=== PATIENT | male | born 1940 | race Caucasian/White ===

== ENCOUNTER → 2023-08-08 | Outpatient (CLI) | payer MEDICAID | END | disposition home or self-care (01) | LOC: XYW 14:40 | PROVIDERS: ATTEND Student in an Organized Health Care Education/Training Program | DX: I10 Essential (primary) hypertension (principal); R60.0 Localized edema | CPT/HCPCS: 93306 ==

== ENCOUNTER 2023-09-20 10:27 | Emergency (ER) | payer MEDICAID ==
[~2023-09-20] VITALS: Ht 406.4 cm; Wt 106.5 kg
[2023-09-20 11:28] LABS: Chloride 108 mmol/L (98-107); Potassium 3.8 mmol/L (3.5-5.1); Sodium 138 mmol/L (136-145)
[2023-09-20 11:29] LABS: Anion Gap 6 (5-15); Carbon Dioxide 24 mmol/L (20-30)
[2023-09-20 11:35] LABS: BUN/Creatinine Ratio 13.3 (10.0-20.0); Blood Urea Nitrogen 12 mg/dL (9-23); Glucose 110 mg/dL (74-106)
[2023-09-20] MEDS: CLINDAMYCIN 600MG IV 50 ML IV ONE (11:35)
[2023-09-20] MEDS: cloNIDine HCL 0.1 MG TAB PO ONE (11:44)
[2023-09-20 12:12] LABS: Erythrocyte Sedimentation Rate 22 mm/hr (0-20)
[2023-09-20 12:17] LABS: Basophils # (auto) 0 10 ^3/uL (0-0.2); Basophils % (auto) 0.3 % (0.0-2.0); Eosinophils # (auto) 0.1 10 ^3/uL (0-0.8); Eosinophils % (auto) 1.5 % (0.0-7.0); Hematocrit 44.3 % (41.0-53.0); Hemoglobin 15.6 g/dL (13.5-17.5); Lymphocytes # (auto) 1.1 10 ^3/uL (0.4-5.4); Lymphocytes % (auto) 20.6 % (10.0-50.0); Mean Corpuscular Hemoglobin 31.8 pg (28.0-32.0); Mean Corpuscular Hgb Conc. 35.1 g/dL (32.0-36.0); Mean Corpuscular Volume 90.5 fL (80.0-100.0); Monocytes # (auto) 0.4 10 ^3/uL (0-1.3); Monocytes % (auto) 7.7 % (0.0-12.0); Neutrophils # (auto) 3.7 10 ^3/uL (1.6-8.6); Neutrophils % (auto) 69.9 % (37.0-80.0); Nucleated Red Blood Cells % 0.1 %; Red Cell Distribution Width 13.4 % (11.8-14.3); White Blood Cell 5.3 10^3/uL (4.4-10.8)
[2023-09-20] MEDS ORDERED: CLIN150C PO (12:29)
[2023-09-20 14:22] VITALS: BP 129/55; PULSE 75; RESP 16; TEMP 97.9; O2SAT 96
== END 2023-09-20 14:23 | disposition home or self-care (01) ==
LOC: ER 10:29
DX: L03.115 Cellulitis of right lower limb (principal); E78.5 Hyperlipidemia, unspecified; I10 Essential (primary) hypertension
CPT/HCPCS: 36415; 73630; 80048; 85025; 85652; 96365; 99285; J3490

== ENCOUNTER → 2023-11-04 | Outpatient (CLI) | payer MEDICAID ==
[~2023-11-04] VITALS: Ht 175.3 cm; Wt 99.8 kg
[~2023-11-04] MED LIST: CLIN150C PO; REGADENOSON 0.4 MG/5 ML SYRG IV ONE
[2023-11-04] MEDS: REGADENOSON 0.4 MG/5 ML SYRG IV ONE (13:07)
== END | disposition home or self-care (01) ==
LOC: XYW 09:38
PROVIDERS: ATTEND Student in an Organized Health Care Education/Training Program
DX: R07.9 Chest pain, unspecified (principal)
CPT/HCPCS: 93017; J2785

== ENCOUNTER 2024-01-18 06:27 | Inpatient (IN) | payer OTHER, MEDICAID ==
[2024-01-16 10:57] LABS: Urine Bacteria None Seen /hpf (None Seen)
[2024-01-16 11:21] LABS: Urine Blood Negative /uL (Negative); Urine Clarity Clear (Clear); Urine Color Yellow (Yellow); Urine Mucus FEW (None Seen); Urine Protein, UAD TRACE (Negative); Urine Specific Gravity 1.024 (1.001-1.035); Urine Urobilinogen Normal (Negative); Urine WBC 1 /hpf (0 - 3)
[2024-01-16 11:23] LABS: Basophils # (auto) 0 10 ^3/uL (0-0.2); Basophils % (auto) 0.6 % (0.0-2.0); Eosinophils # (auto) 0.1 10 ^3/uL (0-0.8); Eosinophils % (auto) 1.5 % (0.0-7.0); Hematocrit 44.3 % (41.0-53.0); Lymphocytes # (auto) 1.1 10 ^3/uL (0.4-5.4); Mean Corpuscular Hemoglobin 31.2 pg (28.0-32.0); Mean Corpuscular Hgb Conc. 33.8 g/dL (32.0-36.0); Mean Corpuscular Volume 92.2 fL (80.0-100.0); Monocytes # (auto) 0.3 10 ^3/uL (0-1.3); Monocytes % (auto) 7.6 % (0.0-12.0); Neutrophils # (auto) 2.8 10 ^3/uL (1.6-8.6); Neutrophils % (auto) 64.3 % (37.0-80.0); Platelet Count (auto) 231 10^3/uL (140-450); Red Cell Distribution Width 13.3 % (11.8-14.3); White Blood Cell 4.4 10^3/uL (4.4-10.8)
[2024-01-16 11:28] LABS: Alanine Aminotransferase 13 U/L (7-40); Albumin 4.2 g/dL (3.2-4.8); Alkaline Phosphatase 109 U/L (46-116); Anion Gap 3 (5-15); Aspartate Aminotransferase 14 U/L (13-40); BUN/Creatinine Ratio 15.3 (10.0-20.0); Blood Urea Nitrogen 17 mg/dL (9-23); Carbon Dioxide 29 mmol/L (20-31); Chloride 107 mmol/L (98-107); Potassium 4.3 mmol/L (3.5-5.1); Sodium 139 mmol/L (136-145)
[2024-01-16 11:29] LABS: Bilirubin, Total 0.9 mg/dL (0.2-1.0); Total Protein 6.9 g/dL (5.7-8.2)
[2024-01-16 11:30] LABS: INR 1.09 (0.9-1.15); Partial Thromboplastin Time 28.4 SEC (24.5-34.5); Prothrombin Time 11.5 sec (9.3-11.8)
[2024-01-16 11:35] LABS: Calcium 10.5 mg/dL (8.7-10.4); Glucose 109 mg/dL (74-106)
[~2024-01-18] VITALS: Ht 177.8 cm; Wt 112.9 kg
[~2024-01-18 06:27] MED LIST changes: +AMLO1TAB22 PO; +ASPI1TAB20 PO; +ATOR-507 PO; -CLIN150C PO; +LOSA-534 PO; -REGADENOSON 0.4 MG/5 ML SYRG IV ONE
[2024-01-18] MEDS ORDERED: KETOROLAC TROMETH 30 MG/ML 1ML VIAL ONE ×2 (06:40→06:53)
[2024-01-18] MEDS: CELECOXIB 100 MG CAP PO ONE (06:45)
[2024-01-18] MEDS: ACETAMINOPHEN IV 1000 MG/100ML (10MG/ML) IV ONE (06:45)
[2024-01-18] MEDS: GABAPENTIN 300 MG CAP PO ONE (06:45)
[2024-01-18] MEDS ORDERED: ONDANSETRON HCL 4 MG/2 ML VIAL ONE (06:53)
[2024-01-18] MEDS ORDERED: GLYCOPYRROLATE 0.2 MG/ML 1ML VIAL ONE (06:53)
[2024-01-18] MEDS ORDERED: DexAMETHasone SOD PHOS 10MG/1ML VIAL INJ ONE ×2 (06:53→07:18)
[2024-01-18] MEDS ORDERED: LIDOCAINE 1% INJ PF 5ML AMP ONE (06:53)
[2024-01-18] MEDS ORDERED: PROPOFOL 10 MG/ML 20 ML IV ONE ×2 (06:53→08:00)
[2024-01-18] MEDS ORDERED: EPINEPHrine HCL 1 MG/1 ML AMP ONE (07:18)
--- NOTE | 2024-01-18 07:29 | DVHHP2 ---
History Allergies: Coded Allergies: NO KNOWN ALLERGIES (Unverified , 09/15/22) Chief Complaint: left groin pain, worse with ambulationn, use of cane on right side Present Illness(Onset/Duration several year history of progressive left groin pain, worse with ambulation, lauren to ambulate 1-2 hr per day using cane on right side Past Surgical History none declared Medications amiodipine atorvastatin losartan ASA "blood thinners" off x 3 d Physical Exam EENT NCAT Chest and Lungs CTA B Heart RRR neg MRG Abdomen NBS ND NT Extremities Left LE, NVI, no LLD, pain with PROM, poor PROM, flex 90m ext -5, min IR ER Impressions/Description Left hip OA , end stage, with acetabular cysts Plan pre op clearance done by internal med and caridology and determined to be intermediate risk, cleared for surgery surgery Left LISA CHEMA GASPAR MD Jan 18, 2024 07:29
[2024-01-18] MEDS ORDERED: LIDOCAINE HCL 2% TOP JELLY 5ML TOP ONE (07:46)
[2024-01-18] MEDS ORDERED: PHENYLEPHRINE HCL 10 MG/ML VL ONE (07:46)
[2024-01-18] MEDS ORDERED: ePHEDrine SULFATE 50 MG/ML AMP ONE (07:48)
[2024-01-18] MEDS: VANCOMYCIN HCL 1000 MG VL ONE (08:10)
[2024-01-18 09:13] VITALS: O2SAT 94
[2024-01-18] MEDS ORDERED: oxyCODONE HCL 5MG TAB PO PRN ×2 (09:30→09:45)
[2024-01-18] MEDS ORDERED: FLUMAZENIL 0.1 MG/ML INJ 10ML MDV IV PRN (09:30)
[2024-01-18] MEDS ORDERED: hydrALAZINE HCL 20 MG/ML VL IV PRN (09:30)
[2024-01-18] MEDS ORDERED: ePHEDrine SULFATE 50 MG/ML AMP IV PRN (09:30)
[2024-01-18] MEDS ORDERED: ONDANSETRON HCL 4 MG/2 ML VIAL IV PRN ×2 (09:30→11:30)
[2024-01-18] MEDS ORDERED: fentaNYL CITRATE 100 MCG/2 ML VL IV PRN (09:30)
[2024-01-18] MEDS ORDERED: HYDROmorphone HCL 2 MG/ML VL/or syr IV PRN (09:30)
[2024-01-18] MEDS ORDERED: NALOXONE HCL 0.4 MG/ML VIAL IV PRN (09:30)
[2024-01-18] MEDS ORDERED: NITROGLYCERIN 0.4 MG SL TAB SL PRN (10:00)
[2024-01-18] MEDS ORDERED: MORPHINE SULFATE INJ 2 MG/ml SYRG IV PRN ×2 (10:00)
[2024-01-18] MEDS: ceFAZolin 2 GM/D5W100ml 100 ML IV ONE (10:47)
[2024-01-18] MEDS: BUPIVACAINE 0.25% INJ 50ML VIAL ONE (10:48)
[2024-01-18] MEDS: TRANEXAMIC ACID 20 ML ONE (10:48)
[2024-01-18] MEDS ORDERED: ACETAMINOPHEN 325 MG TAB PO PRN (11:30)
--- NOTE | 2024-01-18 11:39 | DVHOP2 ---
Operative Report - 2 Report Details Date: 01/18/24 Preop Diagnosis: Left hip OA endstage Postop Diagnosis: same Surgeon: Chema Gaspar MD Molecular Genetic Pathologist: none Anesthesiologist: Dr Kellogg Anesthesia: Regional Drains: none Implant: summit stem , , 46 acetabular cut, one acetabular acrew, standard liner Consent: The patient was informed of the risks and benefits of the procedure. These include but are not limited to complications of anesthesia, postoperative infection, incomplete relief of symptoms, recurrence of symptoms, damage to blood vessels, nerves and tendons, deep venous thrombosis, pulmonary embolism and possible need for repeat surgery in the future. Complications: none Estimated Blood Loss: 100 cc Fluids: 1 l NS Findings: left hip OA end satge Indications for Surgery: Left hip OA end stage non - responseive to conservative care Name of Procedure Performed Left LISA Procedure Details Procedure Details: Patient brought to the operating room given Ancef 2 g IV piggyback preope ratively TXA 1 g IV piggyback preoperatively spinal anesthetic without complication by Dr. Kellogg placed into right lateral decubitus position axillary roll pads beneath between both legs belt across waist had an anatomic position arms well-padded pegs anterior and posterior well-padded sterile prep and drape left hip and lower extremity time-out performed confirmation left side correct side after review of operative consent history and physical my initials on left buttock standard Akila lying in back incision made centered over the greater trochanter sharp dissection through skin around the deep fascia division of the fascia blunt retraction of glute max fibers posteriorly tensor fascia augusto fibers anteriorly Charnley retractor placed internal rotation of leg and division of the external rotators and posterior capsule EN bloc Aguilera of posterior capsule to expose the hip joint hip dislocated with flexion adduction internal rotation osteotomy performed of femoral neck and 45 placement of Hohmann retractor anterior to the acetabulum removal of acetabulum labrum acetabular labrum circumferentially reaming 45 degree abduction 30 degree anteversion up to size 46 curette used to remove scar from a superior acetabular cyst bone graft packed into this cyst acetabulum tamped into place with one vertical screw at 45 degree abduction 30 of anteversion liner tapped into place and excellent seating of the liner confirmed femoral canal prepared by using box osteotome to remove far lateral neck canal finer lateralizing Reamer broach up to size 10 and 11 fixed stem system [place] type used trial reduction done with high offset plus six neck with excellent stability seen with flexion extension external rotation flexion 90 adduction 20 internal rotation 80 true component then tapped into place again a [place] stem high offset plus six neck stability assessed again with extension external rotation flexion 90 adduction 20 internal rotation 80 with excellent stability seen irrigation then performed vancomycin placed into deep joint capsule were repaired 0 Vicryl subcutaneous or so deep fascia 0 Vicryl subcutaneous 2-0 Vicryl skin angélica fluffs ABD paper tape no drains specimens complications Specimen: none Condition Stable Disposition Still a Patient CHEMA GASPAR MD Jan 18, 2024 11:39
[2024-01-18] MEDS: ceFAZolin 1GM/50ML 50 ML IV SCH (12:26)
[2024-01-18] MEDS: LACTATED RINGER'S 1,000 ML IV SCH (12:26)
[2024-01-18] MEDS: CLINDAMYCIN 600MG IV 50 ML IV SCH (12:26)
[2024-01-18 13:00] VITALS: BP 152/90; PULSE 84; RESP 18; TEMP 97.9; O2SAT 92
--- NOTE | 2024-01-18 13:17 | DVH ---
CLINICAL INFORMATION: 83 years old, Male; post op left total hip arthroplasty TECHNIQUE: Single AP view of the pelvis was obtained COMPARISON: Left hip radiographs dated 01/02/2024. FINDINGS: Postsurgical changes of left total hip arthroplasty. The prosthesis is in satisfactory alig nment and position. Soft tissue swelling and gas within the soft tissues adjacent to the surgical sit e, consistent with recent postoperative changes. Partially visualized cutaneous angélica in the soft t issues lateral to the right hip. [place] catheter incidentally noted, extending into the pelvis. Arteri al calcifications are seen. IMPRESSION: Postsurgical changes of right total hip arthroplasty in satisfactory alignment and position
--- NOTE | 2024-01-18 14:39 | DVHINCON2 ---
Date Seen: Jan 18, [address] Lanza Allergies: Coded Allergies: NO KNOWN ALLERGIES (Unverified , 09/15/22) Home Meds Reported Medications Atorvastatin Calcium (Lipitor) 40 Mg Tab, 40 MG PO DAILY, TAB 01/16/24 Losartan Potassium (Losartan Potassium) 50 Mg Tab, 50 MG PO QPM, TAB 01/16/24 Amlodipine Besylate (Amlodipine Besylate) 5 Mg Tab, 5 MG PO DAILY, TAB 01/16/24 Aspirin (Aspir-81) 81 Mg Tab, 81 MG PO DAILY, TAB 01/16/24 Current Medications Current Medications Medications (Trade) Dose Ordered Sig/Gisele Route PRN Reason Start Time Stop Time Status Last Admin Ondansetron HCl (Zofran) 4 mg ONCE PRN IV NAUSEA / VOMITING 01/18/24 09:30 01/18/24 09:36 DC Naloxone HCl (Narcan) 0.4 mg Q10M PRN IV NARCOTIC REVERSAL 01/18/24 09:30 01/18/24 09:51 DC Flumazenil (Romazicon Injection) 0.2 mg ONCE PRN IV BENZODIAZEPINE REVERSAL 01/18/24 09:30 01/18/24 09:36 DC Hydralazine HCl (Apresoline Injection) 5 mg Q10M PRN IV SBP>160 01/18/24 09:30 01/18/24 10:21 DC Ephedrine Sulfate (ePHEDrine SULFATE) 10 mg Q10M PRN IV SBP LESS THAN 90 01/18/24 09:30 01/18/24 10:11 DC Fentanyl Citrate 25 mcg Q1HP PRN IV BREAKTHROUGH PAIN (7-10) 01/18/24 09:30 01/18/24 09:36 DC Hydromorphone HCl (Dilaudid Injection) 0.5 mg Q10M PRN IV SEVERE PAIN (7-10 PAIN SCALE) 01/18/24 09:30 01/18/24 10:11 DC Oxycodone HCl 10 mg ONCE PRN PO MODERATE PAIN (4-6 PAIN SCALE) 01/18/24 09:30 01/18/24 09:37 DC Oxycodone HCl 10 mg ONCE PRN PO MODERATE PAIN (4-6 PAIN SCALE) 01/18/24 09:45 01/18/24 12:00 DC Nitroglycerin (Ntrostat Sublingual) 0.4 mg Q5MINP PRN SL FOR CHEST PAIN 01/18/24 10:00 Morphine Sulfate 2 mg Q30M PRN IV FOR CHEST PAIN 01/18/24 10:00 Morphine Sulfate 2 mg Q4HPRN PRN IV SEVERE PAIN (7-10 PAIN SCALE) 01/18/24 10:00 Lactated Ringer's 1,000 ml @ 100 mls/hr Q10H IV 01/18/24 11:30 01/18/24 12:26 Cefazolin Sodium 50 ml @ 50 mls/hr Q6H IV 01/18/24 11:30 01/19/24 00:29 01/18/24 12:26 Clindamycin Phosphate 50 ml @ 50 mls/hr Q6HR IV 01/18/24 12:00 01/19/24 00:59 01/18/24 12:26 Acetaminophen (Tylenol Tablet) 650 mg Q6HP PRN PO MILD PAIN OR TEMP >101 01/18/24 11:30 Ondansetron HCl (Zofran) 4 mg Q6HP PRN IV NAUSEA / VOMITING 01/18/24 11:30 Docusate Sodium (Colace Capsule) 100 mg Q12HR PO 01/18/24 22:00 Bisacodyl (Dulcolax EC Tablet) 5 mg Q12HP PRN PO FOR CONSTIPATION 01/18/24 11:30 Enoxaparin Sodium (Lovenox) 30 mg Q12HR SC 01/18/24 22:00 Vital Signs Vital Signs Date Time Temp Pulse Resp B/P (MAP) Pulse Ox O2 Delivery O2 Flow Rate FiO2 01/18/24 13:00 97.9 84 18 152/90 (110) 92 97.9 01/18/24 09:13 Room Air 0 94 Labs/Diagnostic Data Labs Test 01/16/24 10:53 Range/Units White Blood Count 4.4 4.4-10.8 10^3/uL Red Blood Count 4.80 4.5-5.90 10^6/uL Hemoglobin 15.0 13.5-17.5 g/dL Hematocrit 44.3 41.0-53.0 % Mean Corpuscular Volume 92.2 80.0-100.0 fL Mean Corpuscular Hemoglobin 31.2 28.0-32.0 pg Mean Corpuscular Hemoglobin Concent 33.8 32.0-36.0 g/dL Red Cell Distribution Width 13.3 11.8-14.3 % Platelet Count 231 140-450 10^3/uL Mean Platelet Volume 7.3 6.9-10.8 fL Neutrophils (%) (Auto) 64.3 37.0-80.0 % Lymphocytes (%) (Auto) 26.0 10.0-50.0 % Monocytes (%) (Auto) 7.6 0.0-12.0 % Eosinophils (%) (Auto) 1.5 0.0-7.0 % Basophils (%) (Auto) 0.6 0.0-2.0 % Neutrophils # (Auto) 2.8 1.6-8.6 10 ^3/uL Lymphocytes # (Auto) 1.1 0.4-5.4 10 ^3/uL Monocytes # (Auto) 0.3 0-1.3 10 ^3/uL Eosinophils # (Auto) 0.1 0-0.8 10 ^3/uL Basophils # (Auto) 0 0-0.2 10 ^3/uL Nucleated Red Blood Cells 0.0 % Prothrombin Time 11.5 9.3-11.8 sec Prothrombin Time INR 1.09 0.9-1.15 Activated Partial Thromboplast Time 28.4 24.5-34.5 SEC Urine Color Yellow Yellow Urine Clarity Clear Clear Urine pH 6.0 5.0-9.0 Urine Specific [place] 1.024 1.001-1.035 Urine Protein Trace H Negative Urine Ketones Negative Negative Urine Blood Negative Negative /uL Urine Nitrite Negative Negative Urine Bilirubin Negative Negative Urine Urobilinogen Normal Negative mg/dL Urine Leukocyte Esterase Negative Negative /uL Urine RBC 1 0 - 3 /hpf Urine WBC 1 0 - 3 /hpf Urine Squamous Epithelial Cells Few <5 /hpf Urine Bacteria None seen None Seen /hpf Urine Mucus Few None Seen Urine Glucose Normal Normal mg/dL Sodium Level 139 136-145 mmol/L Potassium Level 4.3 3.5-5.1 mmol/L Chloride Level 107 98-107 mmol/L Carbon Dioxide Level 29 20-31 mmol/L Anion Gap 3 L 5-15 Blood Urea Nitrogen 17 9-23 mg/dL Creatinine 1.11 0.700-1.30 mg/dL Glomerular Filtration Rate Calc 66 >90 mL/min BUN/Creatinine Ratio 15.3 10.0-20.0 Serum Glucose 109 H 74-106 mg/dL Calcium Level 10.5 H 8.7-10.4 mg/dL Total Bilirubin 0.9 0.2-1.0 mg/dL Aspartate Amino Transferase (AST) 14 13-40 U/L Alanine Aminotransferase (ALT) 13 7-40 U/L Alkaline Phosphatase 109 46-116 U/L Total Protein 6.9 5.7-8.2 g/dL Albumin 4.2 3.2-4.8 g/dL Assessment see dictated note Plan discussed with: Patient Date of Service: Jan 18, 2024 Billing Provider: GLORIA SALAZAR MD Common Visit Codes: [id number] INP/OBS CARE (HIGH) Secondary Visit Codes: [id number] CARE PLAN 30 MINUTES GLORIA SALAZAR MD Jan 18, 2024 14:39
--- NOTE | 2024-01-18 16:25 | DVHINCON2 ---
DATE OF CONSULTATION: 01/18/2024 INTERNAL MEDICINE CONSULT HISTORY OF PRESENT ILLNESS: The patient is an 83-year-old gentleman who was admitted after he underwent surgery on the left hip for DJD of the hip. The patient at this time denies any significant pain. No chest pain or shortness of breath. No nausea or vomiting. REVIEW OF SYSTEMS: Review of rest of systems is otherwise negative. PAST MEDICAL HISTORY: Significant for hypertension as well as hyperlipidemia. MEDICATIONS: Include amlodipine, aspirin, Lipitor and losartan. ALLERGIES: No known drug allergies. SOCIAL HISTORY: Denies smoking or alcohol. Lives at home with his . FAMILY HISTORY: Negative. PHYSICAL EXAMINATION: GENERAL: The patient is awake, alert. VITAL SIGNS: Temperature of 97.9, pulse 75 per minute, blood pressure 140/80. SHEENT: Unremarkable. NECK: There is no JVD, no pedal edema. LUNGS: Equal bilaterally. No added sounds. CARDIOVASCULAR: S1, S2 is regular, no murmurs. ABDOMEN: Soft. There is no organomegaly. NEUROLOGIC: Nonfocal. MUSCULOSKELETAL: There is a dressing at the site of the left hip surgery. ASSESSMENT AND PLAN: * 1. Hypertension, for which the patient's blood pressure will be monitored. * 2. Hyperlipidemia. * 3. Obesity. * 4. Advance care planning, the patient is a full code. Time spent was 19 minutes. * 5. Status post left hip surgery for DJD of the hip for which he will be placed on pain medications and receive physical therapy. MD ADRI Louis/BRETT TID: [id number] RECEIPT: [id number]
[2024-01-18] MEDS: hydrALAZINE HCL 20 MG/ML VL IV PRN (16:46)
[2024-01-18] MEDS: amLODIPine BESYLATE 5 MG TAB PO ONE (16:46)
[2024-01-18 17:48] VITALS: BP 124/69; PULSE 87; RESP 17; TEMP 98.8; O2SAT 98
[2024-01-18 18:05] VITALS: BP 147/70
[2024-01-18 21:00] VITALS: BP 108/69; PULSE 100; RESP 20; TEMP 98.9; O2SAT 94
[2024-01-18] MEDS: DOCUSATE SOD 100 MG CAP PO SCH (22:19)
[2024-01-18] MEDS: ENOXAPARIN SOD 30 MG/0.3 ML SYRINGE SC SCH (22:20)
[2024-01-19 01:00] VITALS: BP 110/70; PULSE 96; RESP 18; TEMP 98.8; O2SAT 99
[2024-01-19] MEDS: HYDROcodone-ACET 5/325MG TAB PO PRN (03:44)
[2024-01-19 05:00] VITALS: BP 119/60; PULSE 74; RESP 20; TEMP 98.8; O2SAT 95
[2024-01-19 07:13] LABS: Basophils # (auto) 0 10 ^3/uL (0-0.2); Eosinophils # (auto) 0 10 ^3/uL (0-0.8); Hematocrit 35.5 % (41.0-53.0); Lymphocytes # (auto) 0.8 10 ^3/uL (0.4-5.4); Lymphocytes % (auto) 5.7 % (10.0-50.0); Mean Corpuscular Hemoglobin 31.3 pg (28.0-32.0); Mean Corpuscular Hgb Conc. 33.7 g/dL (32.0-36.0); Mean Corpuscular Volume 92.7 fL (80.0-100.0); Monocytes % (auto) 7.5 % (0.0-12.0); Neutrophils # (auto) 11.5 10 ^3/uL (1.6-8.6); Neutrophils % (auto) 86.8 % (37.0-80.0); Platelet Count (auto) 199 10^3/uL (140-450); Red Blood Cells 3.83 10^6/uL (4.5-5.90); Red Cell Distribution Width 13.3 % (11.8-14.3); White Blood Cell 13.3 10^3/uL (4.4-10.8)
[2024-01-19 07:29] LABS: Alanine Aminotransferase 12 U/L (7-40); Albumin 3.3 g/dL (3.2-4.8); Alkaline Phosphatase 77 U/L (46-116); Anion Gap 7 (5-15); Aspartate Aminotransferase 21 U/L (13-40); Bilirubin, Total 0.4 mg/dL (0.2-1.0); Blood Urea Nitrogen 22 mg/dL (9-23); Calcium 9.9 mg/dL (8.7-10.4); Carbon Dioxide 23 mmol/L (20-31); Potassium 4.4 mmol/L (3.5-5.1); Sodium 138 mmol/L (136-145)
[2024-01-19 07:38] LABS: Chloride 108 mmol/L (98-107); Glucose 219 mg/dL (74-106); Total Protein 5.3 g/dL (5.7-8.2)
[2024-01-19 09:22] VITALS: BP 100/64; PULSE 85; RESP 18; TEMP 98; O2SAT 96
[2024-01-19] MEDS: amLODIPine BESYLATE 5 MG TAB PO SCH (11:05)
[2024-01-19 13:12] VITALS: BP 110/66; PULSE 80; RESP 19; TEMP 98.3; O2SAT 95
--- NOTE | 2024-01-19 13:55 | DVHPN2 ---
Progress Note Date Seen: Jan 19, 2024 Medical Necessity Reason Pt with a Central, PICC or Fol: No Subjective Patient reports: No new complaints Review of Systems: HEENT:Normal, CVS:Normal, RESPIRATORY:Normal, GI:Normal, :Normal, MSK:Normal, NEURO:Normal Objective vital signs Vital Sign Date Time Temp Pulse Resp B/P (MAP) Pulse Ox O2 Delivery O2 Flow Rate FiO2 01/19/24 13:12 98.3 80 19 110/66 (81) 95 98.3 01/19/24 07:33 Room Air* 0 21 Total Intake and Output 01/18/24 01/18/24 01/19/24 15:00 23:00 07:00 Intake Total 100 ml 400 ml 600 ml Output Total 200 ml 800 ml 350 ml Balance -100 ml -400 ml 250 ml medications Current Medications Medications Dose Ordered Sig/Gisele Route Start Time Stop Time Status Last Admin Dose Admin Nitroglycerin 0.4 mg Q5MINP PRN SL 01/18/24 10:00 Morphine Sulfate 2 mg Q30M PRN IV 01/18/24 10:00 Morphine Sulfate 2 mg Q4HPRN PRN IV 01/18/24 10:00 Lactated Ringer's 1,000 ml @ 100 mls/hr Q10H IV 01/18/24 11:30 01/19/24 08:07 100 MLS/HR Acetaminophen 650 mg Q6HP PRN PO 01/18/24 11:30 Ondansetron HCl 4 mg Q6HP PRN IV 01/18/24 11:30 Docusate Sodium 100 mg Q12HR PO 01/18/24 22:00 01/19/24 11:03 100 MG Bisacodyl 5 mg Q12HP PRN PO 01/18/24 11:30 Enoxaparin Sodium 30 mg Q12HR SC 01/18/24 22:00 01/19/24 11:04 30 MG Acetaminophen/ Hydrocodone Bitart 1 tab Q6HPRN PRN PO 01/18/24 14:45 01/19/24 03:44 1 TAB Amlodipine Besylate 5 mg DAILY PO 01/19/24 10:00 01/19/24 11:05 5 MG Hydralazine HCl 10 mg Q6HP PRN IV 01/18/24 16:00 01/18/24 16:46 10 MG Examination: GENERAL:Normal, HEENT:Normal, NECK:Normal, LUNGS:Normal, CVS:Normal, ABDOMEN:Normal, MSK:Normal, MSK:Abnormal (left hip dressing), SKIN:Normal, NEURO:Normal, :Normal laboratory and microbiology Laboratory Tests 01/19/24 05:53 Test 01/19/24 05:53 Range/Units Serum Glucose 219 #H 74-106 mg/dL Problem List/Assessment/Plan Problem List/Assessment/Plan * 1. Hypertension, for which the patient's blood pressure will be monitored. * 2. Hyperlipidemia. * 3. Obesity. * 4. Advance care planning, the patient is a full code. Time spent was 19 minutes. * 5. Status post left hip surgery for DJD of the hip for which he will be placed on pain medications and receive physical therapy. Plan discussed with: Patient My Orders My Orders Orders - GLORIA SALAZAR MD Procedure Category Date Status Time Hydrocodone-Acet PHA 01/18/24 In Process 5/325mg Tab ([place] 14:45 Amlodipine Tablet PHA 01/19/24 In Process (Norvasc Tablet) 10:00 Hydralazine Injection PHA 01/18/24 In Process (Apresoline Inject 16:00 * Brand Recorder CONS 01/18/24 Transmitted Consult 16:23 Date of Service: Jan 19, 2024 Billing Provider: GLORIA SALAZAR MD Common Visit Codes: [id number] INP/OBS CARE(HIGH) Secondary Visit Codes: [id number] CARE PLAN 30 MINUTES GLORIA SALAZAR MD Jan 19, 2024 13:55
[2024-01-19] MEDS: LACTATED RINGER'S 1,000 ML IV SCH (14:40)
[2024-01-19 17:17] VITALS: BP 158/70; PULSE 84; RESP 20; TEMP 98.2; O2SAT 95
--- NOTE | 2024-01-19 18:32 | DVHPN2 ---
Date of Progress Note Date of Progress Note Date of Progress Note: 01/19/24 Date of Admission Date of Admission Date of Admission: Date of Admission: Jan 18, 2024 at 09:56 Overnight Events Overnight events Overnight Events Pt tripp pain on PO meds [place] out, able to void tripp PT today Family History Family History Family History: Patient reports no known family medical history. Allergies: Coded Allergies: NO KNOWN ALLERGIES (Unverified , 09/15/22) Home Meds Reported Medications Atorvastatin Calcium (Lipitor) 40 Mg Tab, 40 MG PO DAILY, TAB 01/16/24 Losartan Potassium (Losartan Potassium) 50 Mg Tab, 50 MG PO QPM, TAB 01/16/24 Amlodipine Besylate (Amlodipine Besylate) 5 Mg Tab, 5 MG PO DAILY, TAB 01/16/24 Aspirin (Aspir-81) 81 Mg Tab, 81 MG PO DAILY, TAB 01/16/24 Current Medications Current Medications Medications (Trade) Dose Ordered Sig/Gisele Route PRN Reason Start Time Stop Time Status Last Admin Docusate Sodium (Colace Capsule) 100 mg Q12HR PO 01/18/24 22:00 01/19/24 11:03 Enoxaparin Sodium (Lovenox) 30 mg Q12HR SC 01/18/24 22:00 01/19/24 11:04 Amlodipine Besylate (Norvasc Tablet) 5 mg DAILY PO 01/19/24 10:00 01/19/24 13:53 DC 01/19/24 11:05 Lactated Ringer's 1,000 ml @ 75 mls/hr [id number] IV 01/19/24 14:00 01/19/24 17:24 DC 01/19/24 14:40 Physical Examination General Examination: Last Vital sign Vital Signs Date Time Temp Pulse Resp B/P (MAP) Pulse Ox O2 Delivery O2 Flow Rate FiO2 01/19/24 17:17 98.2 84 20 158/70 (99) 95 98.2 01/19/24 07:33 Room Air* 0 21 General: General: No apparent distress, appears comfortable. Cooperative. Extremities: Left LE NVI, no drainage Skin: no surgical drainage Neurological Examination: Neurological Examination: Mental Status: Cranial Nerves: Motor Examination: Reflexes: Sensory: Coordination: Gait: NVI Labs: Labs: Laboratory Tests Test 01/16/24 10:53 01/19/24 05:53 Range/Units White Blood Count 4.4 13.3 #H 4.4-10.8 10^3/uL Red Blood Count 4.80 3.83 L 4.5-5.90 10^6/uL Hemoglobin 15.0 12.0 #L 13.5-17.5 g/dL Hematocrit 44.3 35.5 #L 41.0-53.0 % Mean Corpuscular Volume 92.2 92.7 80.0-100.0 fL Mean Corpuscular Hemoglobin 31.2 31.3 28.0-32.0 pg Mean Corpuscular Hemoglobin Concent 33.8 33.7 32.0-36.0 g/dL Red Cell Distribution Width 13.3 13.3 11.8-14.3 % Platelet Count 231 199 140-450 10^3/uL Mean Platelet Volume 7.3 7.8 6.9-10.8 fL Neutrophils (%) (Auto) 64.3 86.8 H 37.0-80.0 % Lymphocytes (%) (Auto) 26.0 5.7 L 10.0-50.0 % Monocytes (%) (Auto) 7.6 7.5 0.0-12.0 % Eosinophils (%) (Auto) 1.5 0.0 0.0-7.0 % Basophils (%) (Auto) 0.6 0.0 0.0-2.0 % Neutrophils # (Auto) 2.8 11.5 H 1.6-8.6 10 ^3/uL Lymphocytes # (Auto) 1.1 0.8 0.4-5.4 10 ^3/uL Monocytes # (Auto) 0.3 1.0 0-1.3 10 ^3/uL Eosinophils # (Auto) 0.1 0 0-0.8 10 ^3/uL Basophils # (Auto) 0 0 0-0.2 10 ^3/uL Nucleated Red Blood Cells 0.0 0.0 % Prothrombin Time 11.5 9.3-11.8 sec Prothrombin Time INR 1.09 0.9-1.15 Activated Partial Thromboplast Time 28.4 24.5-34.5 SEC Urine Color Yellow Yellow Urine Clarity Clear Clear Urine pH 6.0 5.0-9.0 Urine Specific [place] 1.024 1.001-1.035 Urine Protein Trace H Negative Urine Ketones Negative Negative Urine Blood Negative Negative /uL Urine Nitrite Negative Negative Urine Bilirubin Negative Negative Urine Urobilinogen Normal Negative mg/dL Urine Leukocyte Esterase Negative Negative /uL Urine RBC 1 0 - 3 /hpf Urine WBC 1 0 - 3 /hpf Urine Squamous Epithelial Cells Few <5 /hpf Urine Bacteria None seen None Seen /hpf Urine Mucus Few None Seen Urine Glucose Normal Normal mg/dL Sodium Level 139 138 136-145 mmol/L Potassium Level 4.3 4.4 3.5-5.1 mmol/L Chloride Level 107 108 H 98-107 mmol/L Carbon Dioxide Level 29 23 20-31 mmol/L Anion Gap 3 L 7 5-15 Blood Urea Nitrogen 17 22 9-23 mg/dL Creatinine 1.11 1.10 0.700-1.30 mg/dL Glomerular Filtration Rate Calc 66 67 >90 mL/min BUN/Creatinine Ratio 15.3 20.0 10.0-20.0 Serum Glucose 109 H 219 #H 74-106 mg/dL Calcium Level 10.5 H 9.9 8.7-10.4 mg/dL Total Bilirubin 0.9 0.4 0.2-1.0 mg/dL Aspartate Amino Transferase (AST) 14 21 13-40 U/L Alanine Aminotransferase (ALT) 13 12 7-40 U/L Alkaline Phosphatase 109 77 46-116 U/L Total Protein 6.9 5.3 L 5.7-8.2 g/dL Albumin 4.2 3.3 3.2-4.8 g/dL Assessment/Plan Assessment/Plan Assessment and Plan:Serge Zuñiga is a 83 year old male POD 1 s/p left LISA, doing well 1) dc planning 2) I will place clean dressing tomorrow Plan discussed with: Patient CHEMA GASPAR MD Jan 19, 2024 18:32
[2024-01-19 21:00] VITALS: BP 138/99; PULSE 75; RESP 20; TEMP 98.9; O2SAT 94
[2024-01-20] VITALS (8 sets, daily range): BP systolic 114–164; BP diastolic 66–89; PULSE 68–85; RESP 18–20; TEMP 97.9–98.7; O2SAT 94–97
[2024-01-20 07:51] LABS: Anion Gap 5 (5-15); Carbon Dioxide 25 mmol/L (20-31); Potassium 3.8 mmol/L (3.5-5.1); Sodium 138 mmol/L (136-145)
[2024-01-20 07:52] LABS: Calcium 9.7 mg/dL (8.7-10.4)
[2024-01-20 07:57] LABS: BUN/Creatinine Ratio 20.2 (10.0-20.0); Blood Urea Nitrogen 17 mg/dL (9-23)
[2024-01-20 08:01] LABS: Chloride 108 mmol/L (98-107); Glucose 118 mg/dL (74-106)
[2024-01-20 08:09] LABS: Basophils # (auto) 0 10 ^3/uL (0-0.2); Basophils % (auto) 0.3 % (0.0-2.0); Eosinophils # (auto) 0.1 10 ^3/uL (0-0.8); Eosinophils % (auto) 1.6 % (0.0-7.0); Hematocrit 36.7 % (41.0-53.0); Hemoglobin 12.6 g/dL (13.5-17.5); Lymphocytes # (auto) 1.3 10 ^3/uL (0.4-5.4); Lymphocytes % (auto) 14.1 % (10.0-50.0); Mean Corpuscular Hemoglobin 31.7 pg (28.0-32.0); Mean Corpuscular Hgb Conc. 34.2 g/dL (32.0-36.0); Mean Corpuscular Volume 92.7 fL (80.0-100.0); Monocytes # (auto) 0.8 10 ^3/uL (0-1.3); Monocytes % (auto) 9.1 % (0.0-12.0); Neutrophils # (auto) 6.7 10 ^3/uL (1.6-8.6); Neutrophils % (auto) 74.9 % (37.0-80.0); Nucleated Red Blood Cells % 0.1 %; Platelet Count (auto) 190 10^3/uL (140-450); Red Blood Cells 3.96 10^6/uL (4.5-5.90); Red Cell Distribution Width 13.5 % (11.8-14.3)
--- NOTE | 2024-01-20 10:01 | DVHPN2 ---
Date of Progress Note Date of Progress Note Date of Progress Note: 01/20/24 Date of Admission Date of Admission Date of Admission: Date of Admission: Jan 18, 2024 at 09:56 Overnight Events Overnight events Overnight Events Pt using joseph, tripp pain on PO meds, tripp PT Family History Family History Family History: Patient reports no known family medical history. Allergies: Coded Allergies: NO KNOWN ALLERGIES (Unverified , 09/15/22) Home Meds Reported Medications Atorvastatin Calcium (Lipitor) 40 Mg Tab, 40 MG PO DAILY, TAB 01/16/24 Losartan Potassium (Losartan Potassium) 50 Mg Tab, 50 MG PO QPM, TAB 01/16/24 Amlodipine Besylate (Amlodipine Besylate) 5 Mg Tab, 5 MG PO DAILY, TAB 01/16/24 Aspirin (Aspir-81) 81 Mg Tab, 81 MG PO DAILY, TAB 01/16/24 Current Medications Current Medications Medications (Trade) Dose Ordered Sig/Gisele Route PRN Reason Start Time Stop Time Status Last Admin Amlodipine Besylate (Norvasc Tablet) 5 mg DAILY PO 01/19/24 10:00 01/19/24 13:53 DC 01/19/24 11:05 Lactated Ringer's 1,000 ml @ 75 mls/hr [id number] IV 01/19/24 14:00 01/19/24 17:24 DC 01/19/24 14:40 Physical Examination General Examination: Last Vital sign Vital Signs Date Time Temp Pulse Resp B/P (MAP) Pulse Ox O2 Delivery O2 Flow Rate FiO2 01/20/24 07:58 75 18 96 Room Air* 0 21 01/20/24 05:00 98.7 123/79 (94) 98.7 General: General: No apparent distress, appears comfortable. Cooperative. Extremities: Left buttock incision no drainage, NVI left LE Neurological Examination: Neurological Examination: Mental Status: Cranial Nerves: Motor Examination: Reflexes: Sensory: Coordination: Gait: Labs: Labs: Laboratory Tests Test 01/16/24 10:53 01/19/24 05:53 01/20/24 07:10 Range/Units White Blood Count 4.4 13.3 #H 9.0 # 4.4-10.8 10^3/uL Red Blood Count 4.80 3.83 L 3.96 L 4.5-5.90 10^6/uL Hemoglobin 15.0 12.0 #L 12.6 L 13.5-17.5 g/dL Hematocrit 44.3 35.5 #L 36.7 L 41.0-53.0 % Mean Corpuscular Volume 92.2 92.7 92.7 80.0-100.0 fL Mean Corpuscular Hemoglobin 31.2 31.3 31.7 28.0-32.0 pg Mean Corpuscular Hemoglobin Concent 33.8 33.7 34.2 32.0-36.0 g/dL Red Cell Distribution Width 13.3 13.3 13.5 11.8-14.3 % Platelet Count 231 199 190 140-450 10^3/uL Mean Platelet Volume 7.3 7.8 7.8 6.9-10.8 fL Neutrophils (%) (Auto) 64.3 86.8 H 74.9 37.0-80.0 % Lymphocytes (%) (Auto) 26.0 5.7 L 14.1 10.0-50.0 % Monocytes (%) (Auto) 7.6 7.5 9.1 0.0-12.0 % Eosinophils (%) (Auto) 1.5 0.0 1.6 0.0-7.0 % Basophils (%) (Auto) 0.6 0.0 0.3 0.0-2.0 % Neutrophils # (Auto) 2.8 11.5 H 6.7 1.6-8.6 10 ^3/uL Lymphocytes # (Auto) 1.1 0.8 1.3 0.4-5.4 10 ^3/uL Monocytes # (Auto) 0.3 1.0 0.8 0-1.3 10 ^3/uL Eosinophils # (Auto) 0.1 0 0.1 0-0.8 10 ^3/uL Basophils # (Auto) 0 0 0 0-0.2 10 ^3/uL Nucleated Red Blood Cells 0.0 0.0 0.1 % Prothrombin Time 11.5 9.3-11.8 sec Prothrombin Time INR 1.09 0.9-1.15 Activated Partial Thromboplast Time 28.4 24.5-34.5 SEC Urine Color Yellow Yellow Urine Clarity Clear Clear Urine pH 6.0 5.0-9.0 Urine Specific [place] 1.024 1.001-1.035 Urine Protein Trace H Negative Urine Ketones Negative Negative Urine Blood Negative Negative /uL Urine Nitrite Negative Negative Urine Bilirubin Negative Negative Urine Urobilinogen Normal Negative mg/dL Urine Leukocyte Esterase Negative Negative /uL Urine RBC 1 0 - 3 /hpf Urine WBC 1 0 - 3 /hpf Urine Squamous Epithelial Cells Few <5 /hpf Urine Bacteria None seen None Seen /hpf Urine Mucus Few None Seen Urine Glucose Normal Normal mg/dL Sodium Level 139 138 138 136-145 mmol/L Potassium Level 4.3 4.4 3.8 3.5-5.1 mmol/L Chloride Level 107 108 H 108 H 98-107 mmol/L Carbon Dioxide Level 29 23 25 20-31 mmol/L Anion Gap 3 L 7 5 5-15 Blood Urea Nitrogen 17 22 17 9-23 mg/dL Creatinine 1.11 1.10 0.84 0.700-1.30 mg/dL Glomerular Filtration Rate Calc 66 67 87 >90 mL/min BUN/Creatinine Ratio 15.3 20.0 20.2 H 10.0-20.0 Serum Glucose 109 H 219 #H 118 #H 74-106 mg/dL Calcium Level 10.5 H 9.9 9.7 8.7-10.4 mg/dL Total Bilirubin 0.9 0.4 0.2-1.0 mg/dL Aspartate Amino Transferase (AST) 14 21 13-40 U/L Alanine Aminotransferase (ALT) 13 12 7-40 U/L Alkaline Phosphatase 109 77 46-116 U/L Total Protein 6.9 5.3 L 5.7-8.2 g/dL Albumin 4.2 3.3 3.2-4.8 g/dL Assessment/Plan Assessment/Plan Assessment and Plan:Serge Zuñiga is a 83 year old male POD 2 s/p Left LISA 1) wean from joseph 2) clear for dc from ortho view 3) follow up ortho clinic 2 wks Plan discussed with: Patient CHEMA GASPAR MD Jan 20, 2024 10:01
--- NOTE | 2024-01-20 11:15 | DVHPN2 ---
Subjective The patient is seen and examined at bedside. No complaint today. Reviewed: Care Plan, H&P, Labs, Medications, Previous Orders, Radiology Changes from previous H/P or p: No Changes Objective Vitals Vital Signs Date Time Temp Pulse Resp B/P (MAP) Pulse Ox O2 Delivery O2 Flow Rate FiO2 01/20/24 09:00 97.9 84 20 160/85 (110) 94 97.9 01/20/24 07:58 Room Air* 0 21 Intake/Output Intake and Output 01/20/24 07:00 Intake Total 1020 ml Output Total 1400 ml Balance -380 ml Intake Oral 1020 ml Output Urine Total 1400 ml General Appearance: Alert, Cooperative, No acute distress HEENT: Atraumatic, PERRLA, EOMI, Mucous membr. moist/pink Neck: Supple Lungs: Clear to auscultation, Normal air movement Cardiovascular: Regular rate, Normal S1, Normal S2, No murmurs, Gallops, Rubs Psych/Mental Status: Mental status NL Medications Current Medications Medications Dose Ordered Sig/Gisele Route Start Time Stop Time Status Last Admin Dose Admin Nitroglycerin 0.4 mg Q5MINP PRN SL 01/18/24 10:00 Morphine Sulfate 2 mg Q30M PRN IV 01/18/24 10:00 Morphine Sulfate 2 mg Q4HPRN PRN IV 01/18/24 10:00 Acetaminophen 650 mg Q6HP PRN PO 01/18/24 11:30 Ondansetron HCl 4 mg Q6HP PRN IV 01/18/24 11:30 Docusate Sodium 100 mg Q12HR PO 01/18/24 22:00 01/20/24 09:42 100 MG Bisacodyl 5 mg Q12HP PRN PO 01/18/24 11:30 Enoxaparin Sodium 30 mg Q12HR SC 01/18/24 22:00 01/20/24 09:42 30 MG Acetaminophen/ Hydrocodone Bitart 1 tab Q6HPRN PRN PO 01/18/24 14:45 01/20/24 09:40 1 TAB Hydralazine HCl 10 mg Q6HP PRN IV 01/18/24 16:00 01/20/24 01:23 10 MG Laboratory Results Laboratory Tests 01/20/24 07:10 Chemistry Test 01/20/24 07:10 Calcium Level 9.7 mg/dL (8.7-10.4) Urinalysis Test 01/16/24 10:53 Urine Color Yellow (Yellow) Urine Clarity Clear (Clear) Urine pH 6.0 (5.0-9.0) Urine Specific [place] 1.024 (1.001-1.035) Urine Protein Trace (Negative) H Urine Ketones Negative (Negative) Urine Blood Negative /uL (Negative) Urine Nitrite Negative (Negative) Urine Bilirubin Negative (Negative) Urine Urobilinogen Normal mg/dL (Negative) Urine Leukocyte Esterase Negative /uL (Negative) Urine RBC 1 /hpf (0 - 3) Urine WBC 1 /hpf (0 - 3) Urine Squamous Epithelial Cells Few /hpf (<5) Urine Bacteria None seen /hpf (None Seen) Urine Mucus Few (None Seen) Urine Glucose Normal mg/dL (Normal) Labs and/or images reviewed: Labs reviewed by me Assessment/Plan Assessment/Plan . 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 Continuing with hypertensive medication. We will put him hydralazine 10 mg IV q.6 hours p.r.n. for systolic greater than 160 her diastolic greater than 100. Continuing IV pain medication. Discharge planning to custodial home facility. Plan discussed with: Patient Date of Service: Jan 20, 2024 Billing Provider: SANDY OSEI MD Common Visit Codes: [id number] INP/OBS CARE(HIGH) SANDY OSEI MD Jan 20, 2024 11:14
[2024-01-20] MEDS: amLODIPine BESYLATE 5 MG TAB PO SCH (13:21)
[2024-01-20] MEDS: BISACODYL 5 MG EC TAB PO PRN (13:21)
[2024-01-20] MEDS: LOSARTAN POTASSIUM 50 MG TAB PO SCH (22:34)
[2024-01-21] VITALS (7 sets, daily range): BP systolic 113–133; BP diastolic 60–74; PULSE 74–93; RESP 17–20; TEMP 97.8–98.8; O2SAT 19–96
[2024-01-21 06:16] LABS: Hematocrit 35.2 % (41.0-53.0); Hemoglobin 12.1 g/dL (13.5-17.5)
--- NOTE | 2024-01-21 10:30 | DVHPN2 ---
Subjective The patient is seen and examined at bedside. No complaint today. want him to go to [place]. Reviewed: Care Plan, H&P, Labs, Medications, Previous Orders, Radiology Changes from previous H/P or p: No Changes Objective Vitals Vital Signs Date Time Temp Pulse Resp B/P (MAP) Pulse Ox O2 Delivery O2 Flow Rate FiO2 01/21/24 09:37 115/67 01/21/24 09:00 97.8 93 93 97.8 01/21/24 07:38 18 Room Air* 0 21 Intake/Output Intake and Output 01/21/24 07:00 Intake Total 1350 ml Output Total 150 ml Balance 1200 ml Intake Oral 1350 ml Output Urine Total 150 ml General Appearance: Alert, Cooperative, No acute distress HEENT: Atraumatic, PERRLA, EOMI, Mucous membr. moist/pink Neck: Supple Lungs: Clear to auscultation, Normal air movement Cardiovascular: Regular rate, Normal S1, Normal S2, No murmurs, Gallops, Rubs Psych/Mental Status: Mental status NL Medications Current Medications Medications Dose Ordered Sig/Gisele Route Start Time Stop Time Status Last Admin Dose Admin Nitroglycerin 0.4 mg Q5MINP PRN SL 01/18/24 10:00 Morphine Sulfate 2 mg Q30M PRN IV 01/18/24 10:00 Morphine Sulfate 2 mg Q4HPRN PRN IV 01/18/24 10:00 Acetaminophen 650 mg Q6HP PRN PO 01/18/24 11:30 Ondansetron HCl 4 mg Q6HP PRN IV 01/18/24 11:30 Docusate Sodium 100 mg Q12HR PO 01/18/24 22:00 01/21/24 09:36 100 MG Bisacodyl 5 mg Q12HP PRN PO 01/18/24 11:30 01/20/24 13:21 5 MG Enoxaparin Sodium 30 mg Q12HR SC 01/18/24 22:00 01/21/24 09:37 30 MG Acetaminophen/ Hydrocodone Bitart 1 tab Q6HPRN PRN PO 01/18/24 14:45 01/21/24 08:44 1 TAB Hydralazine HCl 10 mg Q6HP PRN IV 01/18/24 16:00 01/20/24 01:23 10 MG Amlodipine Besylate 5 mg DAILY PO 01/20/24 12:00 01/21/24 09:37 5 MG Losartan Potassium 50 mg HS PO 01/20/24 22:00 01/20/24 22:34 50 MG Laboratory Results Laboratory Tests 01/20/24 07:10 01/21/24 05:00 Urinalysis Test 01/16/24 10:53 Urine Color Yellow (Yellow) Urine Clarity Clear (Clear) Urine pH 6.0 (5.0-9.0) Urine Specific [place] 1.024 (1.001-1.035) Urine Protein Trace (Negative) H Urine Ketones Negative (Negative) Urine Blood Negative /uL (Negative) Urine Nitrite Negative (Negative) Urine Bilirubin Negative (Negative) Urine Urobilinogen Normal mg/dL (Negative) Urine Leukocyte Esterase Negative /uL (Negative) Urine RBC 1 /hpf (0 - 3) Urine WBC 1 /hpf (0 - 3) Urine Squamous Epithelial Cells Few /hpf (<5) Urine Bacteria None seen /hpf (None Seen) Urine Mucus Few (None Seen) Urine Glucose Normal mg/dL (Normal) Labs and/or images reviewed: Labs reviewed by me Assessment/Plan Assessment/Plan . 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 Continuing with hypertensive medication. We will put him hydralazine 10 mg IV q.6 hours p.r.n. for systolic greater than 160 her diastolic greater than 100. Continuing IV pain medication. Explained to his that his insurance did not cover [place]. Discharge planning to [facility] facility. Plan discussed with: Patient, Spouse My Orders Orders - SANDY OSEI MD Procedure Category Date Status Time Amlodipine Tablet PHA 01/20/24 In Process (Norvasc Tablet) 12:00 Losartan Tablet PHA 01/20/24 In Process (Cozaar Tablet) 22:00 Date of Service: Jan 21, 2024 Billing Provider: SANDY OSEI MD Common Visit Codes: [id number] INP/OBS CARE(HIGH) SANDY OSEI MD Jan 21, 2024 10:30
[2024-01-22] VITALS (7 sets, daily range): BP systolic 113–159; BP diastolic 58–83; PULSE 73–83; RESP 16–21; TEMP 97.8–98.2; O2SAT 93–97
--- NOTE | 2024-01-22 13:02 | DVHPN2 ---
Subjective The patient is seen and examined at bedside. No complaint today. Daughter at bedside. Reviewed: Care Plan, H&P, Labs, Medications, Previous Orders, Radiology Changes from previous H/P or p: No Changes Objective Vitals Vital Signs Date Time Temp Pulse Resp B/P (MAP) Pulse Ox O2 Delivery O2 Flow Rate FiO2 01/22/24 09:08 151/83 01/22/24 09:00 97.8 75 21 97 97.8 01/21/24 20:59 21 01/21/24 20:59 Room Air 01/21/24 20:59 0 Intake/Output Intake and Output 01/22/24 07:00 Intake Total 1568 ml Output Total 600 ml Balance 968 ml Intake Oral 1568 ml Output Urine Total 600 ml # Voids 3 # Bowel Movements 3 General Appearance: Alert, Cooperative, No acute distress HEENT: Atraumatic, PERRLA, EOMI, Mucous membr. moist/pink Neck: Supple Lungs: Clear to auscultation, Normal air movement Cardiovascular: Regular rate, Normal S1, Normal S2, No murmurs, Gallops, Rubs Psych/Mental Status: Mental status NL Medications Current Medications Medications Dose Ordered Sig/Gisele Route Start Time Stop Time Status Last Admin Dose Admin Nitroglycerin 0.4 mg Q5MINP PRN SL 01/18/24 10:00 Morphine Sulfate 2 mg Q30M PRN IV 01/18/24 10:00 Morphine Sulfate 2 mg Q4HPRN PRN IV 01/18/24 10:00 Acetaminophen 650 mg Q6HP PRN PO 01/18/24 11:30 Ondansetron HCl 4 mg Q6HP PRN IV 01/18/24 11:30 Docusate Sodium 100 mg Q12HR PO 01/18/24 22:00 01/22/24 09:08 100 MG Bisacodyl 5 mg Q12HP PRN PO 01/18/24 11:30 01/20/24 13:21 5 MG Enoxaparin Sodium 30 mg Q12HR SC 01/18/24 22:00 01/22/24 09:08 30 MG Acetaminophen/ Hydrocodone Bitart 1 tab Q6HPRN PRN PO 01/18/24 14:45 01/22/24 09:09 1 TAB Hydralazine HCl 10 mg Q6HP PRN IV 01/18/24 16:00 01/20/24 01:23 10 MG Amlodipine Besylate 5 mg DAILY PO 01/20/24 12:00 01/22/24 09:08 5 MG Losartan Potassium 50 mg HS PO 01/20/24 22:00 01/21/24 22:00 50 MG Laboratory Results Laboratory Tests 01/20/24 07:10 01/21/24 05:00 Urinalysis Test 01/16/24 10:53 Urine Color Yellow (Yellow) Urine Clarity Clear (Clear) Urine pH 6.0 (5.0-9.0) Urine Specific [place] 1.024 (1.001-1.035) Urine Protein Trace (Negative) H Urine Ketones Negative (Negative) Urine Blood Negative /uL (Negative) Urine Nitrite Negative (Negative) Urine Bilirubin Negative (Negative) Urine Urobilinogen Normal mg/dL (Negative) Urine Leukocyte Esterase Negative /uL (Negative) Urine RBC 1 /hpf (0 - 3) Urine WBC 1 /hpf (0 - 3) Urine Squamous Epithelial Cells Few /hpf (<5) Urine Bacteria None seen /hpf (None Seen) Urine Mucus Few (None Seen) Urine Glucose Normal mg/dL (Normal) Labs and/or images reviewed: Labs reviewed by me Assessment/Plan Assessment/Plan . 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 Continuing with hypertensive medication. We will put him hydralazine 10 mg IV q.6 hours p.r.n. for systolic greater than 160 her diastolic greater than 100. Continuing IV pain medication. Explained to the patient and his daughter that his insurance did not cover [place]. Per daughter his is very petite and unable to help patient at home. Discharge planning to retirement home facility. Plan discussed with: Patient, Daughter My Orders Orders - SANDY OSEI MD Procedure Category Date Status Time Dietary NOTICE 01/21/24 Transmitted Recommendations 15:59 Date of Service: Jan 22, 2024 Billing Provider: SANDY OSEI MD Common Visit Codes: [id number] INP/OBS CARE(HIGH) SANDY OSEI MD Jan 22, 2024 13:02
[2024-01-22] MEDS: MELATONIN 5 MG TAB PO ONE (21:01)
[2024-01-23 05:00] VITALS: BP 127/72; PULSE 63; RESP 17; TEMP 98.1; O2SAT 96
[2024-01-23 08:00] VITALS: PULSE 66; RESP 17; O2SAT 97
[2024-01-23 09:00] VITALS: BP 171/90; PULSE 66; RESP 17; TEMP 97.8; O2SAT 97
[2024-01-23 13:00] VITALS: BP 119/86; PULSE 82; RESP 18; TEMP 97.5; O2SAT 95
--- NOTE | 2024-01-23 14:35 | DVHDS2 ---
Discharge Summary Date of Admission Jan 18, 2024 at 09:56 Date of Discharge: Jan 23, 2024 Admitting Diagnosis Left hip OA endstage Labs/Diagnostic Data: Laboratory Results Test 01/21/24 05:00 01/20/24 07:10 01/19/24 05:53 01/16/24 10:53 Hemoglobin 12.1 g/dL (13.5-17.5) Hematocrit 35.2 % (41.0-53.0) White Blood Count 9.0 10^3/uL (4.4-10.8) Red Blood Count 3.96 10^6/uL (4.5-5.90) Mean Corpuscular Volume 92.7 fL (80.0-100.0) Mean Corpuscular Hemoglobin 31.7 pg (28.0-32.0) Mean Corpuscular Hemoglobin Concent 34.2 g/dL (32.0-36.0) Red Cell Distribution Width 13.5 % (11.8-14.3) Platelet Count 190 10^3/uL (140-450) Mean Platelet Volume 7.8 fL (6.9-10.8) Neutrophils (%) (Auto) 74.9 % (37.0-80.0) Lymphocytes (%) (Auto) 14.1 % (10.0-50.0) Monocytes (%) (Auto) 9.1 % (0.0-12.0) Eosinophils (%) (Auto) 1.6 % (0.0-7.0) Basophils (%) (Auto) 0.3 % (0.0-2.0) Neutrophils # (Auto) 6.7 10 ^3/uL (1.6-8.6) Lymphocytes # (Auto) 1.3 10 ^3/uL (0.4-5.4) Monocytes # (Auto) 0.8 10 ^3/uL (0-1.3) Eosinophils # (Auto) 0.1 10 ^3/uL (0-0.8) Basophils # (Auto) 0 10 ^3/uL (0-0.2) Nucleated Red Blood Cells 0.1 % Sodium Level 138 mmol/L (136-145) Potassium Level 3.8 mmol/L (3.5-5.1) Chloride Level 108 mmol/L (98-107) Carbon Dioxide Level 25 mmol/L (20-31) Anion Gap 5 (5-15) Blood Urea Nitrogen 17 mg/dL (9-23) Creatinine 0.84 mg/dL (0.700-1.30) Glomerular Filtration Rate Calc 87 mL/min (>90) BUN/Creatinine Ratio 20.2 (10.0-20.0) Serum Glucose 118 mg/dL (74-106) Calcium Level 9.7 mg/dL (8.7-10.4) Total Bilirubin 0.4 mg/dL (0.2-1.0) Aspartate Amino Transferase (AST) 21 U/L (13-40) Alanine Aminotransferase (ALT) 12 U/L (7-40) Alkaline Phosphatase 77 U/L (46-116) Total Protein 5.3 g/dL (5.7-8.2) Albumin 3.3 g/dL (3.2-4.8) Prothrombin Time 11.5 sec (9.3-11.8) Prothrombin Time INR 1.09 (0.9-1.15) Activated Partial Thromboplast Time 28.4 SEC (24.5-34.5) Urine Color Yellow (Yellow) Urine Clarity Clear (Clear) Urine pH 6.0 (5.0-9.0) Urine Specific [place] 1.024 (1.001-1.035) Urine Protein Trace (Negative) Urine Ketones Negative (Negative) Urine Blood Negative /uL (Negative) Urine Nitrite Negative (Negative) Urine Bilirubin Negative (Negative) Urine Urobilinogen Normal mg/dL (Negative) Urine Leukocyte Esterase Negative /uL (Negative) Urine RBC 1 /hpf (0 - 3) Urine WBC 1 /hpf (0 - 3) Urine Squamous Epithelial Cells Few /hpf (<5) Urine Bacteria None seen /hpf (None Seen) Urine Mucus Few (None Seen) Urine Glucose Normal mg/dL (Normal) Other Laboratory Tests 01/21/24 05:00 01/20/24 07:10 Brief Hx & Hospital Course: Patient is a 83 year-old M s/p Left Hip Replacement. Tolerated the procedure well, will be discharged to SNF. I spoke with the patients son, updated on plan of care. Operations or Procedures Report Details Date: 01/18/24 Preop Diagnosis: Left hip OA endstage Postop Diagnosis: same Surgeon: Sergio Lanza MD Provider Relations Coordinator: none Anesthesiologist: Dr Valdez Anesthesia: Regional Drains: none Implant: summit stem , , 46 acetabular cut, one acetabular acrew, standard liner Consent: The patient was informed of the risks and benefits of the procedure. These include but are not limited to complications of anesthesia, postoperative infection, incomplete relief of symptoms, recurrence of symptoms, damage to blood vessels, nerves and tendons, deep venous thrombosis, pulmonary embolism and possible need for repeat surgery in the future. Complications: none Estimated Blood Loss: 100 cc Fluids: 1 l NS Findings: left hip OA end satge Indications for Surgery: Left hip OA end stage non - responseive to conservative care Name of Procedure Performed Left LISA Condition at Discharge: Poor Final Diagnosis/Problems List Left hip OA endstage Discharge Disposition: Home Discharge Instruct/Medications Diet: Regular Activity: Light activity Follow Up/Referral: [facility] Medications: see [facility] Discharge Statement: "Patient was advised to return to the ER or call 911 if any headaches, dizziness, shortness of breath, chest pain, abdominal pain, bleeding, fevers, or worsening of medical condition. Patient was counseled about treatment plan, medications, possible side effects, patientverbalized understanding. All questions were answered to the best of my ability. This discharge took greater then 30 minutes in planning, reviewing documentation, counseling the patient, and discussing with other team members." ASSESSMENT ASSESSMENT Assessment same Date of Service: Jan 23, 2024 Billing Provider: DORIAN KABA MD Common Visit Codes: [id number] DISCH DAY >30min DORIAN KABA MD Jan 23, 2024 14:35
[2024-01-23 15:37] LABS: Basophils # (auto) 0 10 ^3/uL (0-0.2); Basophils % (auto) 0.3 % (0.0-2.0); Eosinophils # (auto) 0.2 10 ^3/uL (0-0.8); Eosinophils % (auto) 3.2 % (0.0-7.0); Hemoglobin 13.3 g/dL (13.5-17.5); Lymphocytes % (auto) 15.7 % (10.0-50.0); Mean Corpuscular Hemoglobin 31.1 pg (28.0-32.0); Mean Corpuscular Volume 91.5 fL (80.0-100.0); Monocytes # (auto) 0.5 10 ^3/uL (0-1.3); Monocytes % (auto) 8.4 % (0.0-12.0); Neutrophils # (auto) 4.4 10 ^3/uL (1.6-8.6); Neutrophils % (auto) 72.4 % (37.0-80.0); Platelet Count (auto) 213 10^3/uL (140-450); Red Blood Cells 4.26 10^6/uL (4.5-5.90); White Blood Cell 6.1 10^3/uL (4.4-10.8)
[2024-01-23 15:50] LABS: Sodium 139 mmol/L (136-145)
[2024-01-23 15:51] LABS: Anion Gap 5 (5-15); Carbon Dioxide 26 mmol/L (20-31)
[2024-01-23 15:52] LABS: Calcium 9.6 mg/dL (8.7-10.4)
[2024-01-23 15:57] LABS: BUN/Creatinine Ratio 22.7 (10.0-20.0); Blood Urea Nitrogen 20 mg/dL (9-23)
[2024-01-23 16:01] LABS: Chloride 108 mmol/L (98-107); Glucose 118 mg/dL (74-106)
== END 2024-01-23 17:05 | DRG 470 ==
LOC: SUR 06:27 → OVERFLOW 09:56 → WEST WING 11:25
PROVIDERS: ADMIT Orthopaedic Surgery; ATTEND Internal Medicine
PROC: 0SRB0JZ Replacement of Left Hip Joint with Synthetic Substitute, Open Approach (ICD-10-PCS; principal; 2024-01-18 07:26)
DX: M16.12 Unilateral primary osteoarthritis, left hip (principal); E66.9 Obesity, unspecified; E78.5 Hyperlipidemia, unspecified; I10 Essential (primary) hypertension; R10.32 Left lower quadrant pain; Z79.82 Long term (current) use of aspirin; Z79.899 Other long term (current) drug therapy; Z68.30 Body mass index [BMI] 30.0-30.9, adult
CPT/HCPCS: 36415; 72170; 80048; 80053; 81001; 82306; 83036; 85014; 85018; 85025; 85610; 85730; 86850; 86900; 86901; 97110; 97116; 97163; 97530; G0378; J0131; J0171; J1100; J1885; J2405; J2704; J3490

== ENCOUNTER → 2024-04-02 | Outpatient (CLI) | payer MEDICAID ==
[2024-04-02 09:09] LABS: Urine Bacteria None Seen /hpf (None Seen)
[2024-04-02 09:34] LABS: Urine Blood Negative /uL (Negative); Urine Clarity Clear (Clear); Urine Color Light-Yellow (Yellow); Urine Protein, UAD Negative (Negative); Urine Specific Gravity 1.018 (1.001-1.035); Urine Squamous Epithelial Cell FEW /hpf (<5); Urine Urobilinogen Normal (Negative); Urine WBC < 1 /HPF (0-3)
[2024-04-02 09:35] LABS: Basophils # (auto) 0 10 ^3/uL (0-0.2); Basophils % (auto) 0.6 % (0.0-2.0); Eosinophils # (auto) 0.1 10 ^3/uL (0-0.8); Eosinophils % (auto) 1.8 % (0.0-7.0); Hematocrit 43.8 % (41.0-53.0); Hemoglobin 14.7 g/dL (13.5-17.5); Lymphocytes # (auto) 1.1 10 ^3/uL (0.4-5.4); Lymphocytes % (auto) 27.9 % (10.0-50.0); Mean Corpuscular Hemoglobin 30.5 pg (28.0-32.0); Mean Corpuscular Hgb Conc. 33.5 g/dL (32.0-36.0); Mean Corpuscular Volume 90.9 fL (80.0-100.0); Monocytes # (auto) 0.4 10 ^3/uL (0-1.3); Monocytes % (auto) 8.7 % (0.0-12.0); Neutrophils # (auto) 2.5 10 ^3/uL (1.6-8.6); Nucleated Red Blood Cells % 0.1 %; Platelet Count (auto) 242 10^3/uL (140-450); Red Blood Cells 4.82 10^6/uL (4.5-5.90); Red Cell Distribution Width 13.3 % (11.8-14.3); White Blood Cell 4.1 10^3/uL (4.4-10.8)
[2024-04-02 09:43] LABS: Alanine Aminotransferase 25 U/L (7-40); Alkaline Phosphatase 88 U/L (46-116); Anion Gap 9 (5-15); BUN/Creatinine Ratio 18.3 (10.0-20.0); Blood Urea Nitrogen 19 mg/dL (9-23); Carbon Dioxide 24 mmol/L (20-31); Chloride 106 mmol/L (98-107); Potassium 4.3 mmol/L (3.5-5.1); Sodium 139 mmol/L (136-145); Triglycerides 98 mg/dL (< 150)
[2024-04-02 09:45] LABS: Albumin 4.4 g/dL (3.2-4.8); Aspartate Aminotransferase 16 U/L (13-40); Bilirubin, Total 0.6 mg/dL (0.2-1.0); HDL Cholesterol 52 mg/dL (40-59); Total Protein 6.8 g/dL (5.7-8.2)
[2024-04-02 09:50] LABS: Cholesterol 282 mg/dL (< 200); Glucose 119 mg/dL (74-106); LDL Cholesterol 225 mg/dL (< 100)
== END | disposition home or self-care (01) ==
LOC: LAB 08:49
PROVIDERS: ATTEND Internal Medicine
DX: I13.10 Hypertensive heart and chronic kidney disease without heart failure, with stage 1 through stage 4 chronic kidney disease, or unspecified chronic kidney disease (principal); N18.9 Chronic kidney disease, unspecified; E78.5 Hyperlipidemia, unspecified
CPT/HCPCS: 36415; 80053; 80061; 81001; 83036; 84439; 84443; 85025

== ENCOUNTER → 2024-04-19 | Outpatient (CLI) | payer MEDICAID ==
[2024-04-19 18:11] LABS: Chloride 103 mmol/L (98-107); Potassium 4.3 mmol/L (3.5-5.1); Sodium 138 mmol/L (136-145)
[2024-04-19 18:12] LABS: Anion Gap 6 (5-15); Carbon Dioxide 29 mmol/L (20-31)
[2024-04-19 18:17] LABS: BUN/Creatinine Ratio 11.6 (10.0-20.0); Blood Urea Nitrogen 10 mg/dL (9-23); Calcium 10.7 mg/dL (8.7-10.4); Glucose 108 mg/dL (74-106)
== END | disposition home or self-care (01) ==
LOC: LAB 15:50
PROVIDERS: ATTEND Internal Medicine
DX: I12.9 Hypertensive chronic kidney disease with stage 1 through stage 4 chronic kidney disease, or unspecified chronic kidney disease (principal); N18.9 Chronic kidney disease, unspecified
CPT/HCPCS: 36415; 80048

== ENCOUNTER 2024-08-09 04:16 | Inpatient (IN) | payer MEDICAID ==
[~2024-08-09] VITALS: Ht 177.8 cm; Wt 104.2 kg
[2024-08-09] VITALS (14 sets, daily range): BP systolic 111–168; BP diastolic 68–93; PULSE 60–86; RESP 16–20; TEMP 97.8–98; O2SAT 95–97
--- NOTE | 2024-08-09 05:26 | ED.PDOC ---
HPI Comments 83 year old male presents to the ED with a chief complaint of chest pain onset today (08/09/24). Patient states he was asleep, woke up due to chest pain, non- radiating. For the past few days, he has been experiencing bilateral lower extremity swelling. Currently on Plavix. states patient recently saw Social Services Director, had negative workup. PMHx HTN, HLD, CO. Denies shortness of breath, nausea, vomiting, diarrhea, headache, dizziness, numbness/tingling. No other symptoms or modifying factors present at this time. Chief Complaint: Chest Pain Time Seen by MD: 05:10 Primary Care Provider: NEGRA Eastman Notes: Medications, Allergies Allergies: Coded Allergies: NO KNOWN ALLERGIES (Unverified , 09/15/22) Home Meds Reported Medications Atorvastatin Calcium (Lipitor) 40 Mg Tab, 40 MG PO DAILY, TAB 01/16/24 Losartan Potassium (Losartan Potassium) 50 Mg Tab, 50 MG PO QPM, TAB 01/16/24 Amlodipine Besylate (Amlodipine Besylate) 5 Mg Tab, 5 MG PO DAILY, TAB 01/16/24 Aspirin (Aspir-81) 81 Mg Tab, 81 MG PO DAILY, TAB 01/16/24 Information Source: Patient, Spouse Mode of Arrival: Wheelchair Severity: Moderate Timing: Hours Duration: Since onset Prehospital treatment: None Location: Chest (L) Radiation: No Radiation Quality: Sharp Onset: While Asleep Cardiac Risk Factors: Hyperlipidemia, HTN PE Risk Factors: None History of: CO Modifying Factors: Nothing Past Medical History PAST MEDICAL HISTORY: High Lipids, HTN, CO Surgical History: PTCA Family History Family History: No family hx of Cancer, No family hx of DM, No family hx of Heart yulissa Social History Smoker: Non-Smoker Alcohol: Occasionally Drugs: Denies Drug Use Lives In: Home Constitutional: denies: chills, diaphoresis, fatigue, fever, malaise, sweats, weakness, others EENTM: denies: blurred vision, double vision, ear bleeding, ear discharge, ear drainage, ear pain, ear ringing, eye pain, eye redness, hearing loss, mouth pain, mouth swelling, nasal discharge, nose bleeding, nose congestion, nose pain, photophobia, tearing, throat pain, throat swelling, voice changes, others Respiratory: denies: cough, hemoptysis, orthopnea, SOB at rest, shortness of breath, SOB with excertion, stridor, wheezing, others Cardiovascular: reports: chest pain; denies: dizzy spells, diaphoresis, Dyspnea on exertion, edema, irregular heart beat, left arm pain, lightheadedness, palpitations, PND, syncope, others Gastrointestinal: denies: abdomen distended, abdominal pain, blood streaked bowels, constipated, diarrhea, dysphagia, difficulty swallowing, hematemesis, melena, nausea, poor appetite, poor fluid intake, rectal bleeding, rectal pain, vomiting, others Genitourinary: denies: burning, dysuria, flank pain, frequency, hematuria, in continence, penile discharge, penile sore, pain, testicle pain, testicle swelling, urgency, others Neurological: denies: dizziness, fainting, headache, left sided numbness, left sided weakness, numbness, paresthesia, pre-existing deficit, right sided numbness, right sided weakness, seizure, speech problems, tingling, tremors, weakness, others Musculoskeletal: reports: others (BLE edema); denies: back pain, gout, joint pain, joint swelling, muscle pain, muscle stiffness, neck pain Integumetry: denies: bruises, change in color, change in hair/nails, dryness, laceration, lesions, lumps, rash, wounds, others Allergic/Immunocompromised: denies: Difficulty Healing, Frequent Infections, Hives, Itching, others Hematologic/Lymphatic: denies: anemia, blood clots, easy bleeding, easy bruising, swollen glands, others Endocrine: denies: excessive hunger, excessive sweating, excessive thirst, excessive urination, flushing, intolerance to cold, intolerance to heat, unexplained weight gain, unexplained weight loss, others Psychiatric: denies: anxiety, bipolar disorder, depression, hopeless, panic disorder, schizophrenia, sleepless, suicidal, others All Other Systems: Reviewed and Negative Physical Exam General Appearance: Normal HEENT: Normal ENT Inspection, Pharynx Normal, TMs Normal Neck: Full Range of Motion, Non-Tender, Normal, Normal Inspection Respiratory: Chest Non-Tender, Lungs Clear, No Accessory Muscle Use, No Respiratory Distress, Normal Breath Sounds Cardiovascular: No Edema, No JVD, No Murmur, No Gallop, Normal Peripheral Pulses, Regular Rate/Rhythm Breast Exam: Deferred Gastrointestinal: No Organomegaly, Non Tender, No Pulsatile Mass, Normal Bowel Sounds, Soft Genitalia: Deferred Pelvic: Deferred Rectal: Deferred Extremities: Leg edema (2+ pitting), Normal capillary refill Musculoskeletal : Apperance: Normal Neurologic: Alert, crossbar switch adjuster II-XII nml as Tested, No Motor Deficits, Normal Affect, Normal Mood, No Sensory Deficits Cerebellar Function: Normal Reflexes: Normal Skin: Dry, Normal Color, Warm Lymphatic: No Adenopathy Was a procedure done? Was a procedure done?: No CP Differential Dx Differential Diagnosis: MAT, CO, PAC's Differential Diagnosis: HTN Essential, HTN Accelerated Differential Diagnosis: Gastritis, Myocardial Infarction, Pericarditis X-Ray, Labs, Meds, VS Vital Signs Date Time Temp Pulse Resp B/P (MAP) Pulse Ox O2 Delivery O2 Flow Rate FiO2 08/09/24 05:26 51 08/09/24 04:51 Room Air* 0 21 08/09/24 04:36 97.4 74 15 179/98 (125) 94 97.4 08/09/24 04:35 97.9 73 18 191/105 (133) 97 97.9 08/09/24 04:20 74 Lab Test 08/09/24 05:24 08/09/24 04:23 Range/Units Troponin I High Sensitivity Pending 133 *H </=54 ng/L White Blood Count 5.0 4.4-10.8 10^3/uL Red Blood Count 4.83 4.5-5.90 10^6/uL Hemoglobin 15.1 13.5-17.5 g/dL Hematocrit 44.2 41.0-53.0 % Mean Corpuscular Volume 91.5 80.0-100.0 fL Mean Corpuscular Hemoglobin 31.3 28.0-32.0 pg Mean Corpuscular Hemoglobin Concent 34.2 32.0-36.0 g/dL Red Cell Distribution Width 13.6 11.8-14.3 % Platelet Count 194 140-450 10^3/uL Mean Platelet Volume 8.1 6.9-10.8 fL Neutrophils (%) (Auto) 66.1 37.0-80.0 % Lymphocytes (%) (Auto) 23.4 10.0-50.0 % Monocytes (%) (Auto) 7.1 0.0-12.0 % Eosinophils (%) (Auto) 2.8 0.0-7.0 % Basophils (%) (Auto) 0.6 0.0-2.0 % Neutrophils # (Auto) 3.3 1.6-8.6 10 ^3/uL Lymphocytes # (Auto) 1.2 0.4-5.4 10 ^3/uL Monocytes # (Auto) 0.4 0-1.3 10 ^3/uL Eosinophils # (Auto) 0.1 0-0.8 10 ^3/uL Basophils # (Auto) 0 0-0.2 10 ^3/uL Nucleated Red Blood Cells 0.0 % Sodium Level 139 136-145 mmol/L Potassium Level 3.9 3.5-5.1 mmol/L Chloride Level 108 H 98-107 mmol/L Carbon Dioxide Level 22 20-31 mmol/L Anion Gap 9 5-15 Blood Urea Nitrogen Pending Creatinine Pending Glomerular Filtration Rate Calc Pending BUN/Creatinine Ratio Pending Serum Glucose Pending Calcium Level 9.9 8.7-10.4 mg/dL Time of 1ST Reevaluation: 05:40 Reevaluation 1ST: Unchanged Patient Education/Counseling: Diagnosis, Treatment, Prognosis Family Education/Counseling: Diagnosis, Treatment, Prognosis SEPSIS Sepsis Screen Date sepsis recognized/suspect: Aug 09, 2024 Time Sepsis recognized/suspect: 417 Recent Procedure: No On Antibiotic Therapy: No Respiratory Rate >20: No Heart Rate >90: No Temp<36 C (96.8 F) or >38.3 C: No SBP <90 or MAP <65 mmHG: No New Acute Mental Status Change: No Is the patient on CPAP, BIPAP,: No Physician Orders Electrocardigram (08/09/24 04:19) Troponin-I Hs (08/09/24 05:19) Troponin-I Hs (08/09/24 07:19) Electrocardigram (08/09/24 05:19) Electrocardigram (08/09/24 07:19) Basic Metabolic Panel (08/09/24 05:07) Chest Portable (08/09/24 05:07) Vital Signs Date Time Temp Pulse Resp B/P (MAP) Pulse Ox O2 Delivery O2 Flow Rate FiO2 08/09/24 05:26 51 08/09/24 04:51 Room Air* 0 21 08/09/24 04:36 97.4 74 15 179/98 (125) 94 97.4 08/09/24 04:35 97.9 73 18 191/105 (133) 97 97.9 08/09/24 04:20 74 Laboratory Tests Test 08/09/24 04:23 White Blood Count 5.0 10^3/uL (4.4-10.8) Departure 1 Departure Time of Disposition: 05:41 (Patient presented with chest pain that was concerning for possible STEMI, ACS, PE, Pneumonia, Muscle Strain, COPD, Dissection. Data: 1. I ordered and reviewed the result of at least 3 labs including a CBC, BMP, and Troponin. 2. I independently interpreted the following tests: EKG which shows _ sinus arrhythmia and Chest X-ray which shows benign chest _.Risk:This patient has a high risk of morbidity due to further diagnostic testing or treatment and may suffer from an acute cardiac or respiratory disorder. Workup reveals concern for ACS and patient should be admitted for further workup and possible expert consultation. ) Impression: Primary Impression: Acute chest pain Additional Impression: Lower extremity edema Disposition: ADMITTED INPATIENT Admit to: Med Surg Condition: Serious Critical Care Note Critical Care Time?: Yes Critical care comment: Acute chest pain Authorized and Performed by: Magan Castillo MD Total critical care time: Approximately 42 minutes Due to a high probability of clinically significant, life threatening deterioration, the patient required my highest level of preparedness to intervene emergently and I personally spent this critical care time directly and personally managing the patient. This critical care time included obtaining a history; examining the patient; pulse oximetry; ordering and review of studies; arranging urgent treatment with development of a management plan; evaluation of patient's response to treatment; frequent reassessment; and, discussions with other providers. This critical care time was performed to assess and manage the high probability of imminent, life-threatening deterioration that could result in multi-organ failure. It was exclusive of separately billable procedures and treating other patients and teaching time. Please see my other sections and the rest of the note for further information on patient assessment and treatment. Stability Stability form required: No Heart Score Heart Score: Heart Score Response (Comments) Value History Moderate Suspicious 1 EKG Repolarization Disturb 1 Age >65 2 Risk Factors >3 or Hx ASHD 2 Troponin >3 x's Normal limit 2 Total 8 I personally scribed for MAGAN CASTILLO MD ([email or web address]) on 08/09/24 at 05:26. Electronically submitted by Virginie Berger ([email or web address]). MAGAN CASTILLO MD Aug 09, 2024 05:26
[2024-08-09 05:28] LABS: Hematocrit 44.2 % (41.0-53.0); Hemoglobin 15.1 g/dL (13.5-17.5); Mean Corpuscular Hemoglobin 31.3 pg (28.0-32.0); Mean Corpuscular Volume 91.5 fL (80.0-100.0); Nucleated Red Blood Cells % 0.0 %
[2024-08-09 05:37] LABS: Potassium 3.9 mmol/L (3.5-5.1); Sodium 139 mmol/L (136-145)
[2024-08-09 05:38] LABS: Anion Gap 9 (5-15); Calcium 9.9 mg/dL (8.7-10.4); Carbon Dioxide 22 mmol/L (20-31)
--- NOTE | 2024-08-09 05:38 | DVH ---
CHEST RADIOGRAPH Indication: chest pain Technique: Single frontal view of the chest was obtained COMPARISON: XY CHEST PORTABLE on DOS: 09/15/22 FINDINGS: Lines and Tubes: None Lungs: Increased interstitial prominence Pleura: No effusion. No pneumothorax. Cardiomediastinal contours: Unremarkable Bones: Unremarkable IMPRESSION: Viral pneumonia or pulmonary vascular congestion
[2024-08-09 05:40] LABS: Chloride 108 mmol/L (98-107)
[2024-08-09 05:43] LABS: BUN/Creatinine Ratio 16.7 (10.0-20.0); Blood Urea Nitrogen 17 mg/dL (9-23)
--- NOTE | 2024-08-09 05:50 | ECG ---
[facility] Test Date: 2024-08-09 Test Time: 04:20:52 Pat Name: NICOLETTE GUADALUPE Department: ER Room: 0247T Gender: M Financial Analyst Accountant: MICHAEL : 1940 Requested By: MAGAN CASTILLO Order Number: [id number] Reading MD: Joaquin Moncada Measurements Intervals [place] Rate: 74 P: 49 [place]: 172 QRS: 19 QRSD: 119 T: 65 QT: 414 QTc: 460 Interpretive Statements Sinus rhythm Ventricular premature complex LVH with IVCD and secondary repol abnrm Lateral infarct, old Electronically Signed On 08-10-2024 10:30:22 PDT by Joaquin Moncada Please click the below link to view image of tracing.
--- NOTE | 2024-08-09 05:54 | ECG ---
[facility] Test Date: 2024-08-09 Test Time: 05:26:01 Pat Name: NICOLETTE GUADALUPE Department: ED Room: 0247T Gender: M Dry Cleaner Hand: SAMANTHA : 1940 Requested By: MAGAN CASTILLO Order Number: [id number] Reading MD: Joaquin Moncada Measurements Intervals [place] Rate: 51 P: 25 TN: 163 QRS: 40 QRSD: 114 T: 86 QT: 480 QTc: 443 Interpretive Statements Sinus rhythm Probable lateral infarct, old Baseline wander in lead(s) V5 Electronically Signed On 08-10-2024 10:31:08 PDT by Joaquin Moncada Please click the below link to view image of tracing.
[2024-08-09 06:06] LABS: Glucose 126 mg/dL (74-106)
[2024-08-09] MEDS: FUROSEMIDE 40 MG/4 ML VIAL IV ONE (06:30)
[2024-08-09] MEDS: ASPirin-EC 325mg tab PO ONE (06:30)
[2024-08-09] MEDS: NITROGLYCERIN 0.4 MG SL TAB SL ONE (06:46)
--- NOTE | 2024-08-09 07:10 | ECG ---
[facility] Test Date: 2024-08-09 Test Time: 06:32:18 Pat Name: NICOLETTE GUADALUPE Department: ED Room: Gender: M Director Of Field Sales: MISTY : 1940 Requested By: MAGAN CASTILLO Order Number: [id number] Reading MD: Measurements Intervals [place] Rate: 50 P: 63 FL: 159 QRS: 48 QRSD: 111 T: 80 QT: 490 QTc: 447 Interpretive Statements Sinus rhythm Probable lateral infarct, old Please click the below link to view image of tracing.
[2024-08-09 07:20] LABS: INR 1.03 (0.9-1.15); Prothrombin Time 10.9 sec (9.3-11.8)
--- NOTE | 2024-08-09 08:11 | DVHINCON2 ---
LYNDA CARLISLE [facility] 08/09/24 0811: Date Seen: Aug 09, 2024 Referring Physician TERENCE Rajput Reason for Consultation Elevated troponin History of Present Illness This is an 83-year-old male patient who presents to emergency room with chief complaint of chest pain. The patient reports that the chest pain began at approximately 3:00 a.m. this morning while he was asleep. He describes the pain as unprovoked, constant, pressure-like in nature, midsternal and nonradiating. He denies any associated symptoms. The patient reports waiting approximately 1 hour before deciding to come to the emergency room. Initial twelve lead electrocardiogram reveals sinus rhythm with PVCs and lateral Q-waves. Initial troponin level of 133ng/L with significant up trend and current peak level at 4402ng/L. Significant past medical history includes coronary artery disease status post multiple PTCA's x 7 TRELL (on ASA and Plavix), myocardial infarction, hypertension, dyslipidemia, hepatitis-C, and obesity. The patient states he does not follow up with a industrial manufacturing technician in the outpatient setting and is being managed by his primary PCP Dr. Pugh. Past Medical History Past medical history reviewed. No other significant than mentioned above. Past Surgical History Multiple PTCAs Left LISA Family History: Patient reports no known family medical history. Family History Family history reviewed. Social History Patient has a five pack-year history, quit smoking approximately 15 years ago denies any illicit drug use, denies any alcohol use Allergies: Coded Allergies: NO KNOWN ALLERGIES (Unverified , 09/15/22) Home Meds Reported Medications Ergocalciferol (Vitamin D) 50,000 Unit Cap, 1 CAP PO QWEEKLY 08/09/24 Atorvastatin Calcium (Lipitor) 40 Mg Tab, 40 MG PO DAILY, TAB 01/16/24 Losartan Potassium (Losartan Potassium) 50 Mg Tab, 50 MG PO QPM, TAB 01/16/24 Amlodipine Besylate (Amlodipine Besylate) 5 Mg Tab, 5 MG PO DAILY, TAB 01/16/24 Aspirin (Aspir-81) 81 Mg Tab, 81 MG PO DAILY, TAB 01/16/24 Home Meds Home medications reviewed. Current Medications Current Medications Medications (Trade) Dose Ordered Sig/Gisele Route PRN Reason Start Time Stop Time Status Last Admin Sodium Chloride (Saline Lock Ns) 10 ml Q8HR IV 08/09/24 14:00 Heparin Sodium/ Dextrose 250 ml @ 0 mls/hr Q0M IV 08/09/24 06:30 UNV Review of Systems Constitutional: No symptom reported Ears, Nose, & Throat: No symptom reported Eyes: No symptom reported Neurological: No symptoms reported Pulmonary/Respiratory: No symptoms reported Cardiovascular: Chest pain Gastrointestinal: No symptom reported Genitourinary: No symptom reported Musculoskeletal: No symptom reported Skin: No symptom reported Psychiatric: No symptom reported Endocrine: No symptom reported Hematologic/Lymphatic: No symptom reported Vital Signs Vital Signs Date Time Temp Pulse Resp B/P (MAP) Pulse Ox O2 Delivery O2 Flow Rate FiO2 08/09/24 07:36 97.6 60 20 179/89 (119) 95 97.6 08/09/24 07:36 Room Air* 0 21 Physical Exam General Appearance: Cooperative. Obese Pulmonary/Respiratory: Clear, bilateral breaths sounds. Cardiovascular/Chest: Regular rate and rhythm. Peripheral Pulses: 2+ Radial (R). 2+ Radial (L). 2+ Pedal (R). 2+ Pedal (L) Abdominal Exam: Normal bowel sounds. Ankle Exam: 4+ pitting edema Lower extremities: 4+ pitting edema Neuro/Mental Status: A/OX4, coherent. Thoughts/Psych: Normal thought pattern. Appropriate mood and affect. Good judgment and insight. Appearance: No acute distress. Skin Exam: Normal inspection. Normal color. Warm and dry. Labs/Diagnostic Data Labs Test 08/09/24 07:29 08/09/24 04:23 Range/Units Troponin I High Sensitivity 4402 *H </=54 ng/L White Blood Count 5.0 4.4-10.8 10^3/uL Red Blood Count 4.83 4.5-5.90 10^6/uL Hemoglobin 15.1 13.5-17.5 g/dL Hematocrit 44.2 41.0-53.0 % Mean Corpuscular Volume 91.5 80.0-100.0 fL Mean Corpuscular Hemoglobin 31.3 28.0-32.0 pg Mean Corpuscular Hemoglobin Concent 34.2 32.0-36.0 g/dL Red Cell Distribution Width 13.6 11.8-14.3 % Platelet Count 194 140-450 10^3/uL Mean Platelet Volume 8.1 6.9-10.8 fL Neutrophils (%) (Auto) 66.1 37.0-80.0 % Lymphocytes (%) (Auto) 23.4 10.0-50.0 % Monocytes (%) (Auto) 7.1 0.0-12.0 % Eosinophils (%) (Auto) 2.8 0.0-7.0 % Basophils (%) (Auto) 0.6 0.0-2.0 % Neutrophils # (Auto) 3.3 1.6-8.6 10 ^3/uL Lymphocytes # (Auto) 1.2 0.4-5.4 10 ^3/uL Monocytes # (Auto) 0.4 0-1.3 10 ^3/uL Eosinophils # (Auto) 0.1 0-0.8 10 ^3/uL Basophils # (Auto) 0 0-0.2 10 ^3/uL Nucleated Red Blood Cells 0.0 % Sodium Level 139 136-145 mmol/L Potassium Level 3.9 3.5-5.1 mmol/L Chloride Level 108 H 98-107 mmol/L Carbon Dioxide Level 22 20-31 mmol/L Anion Gap 9 5-15 Blood Urea Nitrogen 17 9-23 mg/dL Creatinine 1.02 0.700-1.30 mg/dL Glomerular Filtration Rate Calc 73 >90 mL/min BUN/Creatinine Ratio 16.7 10.0-20.0 Serum Glucose 126 H 74-106 mg/dL Calcium Level 9.9 8.7-10.4 mg/dL Assessment NSTEMI, rule out progressive coronary artery disease Coronary artery disease s/p multiple PTCA's X 7 TRELL (on ASA and Plavix) Hypertensive urgency Rule out structural heart disease History myocardial infarction Dyslipidemia Hepatitis-B History of tobacco use Obesity Plan/Recommendation We will continue with the following plan/recommendations (Dr. Quiroga): * Transthoracic echocardiogram to evaluate cardiac function * Chest pain protocol * ROSIBEL score: 5 points * HEART score: 7 points (high score) * Continue heparin drip per ACS protocol * Blood pressure control * Lipid-lowering agent * Close Cardiac surveillance * Coronary angiogram Case discussed with . Given the patient's clinical presentation, comorbidities, significant elevated troponin level, and significant HEART/ROSIBEL score, the patient may benefit from a coronary angiogram with left heart catheterization.The procedure was discussed with the patient in full detail including risks and benefits. Risks include but are not limited to bleeding, contrast-induced nephropathy, stroke, and even . The patient understands and is agreeable to undergo the procedure. The patient will be taken at soonest availability on 08/09/2024. Thank you for allowing us to care for this patient. Please call with any questions or concerns. Critical care time spent: 44 minutes This medical document was created using an electronic medical record system with voice recognition software and computerized dictation system. Although this document has been carefully reviewed, there might still be some phonetic and typographical errors. Occasional wrong-word or ``sound-alike substitutions may have occurred due to the inherent limitations of voice recognition software. These areas are purely typographical due to imperfections of the software programs and do not reflect any compromise in the patient's medical care. Please read the chart carefully and recognize, using context, where these substitutions have occurred. Plan discussed with: Patient NYHA Physical activity limitations: NA Date of Service: Aug 09, 2024 Billing Provider: LYNDA CARLISLE Cardiology Common Codes: 03021-IFICHGH INP/OBS CARE (High) Cardiology Consultation Codes: 72202-QIKMMQISB CONSULT <45MIN ARRON QUIROGA MD 08/09/24 1826: Family History: Patient reports no known family medical history. Allergies: Coded Allergies: NO KNOWN ALLERGIES (Unverified , 09/15/22) Home Meds Reported Medications Ergocalciferol (Vitamin D) 50,000 Unit Cap, 1 CAP PO QWEEKLY 08/09/24 Atorvastatin Calcium (Lipitor) 40 Mg Tab, 40 MG PO DAILY, TAB 01/16/24 Losartan Potassium (Losartan Potassium) 50 Mg Tab, 50 MG PO QPM, TAB 01/16/24 Amlodipine Besylate (Amlodipine Besylate) 5 Mg Tab, 5 MG PO DAILY, TAB 01/16/24 Aspirin (Aspir-81) 81 Mg Tab, 81 MG PO DAILY, TAB 01/16/24 Plan/Recommendation pt needs urgent Lhc trop 8K hx o 7+ stents\ fu cath and echo heparin gtt 40 mins critical care time spent Plan discussed with: Patient LYNDA CARLISLE Aug 09, 2024 08:11 ARRON QUIROGA MD Aug 09, 2024 18:26
[2024-08-09] MEDS: HEPARIN SODIUM (PORCINE) 5000 UNITS/ML 1ML VIAL IV ONE (08:50)
[2024-08-09 08:52] LABS: Urine Protein, UAD Negative (Negative)
[2024-08-09] MEDS: HEPARIN DRIP/D5W 100UNITS/ML 250 ML IV SCH (08:58)
[2024-08-09 09:07] LABS: Opiate Scree,Urine Neg (NEGATIVE)
[2024-08-09 09:08] LABS: Amphetamine Screen, Urine Neg (NEGATIVE); Barbiturate Scree,Urine Neg (NEGATIVE); Benzodiazephine Screen, Urine Neg (NEGATIVE); Cannabinoid Screen, Urine Neg (NEGATIVE); Cocaine Screen, Urine Neg (NEGATIVE); Phencyclidine Screen, Urine Neg (NEGATIVE)
[2024-08-09 09:15] LABS: INR 1.03 (0.9-1.15); Partial Thromboplastin Time 26.6 SEC (24.5-34.5); Prothrombin Time 10.9 sec (9.3-11.8)
[2024-08-09] MEDS ORDERED: ERGO1CAP12 PO (09:20)
[2024-08-09] MEDS ORDERED: NITROGLYCERIN 0.4 MG SL TAB SL PRN ×2 (09:30)
[2024-08-09] MEDS ORDERED: MORPHINE SULFATE 4 MG/ML SYR/VIAL IV PRN (09:30)
[2024-08-09] MEDS ORDERED: ACETAMINOPHEN 325 MG TAB PO PRN (09:30)
[2024-08-09] MEDS ORDERED: MORPHINE SULFATE INJ 2 MG/ml SYRG IV PRN (09:30)
[2024-08-09] MEDS ORDERED: ONDANSETRON HCL 4 MG/2 ML VIAL IV PRN (09:30)
--- NOTE | 2024-08-09 09:34 | DVHHP2 ---
History of Present Illness Reason for Visit: Chest pain History of Present Illness Serge Zuñiga is an 83-year-old male with past medical history of hypertension, hyperlipidemia, MN, status post PTCA x7 in her community in [place] and [facility] several years ago, and left hip replacement in 2023. He reports his chest pain started at 3:30 a.m. this morning while he was sleeping. Patient states that the current pain is 2.5/10 pressure-like and intermittent. He states that there are no aggravating or relieving factors. 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 He states that he was living in [place], [place], and now in [place]. Patient denies any shortness of breath, recent sick contacts, recent ingestion of spoiled food, recent travels, recent trauma or injury, fever, chills, lightheadedness, weakness, dizziness, abdominal pain, nausea, vomiting, or diarrhea. Patient reports that he went ambulates with a front wheel walker or a cane. He also reports that he is compliant with his medications and is taking Plavix daily. Cardiovascular: HTN, MN, hyperipidemia Past Surgical History: Other (PTCA x7 and left hip replacement in 2023) Family History: None Smoke: No ALCOHOL: occassional Drugs: None Lives: with Family Domestic Violence: Neg Review of Systems Cardiovascular: Chest Pain Allergies: Coded Allergies: NO KNOWN ALLERGIES (Unverified , 09/15/22) Medications Current Medications Medications Dose Ordered Sig/Gisele Route Start Time Stop Time Status Last Admin Dose Admin Sodium Chloride 10 ml Q8HR IV 08/09/24 14:00 Heparin Sodium/ Dextrose 250 ml @ 10 mls/hr Q24H IV 08/09/24 06:30 Hydralazine HCl 10 mg Q6HP PRN IV 08/09/24 08:30 Exam Vital Signs Vital Signs Date Time Temp Pulse Resp B/P (MAP) Pulse Ox O2 Delivery O2 Flow Rate FiO2 08/09/24 08:00 54 08/09/24 07:36 97.6 20 179/89 (119) 95 97.6 08/09/24 07:36 Room Air* 0 21 General Appearance: Alert, Oriented X3, Cooperative, No acute distress HEENT: Atraumatic, PERRLA, EOMI, Mucous membr. moist/pink Respiratory: Normal air movement Cardiovascular: Normal S1, Normal S2 Abdominal: Normal bowel sounds, Soft Extremities: No clubbing, No cyanosis, Normal pulses, Other (Bilateral lower extremity edema noted with no pitting) Skin: No significant lesion Neuro: Normal gait, Normal speech, Strength at 5/5 X4 ext, Normal tone, Sensation intact Psych/Mental Status: Mental status NL, Mood NL Labs/Xrays Labs Test 08/09/24 08:32 08/09/24 07:46 08/09/24 07:29 08/09/24 04:23 Range/Units Prothrombin Time 10.9 9.3-11.8 sec Prothrombin Time INR 1.03 0.9-1.15 Activated Partial Thromboplast Time 26.6 24.5-34.5 SEC Urine Color Colorless Yellow Urine Clarity Clear Clear Urine pH 7.0 5.0-9.0 Urine Specific [place] 1.005 1.001-1.035 Urine Protein Negative Negative Urine Ketones Negative Negative Urine Blood Negative Negative /uL Urine Nitrite Negative Negative Urine Bilirubin Negative Negative Urine Urobilinogen Normal Negative mg/dL Urine Leukocyte Esterase Negative Negative /uL Urine RBC None seen 0 - 3 /hpf Urine Microscopic WBC < 1 0-3 /HPF Urine Squamous Epithelial Cells None seen <5 /hpf Urine Bacteria None seen None Seen /hpf Urine Glucose Normal Normal mg/dL Urine Opiates Screen Neg NEGATIVE Urine Fentanyl Screen Neg NEGATIVE Urine Barbiturates Screen Neg NEGATIVE Urine Phencyclidine Screen Neg NEGATIVE Urine Amphetamines Screen Neg NEGATIVE Urine Benzodiazepines Screen Neg NEGATIVE Urine Cocaine Screen Neg NEGATIVE Urine Cannabinoids Screen Neg NEGATIVE Troponin I High Sensitivity 4402 *H </=54 ng/L White Blood Count 5.0 4.4-10.8 10^3/uL Red Blood Count 4.83 4.5-5.90 10^6/uL Hemoglobin 15.1 13.5-17.5 g/dL Hematocrit 44.2 41.0-53.0 % Mean Corpuscular Volume 91.5 80.0-100.0 fL Mean Corpuscular Hemoglobin 31.3 28.0-32.0 pg Mean Corpuscular Hemoglobin Concent 34.2 32.0-36.0 g/dL Red Cell Distribution Width 13.6 11.8-14.3 % Platelet Count 194 140-450 10^3/uL Mean Platelet Volume 8.1 6.9-10.8 fL Neutrophils (%) (Auto) 66.1 37.0-80.0 % Lymphocytes (%) (Auto) 23.4 10.0-50.0 % Monocytes (%) (Auto) 7.1 0.0-12.0 % Eosinophils (%) (Auto) 2.8 0.0-7.0 % Basophils (%) (Auto) 0.6 0.0-2.0 % Neutrophils # (Auto) 3.3 1.6-8.6 10 ^3/uL Lymphocytes # (Auto) 1.2 0.4-5.4 10 ^3/uL Monocytes # (Auto) 0.4 0-1.3 10 ^3/uL Eosinophils # (Auto) 0.1 0-0.8 10 ^3/uL Basophils # (Auto) 0 0-0.2 10 ^3/uL Nucleated Red Blood Cells 0.0 % D-Dimer, Quantitative 1.46 H 0.0-0.49 mg/L FEU Sodium Level 139 136-145 mmol/L Potassium Level 3.9 3.5-5.1 mmol/L Chloride Level 108 H 98-107 mmol/L Carbon Dioxide Level 22 20-31 mmol/L Anion Gap 9 5-15 Blood Urea Nitrogen 17 9-23 mg/dL Creatinine 1.02 0.700-1.30 mg/dL Glomerular Filtration Rate Calc 73 >90 mL/min BUN/Creatinine Ratio 16.7 10.0-20.0 Serum Glucose 126 H 74-106 mg/dL Calcium Level 9.9 8.7-10.4 mg/dL Thyroid Stimulating Hormone (TSH) 3.29 0.55-4.78 uIU/mL CHEST RADIOGRAPH Indication: chest pain Technique: Single frontal view of the chest was obtained COMPARISON: XY CHEST PORTABLE on DOS: 09/15/22 FINDINGS: Lines and Tubes: None Lungs: Increased interstitial prominence Pleura: No effusion. No pneumothorax. Cardiomediastinal contours: Unremarkable Bones: Unremarkable IMPRESSION: Viral pneumonia or pulmonary vascular congestion Assessment/Plan Assessment/Plan Assessment NSTEMI Possible pneumonia Alcohol use Obesity History of hypertension History of hyperlipidemia History of MN status post PTCA x7 at in her community and [facility] several years ago History of left hip replacement in 2023 Plan Admit to tele Antiemetics Pain management Heparin drip Troponins noted Diuretics BNP ordered Aspirin + statin PT/INR EKG Echo Chest x-ray UA UDS TSH A1c Free T4 Lipid panel D-dimer IV antibiotics-ceftriaxone empirical treatment NPO for now Home medications reconciled DVT prophylaxis-patient on heparin drip PUD prophylaxis-PPIs Discussed plan of care with patient and nurse Cardiology consult - angio planned for 10-11 a.m. today Counseled patient on alcohol cessation Counseled patient on lifestyle modifications, diet, and exercise [id number] Preventive counseling healthy eating habits, physical activity, and regular checkups Plan discussed with: Patient My Orders Orders - CADY ROSS HAT AND CAP DRYING ROOM ATTENDANT Procedure Category Date Status Time Hemoglobin A1c LAB 08/09/24 In Process 07:30 Free T4 (Free LAB 08/09/24 In Process Thyroxine) 07:30 Admit ADMIT 08/09/24 Transmitted 09:16 Code Status CODE 08/09/24 Transmitted 09:16 Vital Signs [facility] 08/09/24 Transmitted 09:16 Collision Center Manager [facility] 08/09/24 Transmitted 09:16 Lipitor 40mg Hs PHA 08/09/24 Transmitted Hi-Intensity 22:00 Morphine Sulfate [facility] 08/09/24 Transmitted Injection 09:30 Acetaminophen Tablet PHA 08/09/24 Transmitted (Tylenol Tablet) 09:30 Complete Blood Count LAB 08/10/24 Verified 04:00 Basic Metabolic Panel LAB 08/10/24 Verified 04:00 Magnesium LAB 08/10/24 Verified 04:00 Lipid Panel LAB 08/10/24 Verified 04:00 Nitroglycerin PHA 08/09/24 Transmitted Sublingual (Ntrostat 09:30 Ondansetron Hcl PHA 08/09/24 Transmitted (Zofran) 09:30 Electrocardigram EKG 08/10/24 Transmitted 04:00 Troponin-I Hs LAB 08/09/24 Transmitted 09:16 Nitroglycerin PHA 08/09/24 Transmitted Sublingual (Ntrostat 09:30 Morphine Sulfate PHA 08/09/24 Transmitted Injection 09:30 Stat Ekg For Chest [facility] 08/09/24 Transmitted Pain 09:16 Notify Of Changes [facility] 08/09/24 Transmitted From Base 09:16 Process Mechanic For [facility] 08/09/24 Transmitted 24 Hours 09:16 Emergency Dysrhythmia [facility] 08/09/24 Transmitted Protocol 09:16 Rhythm Strips Once [facility] 08/09/24 Transmitted Every Shift 09:16 Oxygen By Nasal RT 08/09/24 Verified Cannula 09:16 Ceftriaxone Ivpb PHA 08/09/24 Verified Rocephin 09:30 Date of Service: Aug 09, 2024 Billing Provider: CADY ROSS Common Visit Codes: [id number] INP/OBS CARE (HIGH) Secondary Visit Codes: [id number] COUNSELING IND CADY ROSS Aug 09, 2024 09:34
[2024-08-09] MEDS: IODIXANOL 320MG/ML 100ML BTL IV ONE ×2 (10:45→11:27)
[2024-08-09] MEDS: ANGIOMAX 250 MG VIAL IV ONE (10:56)
[2024-08-09] MEDS: MIDAZOLAM HCL 2MG/2ML 2ml VIAL (1mg/ml) ONE (10:57)
[2024-08-09] MEDS: SODIUM CHL 0.9% 0 ML ONE (10:57)
[2024-08-09] MEDS: fentaNYL CITRATE 100 MCG/2 ML VL ONE (10:57)
[2024-08-09] MEDS: VERAPAMIL 2.5MG/ML INJ 2ML VIAL IV ONE (10:57)
[2024-08-09] MEDS: LIDOCAINE 2%HCL (LOCAL ANESTH.) INJ 20ML MDV ONE (10:57)
[2024-08-09] MEDS: hydrALAZINE HCL 20 MG/ML VL ONE (11:29)
[2024-08-09] MEDS: FUROSEMIDE 20 MG/2 ML VIAL ONE (11:32)
--- NOTE | 2024-08-09 11:41 | DVHOP2 ---
Operative Report Operative Report CARDIAC DIAMOND SAW OPERATOR PROCEDURE REPORT [place], [place] Date of Service: 08/09/24 Rn Bone Marrow Transplant: Arron Quiroga MD PROCEDURES PERFORMED: Coronary angiogram, left heart catheterization, conscious sedation administration and supervision, less than 15 minutes; fluoroscopy use and interpretation. sedation 15-30 mins, US guided vascular access PREOPERATIVE DIAGNOSES: NSTEMI POSTOP DIAGNOSIS: NSTEMI DESCRIPTION OF PROCEDURE: The patient or appropriate family signed informed consent understanding the risks, benefits and alternatives of the procedure, they wished to proceed. The patient was brought to the cardiac labor and delivery registered nurse in n.p.o. state. The patient was prepped in a sterile fashion. Sedation was used per cardiac cath protocol. I administered 2 mL of 2% lidocaine to the right wrist. With an antegrade front wall puncture. I cannulated the right radial artery and placed a 6-Faroese Glidesheath slender. Next, an intra-arterial spasmolytic was administered. Next, a - 6French Roland catheterattempted for cath. there was severe tortuosity. therefore we abandoned RRA approach and got FINANCIAL PLANNING CONSULTANT access. I used US and accessed with1 stick. . At the completion of procedure, all guides and wires were removed, and there were no immediate complications. angioseal used for closure. FINDINGS: RCA: Moderate vessel off the right sinus of Valsalva, ostial RCA 80% stenosis. mid RCA stent patent 50-60% stensois in mid portion LEFT MAIN: Moderate size left main, it bifurcates into LAD and circumflex. ostial LM stenosis 70%. there is >50 point gradient when engagin LM. CIRCUMFLEX: Moderate caliber vessel coming off the left main with no flow limiting stenosis. prox CX is patent. OM1 superior branch has 60-70% stenosis, OM1 inferior branch 50-60% stenosis mid cx is patent . LAD: LAD is a moderate caliber vessel coming of the left main. prox LAD 90% stenosis. mid LAD stents. 60-70% mid to distal LAD stenosis. distal LAD is 60% stenosis. CONCLUSIONS: 1. severe 3v cad PLAN: Aggressive risk factor modification and medical management for the patient. cabg consult ARRON QUIROGA MD Aug 09, 2024 11:41
[2024-08-09] MEDS: SODIUM CHLOR 0.9% PF (SALINE LOCK) 10ML VIAL/SYR IV SCH (14:00)
--- NOTE | 2024-08-09 14:55 | DVHSR ---
APPROVED REPORT EXAM: LIMITED Two-dimensional and M-mode echocardiogram with Doppler and color Doppler. Blood Pressure: 139/75 mmHg INDICATION LV Assessment RISK FACTORS Height: 5' 10", Weight: 244 DIMENSIONS LVDd3.7 (3.8-5.7cm)LA (2D)4.0 (1.9-4.0cm)Aortic Root3.3 (2.0-3.7cm) LVDs2.8 (2.5-4.0cm)LA (MM) (1.9-4.0cm)Aortic Cusp Exc (1.5-2.0cm) EF (%) 47.0 (55-70%)Rt. Atrium3.8 (1.9-4.0cm)Asc. Aorta cm Mitral Valve MitralMitral Stenosis E wave0.30m/sMV Mean GR.mmHg A wave0.90m/sMV Peak GR.mmHg E/A ratio0.32D MVAcm2 Aortic Valve Aortic ValveAortic Stenosis V11.00m/Nadir Mean GR.4mmHg V21.20m/Nadir Peak GR.6mmHg LVOT Diameter2.4 (1.8-2.4cm)Doppler AVA3.77cm2 Other Information Quality : Technically LimitedRhythm : Technically limited study due to body habitus. Conclusion very limited quality study lvef 40% by visual estimate grade 1 diastolic dysfunction apex is hypokinetic RV not well seen appears to have normal function normal atria limited valve eval, no severe valve abnormalities noted
[2024-08-09 15:29] LABS: INR 1.06 (0.9-1.15); Partial Thromboplastin Time 24.2 SEC (24.5-34.5); Prothrombin Time 11.2 sec (9.3-11.8)
[2024-08-09] MEDS: LOSARTAN POTASSIUM 50 MG TAB PO SCH (18:20)
[2024-08-09] MEDS: ATORVASTATIN 20 MG TAB PO SCH (21:14)
[2024-08-09 22:08] LABS: INR 1.05 (0.9-1.15); Partial Thromboplastin Time 35.4 SEC (24.5-34.5); Prothrombin Time 11.1 sec (9.3-11.8)
[2024-08-10] VITALS (9 sets, daily range): BP systolic 115–182; BP diastolic 63–97; PULSE 67–88; RESP 16–18; TEMP 97.6–98.3; O2SAT 96–98
[2024-08-10] MEDS: HEPARIN DRIP/D5W 100UNITS/ML 250 ML IV SCH (00:42)
[2024-08-10] MEDS: hydrALAZINE HCL 20 MG/ML VL IV PRN (05:52)
[2024-08-10 06:25] LABS: Anion Gap 8 (5-15); Carbon Dioxide 27 mmol/L (20-31); Chloride 104 mmol/L (98-107); Potassium 3.7 mmol/L (3.5-5.1); Sodium 139 mmol/L (136-145)
[2024-08-10 06:26] LABS: Calcium 10.3 mg/dL (8.7-10.4)
[2024-08-10 06:31] LABS: BUN/Creatinine Ratio 16.2 (10.0-20.0); Blood Urea Nitrogen 18 mg/dL (9-23); Magnesium 2.1 mg/dL (1.6-2.6); Triglycerides 86 mg/dL (< 150)
[2024-08-10 06:33] LABS: Cholesterol 174 mg/dL (< 200); HDL Cholesterol 45 mg/dL (40-59); INR 1.07 (0.9-1.15); Partial Thromboplastin Time 51.8 SEC (24.5-34.5); Prothrombin Time 11.3 sec (9.3-11.8)
[2024-08-10 06:34] LABS: Glucose 127 mg/dL (74-106)
[2024-08-10 06:36] LABS: Hematocrit 43.8 % (41.0-53.0); Hemoglobin 14.8 g/dL (13.5-17.5); Mean Corpuscular Hemoglobin 30.9 pg (28.0-32.0); Mean Corpuscular Volume 91.5 fL (80.0-100.0); Nucleated Red Blood Cells % 0.1 %
[2024-08-10] MEDS: cefTRIAXone 1GM/50ML D5W 50 ML IV SCH (09:18)
[2024-08-10] MEDS: PANTOPRAZOLE 40 MG/10 ML VIAL INJ IV SCH (09:19)
--- NOTE | 2024-08-10 10:54 | DVHPN2 ---
Consult Progress Note Subjective Other Systems: Patient in normal sinus rhythm at time of assessment. Denies any cardiac symptoms Objective vital signs Vital Sign Date Time Temp Pulse Resp B/P (MAP) Pulse Ox O2 Delivery O2 Flow Rate FiO2 08/10/24 09:40 157/97 08/10/24 09:00 97.9 78 18 98 97.9 08/10/24 08:00 Room Air* 0 21 Total Intake and Output 08/09/24 08/09/24 08/10/24 15:00 23:00 07:00 Intake Total 10 ml Output Total 1875 ml 450 ml Balance -1865 ml -450 ml medications Current Medications Medications Dose Ordered Sig/Gisele Route Start Time Stop Time Status Last Admin Dose Admin Sodium Chloride 10 ml Q8HR IV 08/09/24 14:00 08/10/24 09:19 10 ML Hydralazine HCl 10 mg Q6HP PRN IV 08/09/24 08:30 08/10/24 05:52 10 MG Atorvastatin Calcium 40 mg HS PO 08/09/24 22:00 08/09/24 21:14 40 MG Acetaminophen 650 mg Q6HP PRN PO 08/09/24 09:30 Ondansetron HCl 4 mg Q4HP PRN IV 08/09/24 09:30 Nitroglycerin 0.4 mg Q5MINP PRN SL 08/09/24 09:30 Morphine Sulfate 2 mg Q30M PRN IV 08/09/24 09:30 Ceftriaxone Sodium 50 ml @ 100 mls/hr DAILY@09 IV 08/09/24 09:30 Amlodipine Besylate 5 mg DAILY PO 08/09/24 10:00 08/10/24 09:40 5 MG Losartan Potassium 50 mg QPM PO 08/09/24 18:00 08/09/24 18:20 50 MG Pantoprazole Sodium 40 mg DAILY IV 08/09/24 09:30 08/10/24 09:38 40 MG Heparin Sodium/ Dextrose 250 ml @ 12 mls/hr [id number] IV 08/09/24 22:30 08/10/24 00:42 12 MLS/HR Examination: GENERAL:Normal, LUNGS:Normal, CVS:Normal, NEURO:Normal laboratory and microbiology Laboratory Tests 08/10/24 05:46 Test 08/10/24 05:46 Range/Units Serum Glucose 127 H 74-106 mg/dL Problem List/Assessment/Plan Problem List/Assessment/Plan 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 Kendall): Case discussed with . The patient underwent a coronary angiogram with left heart catheterization which revealed severe three-vessel coronary artery disease. At this time, we will recommend for the patient to be transferred to higher level of care for CABG consult. Patient has been accepted to [facility]. We are waiting for bed placement. Transthoracic echocardiogram reveals EF 40% with hypokinetic apex. In the meantime, continue with heparin drip per ACS protocol. Continue lipid-lowering agent. Continue with close cardiac surveillance. Thank you for allowing us to care for this patient. Please call with any questions or concerns. This medical document was created using an electronic medical record system with voice recognition software and computerized dictation system. Although this document has been carefully reviewed, there might still be some phonetic and typographical errors. Occasional wrong-word or ``sound-alike substitutions may have occurred due to the inherent limitations of voice recognition software. These areas are purely typographical due to imperfections of the software programs and do not reflect any compromise in the patient's medical care. Please read the chart carefully and recognize, using context, where these substitutions have occurred. Plan discussed with: Patient Date of Service: Aug 10, 2024 Billing Provider: LYNDA CARLISLE Common Visit Codes: [id number] INP/OBS CARE(HIGH) LYNDA CARLISLE Aug 10, 2024 10:54
[2024-08-10] MEDS: FUROSEMIDE 20 MG/2 ML VIAL IV ONE (13:25)
[2024-08-10 13:29] LABS: INR 1.07 (0.9-1.15); Partial Thromboplastin Time 51.2 SEC (24.5-34.5); Prothrombin Time 11.3 sec (9.3-11.8)
--- NOTE | 2024-08-10 16:05 | DVHPNRES ---
Progress Note Date Seen: Aug 10, 2024 Resident Creating Document: FABIAN FORD RESIDENT Medical Necessity Reason Pt with a Central, PICC or Fol: No Subjective Review of Systems 83-year-old male patient with Significant past medical history includes coronary artery disease status post multiple PTCA's x 7 TRELL (on ASA and Plavix), myocardial infarction, hypertension, dyslipidemia, hepatitis-C, and obesity, who presents to emergency room with chief complaint of chest pain. The patient reports that the chest pain began at approximately 3:00 a.m. this morning while he was asleep. He describes the pain as unprovoked, constant, pressure-like in nature, midsternal and nonradiating. He denies any associated symptoms. The patient reports waiting approximately 1 hour before deciding to come to the emergency room. Initial twelve lead electrocardiogram reveals sinus rhythm with PVCs and lateral Q-waves. Initial troponin level of 133ng/L with significant up trend and current peak level at >8k ng/L. Objective vital signs Vital Sign Date Time Temp Pulse Resp B/P (MAP) Pulse Ox O2 Delivery O2 Flow Rate FiO2 08/10/24 13:25 157/97 08/10/24 13:00 98.3 73 17 98 98.3 08/10/24 08:00 Room Air* 0 21 Total Intake and Output 08/09/24 08/09/24 08/10/24 15:00 23:00 07:00 Intake Total 10 ml Output Total 1875 ml 450 ml Balance -1865 ml -450 ml medications Current Medications Medications Dose Ordered Sig/Gisele Route Start Time Stop Time Status Last Admin Dose Admin Sodium Chloride 10 ml Q8HR IV 08/09/24 14:00 08/10/24 09:19 10 ML Hydralazine HCl 10 mg Q6HP PRN IV 08/09/24 08:30 08/10/24 05:52 10 MG Atorvastatin Calcium 40 mg HS PO 08/09/24 22:00 08/09/24 21:14 40 MG Acetaminophen 650 mg Q6HP PRN PO 08/09/24 09:30 Ondansetron HCl 4 mg Q4HP PRN IV 08/09/24 09:30 Nitroglycerin 0.4 mg Q5MINP PRN SL 08/09/24 09:30 Morphine Sulfate 2 mg Q30M PRN IV 08/09/24 09:30 Ceftriaxone Sodium 50 ml @ 100 mls/hr DAILY@09 IV 08/09/24 09:30 08/10/24 10:58 100 MLS/HR Amlodipine Besylate 5 mg DAILY PO 08/09/24 10:00 08/10/24 09:40 5 MG Losartan Potassium 50 mg QPM PO 08/09/24 18:00 08/09/24 18:20 50 MG Pantoprazole Sodium 40 mg DAILY IV 08/09/24 09:30 08/10/24 09:38 40 MG Heparin Sodium/ Dextrose 250 ml @ 12 mls/hr [id number] IV 08/09/24 22:30 08/10/24 11:57 12 MLS/HR Examination General Appearance: Not in acute distress Pulmonary/Respiratory: Clear, bilateral breaths sounds. Cardiovascular/Chest: Regular rate and rhythm. Peripheral Pulses: 2+ Radial (R). 2+ Radial (L). 2+ Pedal (R). 2+ Pedal (L) Abdominal Exam: Normal bowel sounds. Lower extremities: 3+ pitting edema Neuro/Mental Status: A/OX4, laboratory and microbiology Laboratory Tests 08/10/24 05:46 Test 08/10/24 05:46 Range/Units Serum Glucose 127 H 74-106 mg/dL Problem List/Assessment/Plan Problem List/Assessment/Plan # NSTEMI with severe three-vessel coronary artery disease # Coronary artery disease s/p multiple PTCA's X 7 TRELL (on ASA and Plavix) # Hypertensive urgency # Chronic HFmrEF, NYHA class II # History myocardial infarction # History of left hip replacement in 2023 # Possible Gram-positive/Gram-negative bacterial pneumonia # Dyslipidemia # Hepatitis-B # History of tobacco use # Obesity - The patient underwent a coronary angiogram with left heart catheterization which revealed severe three-vessel coronary artery disease. - continue heparin drip - echocardiogram reveals EF 40% with hypokinetic apex. - transfer to higher level of care for CABG, Patient has been accepted to [facility]. We are waiting for bed placement. Goal of care discussed with patient for 27 minutes: Full code Plan discussed with Dr. Macedo Plan discussed with: Patient Date of Service: Aug 10, 2024 Billing Provider: ABDOULAYE MACEDO MD Common Visit Codes: [id number] INP/OBS CARE(HIGH) Coding Comment Comment informed that pt had a bed at [facility] however patient refused. discussed with patient of risk and benefit, included primary team and telephone engineer dr contreras. bed was not available anymore at [facility]. pending bed at [facility] if available. informed pt that minimal can be done in a non surgical center. pt and family understands risk and proceed with not taking [facility] bed. FABIAN FORD Aug 10, 2024 16:05 ABDOULAYE MACEDO MD Aug 11, 2024 16:50
[2024-08-10 19:26] LABS: INR 1.06 (0.9-1.15); Partial Thromboplastin Time 49.9 SEC (24.5-34.5); Prothrombin Time 11.2 sec (9.3-11.8)
[2024-08-11] VITALS (7 sets, daily range): BP systolic 111–152; BP diastolic 69–98; PULSE 69–83; RESP 17–18; TEMP 97–98.3; O2SAT 93–99
[2024-08-11 07:44] LABS: Hematocrit 46.5 % (41.0-53.0); Hemoglobin 15.7 g/dL (13.5-17.5); Mean Corpuscular Hemoglobin 31.1 pg (28.0-32.0); Mean Corpuscular Volume 92.3 fL (80.0-100.0); Nucleated Red Blood Cells % 0.1 %
[2024-08-11 07:57] LABS: Chloride 106 mmol/L (98-107); Potassium 4.1 mmol/L (3.5-5.1); Sodium 138 mmol/L (136-145)
[2024-08-11 07:58] LABS: Anion Gap 9 (5-15); Carbon Dioxide 23 mmol/L (20-31)
[2024-08-11 08:03] LABS: BUN/Creatinine Ratio 15.2 (10.0-20.0); Blood Urea Nitrogen 15 mg/dL (9-23)
[2024-08-11 08:20] LABS: Calcium 10.6 mg/dL (8.7-10.4); Glucose 121 mg/dL (74-106)
--- NOTE | 2024-08-11 08:32 | DVHPN2 ---
Progress Note Date Seen: Aug 11, 2024 Medical Necessity Reason Pt with a Central, PICC or Fol: No Subjective Other Systems: pt refused tx to [facility] i called pt and told family that there is no guarantee he will get a bed [facility] family refused tx under standing that they are willingly delyaing his care if pt decompensates, there is little can be done at non surgical center they still declined but then bed was removed at [facility] Objective vital signs Vital Sign Date Time Temp Pulse Resp B/P (MAP) Pulse Ox O2 Delivery O2 Flow Rate FiO2 08/11/24 05:16 152/98 08/11/24 05:00 97.8 75 17 97 97.8 08/10/24 20:00 Room Air* 0 21 Total Intake and Output 08/10/24 08/10/24 08/11/24 15:00 23:00 07:00 Intake Total 50 ml 600 ml 920 ml Output Total 1200 ml 800 ml Balance 50 ml -600 ml 120 ml medications Current Medications Medications Dose Ordered Sig/Gisele Route Start Time Stop Time Status Last Admin Dose Admin Sodium Chloride 10 ml Q8HR IV 08/09/24 14:00 08/11/24 05:16 10 ML Hydralazine HCl 10 mg Q6HP PRN IV 08/09/24 08:30 08/11/24 05:16 10 MG Atorvastatin Calcium 40 mg HS PO 08/09/24 22:00 08/10/24 21:28 40 MG Acetaminophen 650 mg Q6HP PRN PO 08/09/24 09:30 Ondansetron HCl 4 mg Q4HP PRN IV 08/09/24 09:30 Nitroglycerin 0.4 mg Q5MINP PRN SL 08/09/24 09:30 Morphine Sulfate 2 mg Q30M PRN IV 08/09/24 09:30 Ceftriaxone Sodium 50 ml @ 100 mls/hr DAILY@09 IV 08/09/24 09:30 08/10/24 10:58 100 MLS/HR Amlodipine Besylate 5 mg DAILY PO 08/09/24 10:00 08/10/24 09:40 5 MG Losartan Potassium 50 mg QPM PO 08/09/24 18:00 08/10/24 18:41 50 MG Pantoprazole Sodium 40 mg DAILY IV 08/09/24 09:30 08/10/24 09:38 40 MG Heparin Sodium/ Dextrose 250 ml @ 12 mls/hr [id number] IV 08/09/24 22:30 08/10/24 11:57 12 MLS/HR Examination: GENERAL:Abnormal, HEENT:Abnormal, LUNGS:Abnormal, CVS:Abnormal, ABDOMEN:Abnormal laboratory and microbiology Laboratory Tests 08/11/24 07:06 Test 08/11/24 07:06 Range/Units Serum Glucose 121 H 74-106 mg/dL Problem List/Assessment/Plan Problem List/Assessment/Plan multivessel cad htn obesity HL ckd elevated lvedp heparin gtt family should consider accepting to cabg center when accepted his prognosis is guarded , asa lasix Plan discussed with: Patient Date of Service: Aug 11, 2024 Billing Provider: ARRON QUIROGA MD Common Visit Codes: NOT BILLABLE ARRON QUIROGA MD Aug 11, 2024 08:32
[2024-08-11 12:35] LABS: Hematocrit 43.5 % (41.0-53.0); Hemoglobin 14.9 g/dL (13.5-17.5); Mean Corpuscular Hemoglobin 30.9 pg (28.0-32.0); Mean Corpuscular Volume 90.3 fL (80.0-100.0); Nucleated Red Blood Cells % 0.2 %
[2024-08-11 12:57] LABS: INR 1.11 (0.9-1.15); Partial Thromboplastin Time 33.8 SEC (24.5-34.5); Prothrombin Time 11.6 sec (9.3-11.8)
--- NOTE | 2024-08-11 13:57 | CONS ---
Pharmacy Clinical Information: BOLUS 5000 UNITS HEPARIN IV AND INCREASE HEPARIN DRIP RATE TO 1500 UNITS/HR PER APTT OF 33.8 (SUBTHERAPEUTIC) NEXT APTT DRAW SCHEDULED FOR 1999 PER RX PROTOCOL JAIRON CHATMAN PHARMACIST Aug 11, 2024 13:57
[2024-08-11] MEDS: HEPARIN SODIUM (PORCINE) 5000 UNITS/ML 1ML VIAL IV ONE (14:25)
[2024-08-11] MEDS: HEPARIN DRIP/D5W 100UNITS/ML 250 ML IV SCH (14:30)
[2024-08-11 20:38] LABS: INR 1.07 (0.9-1.15); Prothrombin Time 11.3 sec (9.3-11.8)
--- NOTE | 2024-08-11 20:39 | DVHDSRES ---
Discharge Summary Date of Admission Resident Creating Document: FABIAN FORD RESIDENT Aug 09, 2024 at 09:16 Date of Discharge: Aug 11, 2024 Admitting Diagnosis NSTEMI Wounds: No wound was present Labs/Diagnostic Data: Laboratory Results Test 08/11/24 19:50 08/11/24 12:14 08/11/24 07:06 08/10/24 05:46 White Blood Count 6.6 10^3/uL (4.4-10.8) Red Blood Count 4.82 10^6/uL (4.5-5.90) Hemoglobin 14.9 g/dL (13.5-17.5) Hematocrit 43.5 % (41.0-53.0) Mean Corpuscular Volume 90.3 fL (80.0-100.0) Mean Corpuscular Hemoglobin 30.9 pg (28.0-32.0) Mean Corpuscular Hemoglobin Concent 34.2 g/dL (32.0-36.0) Red Cell Distribution Width 13.7 % (11.8-14.3) Platelet Count 180 10^3/uL (140-450) Mean Platelet Volume 7.8 fL (6.9-10.8) Neutrophils (%) (Auto) 65.2 % (37.0-80.0) Lymphocytes (%) (Auto) 22.3 % (10.0-50.0) Monocytes (%) (Auto) 9.9 % (0.0-12.0) Eosinophils (%) (Auto) 2.4 % (0.0-7.0) Basophils (%) (Auto) 0.2 % (0.0-2.0) Neutrophils # (Auto) 4.3 10 ^3/uL (1.6-8.6) Lymphocytes # (Auto) 1.5 10 ^3/uL (0.4-5.4) Monocytes # (Auto) 0.7 10 ^3/uL (0-1.3) Eosinophils # (Auto) 0.2 10 ^3/uL (0-0.8) Basophils # (Auto) 0 10 ^3/uL (0-0.2) Nucleated Red Blood Cells 0.2 % Sodium Level 138 mmol/L (136-145) Potassium Level 4.1 mmol/L (3.5-5.1) Chloride Level 106 mmol/L (98-107) Carbon Dioxide Level 23 mmol/L (20-31) Anion Gap 9 (5-15) Blood Urea Nitrogen 15 mg/dL (9-23) Creatinine 0.99 mg/dL (0.700-1.30) Glomerular Filtration Rate Calc 76 mL/min (>90) BUN/Creatinine Ratio 15.2 (10.0-20.0) Serum Glucose 121 mg/dL (74-106) Calcium Level 10.6 mg/dL (8.7-10.4) Magnesium Level 2.1 mg/dL (1.6-2.6) Triglycerides Level 86 mg/dL (< 150) Cholesterol Level 174 mg/dL (< 200) LDL Cholesterol 124 mg/dL (< 100) HDL Cholesterol 45 mg/dL (40-59) Test 08/09/24 09:28 08/09/24 07:46 08/09/24 07:29 08/09/24 04:23 Troponin I High Sensitivity 8249 ng/L (</=54) Urine Color Colorless (Yellow) Urine Clarity Clear (Clear) Urine pH 7.0 (5.0-9.0) Urine Specific [place] 1.005 (1.001-1.035) Urine Protein Negative (Negative) Urine Ketones Negative (Negative) Urine Blood Negative /uL (Negative) Urine Nitrite Negative (Negative) Urine Bilirubin Negative (Negative) Urine Urobilinogen Normal mg/dL (Negative) Urine Leukocyte Esterase Negative /uL (Negative) Urine RBC None seen /hpf (0 - 3) Urine Microscopic WBC < 1 /HPF (0-3) Urine Squamous Epithelial Cells None seen /hpf (<5) Urine Bacteria None seen /hpf (None Seen) Urine Glucose Normal mg/dL (Normal) Urine Opiates Screen Neg (NEGATIVE) Urine Fentanyl Screen Neg (NEGATIVE) Urine Barbiturates Screen Neg (NEGATIVE) Urine Phencyclidine Screen Neg (NEGATIVE) Urine Amphetamines Screen Neg (NEGATIVE) Urine Benzodiazepines Screen Neg (NEGATIVE) Urine Cocaine Screen Neg (NEGATIVE) Urine Cannabinoids Screen Neg (NEGATIVE) Free Thyroxine (T4) Calculated 1.04 ng/dL (0.89-1.76) D-Dimer, Quantitative 1.46 mg/L FEU (0.0-0.49) Hemoglobin A1c 5.8 % A1C (<5.7) B-Type Natriuretic Peptide 74.12 pg/mL (0-100) Thyroid Stimulating Hormone (TSH) 3.29 uIU/mL (0.55-4.78) Other Laboratory Tests 08/11/24 12:14 08/11/24 07:06 Brief Hx & Hospital Course: This is a 83-year-old male patient with Significant past medical history includes coronary artery disease status post multiple PTCA's x 7 TRELL (on ASA and Plavix), myocardial infarction, hypertension, dyslipidemia, hepatitis-C, and obesity, who presents to emergency room with chief complaint of chest pain. The patient reports that the chest pain began at approximately 3:00 a.m. this morning while he was asleep. He describes the pain as unprovoked, constant, pressure-like in nature, midsternal and nonradiating. He denies any associated symptoms. The patient reports waiting approximately 1 hour before deciding to come to the emergency room. Initial twelve lead electrocardiogram reveals sinus rhythm with PVCs and lateral Q-waves. Initial troponin level of 133ng/L with significant up trend and current peak level at >8k ng/L. Hospital course: Initial twelve lead electrocardiogram reveals sinus rhythm with PVCs and lateral Q-waves. Initial troponin level of 133ng/L with significant up trend and current peak level at >8k ng/L. patient was started on heparin drip. echocardiogram reveals EF 40% with hypokinetic apex. patient underwent angiogram with left heart catheterization which revealed severe three-vessel coronary artery disease and recommended to tranfer higher level of care for CABG. postprocedure coronary angiogram patient is continuing heparin drip and resumed home medications. social media sr strategy manager was consulted regarding arrangement for higher level of care for CABG. Patient has been accepted to [facility]. We are waiting for bed placement. Examination General Appearance: Not in acute distress Pulmonary/Respiratory: Clear, bilateral breaths sounds. Cardiovascular/Chest: Regular rate and rhythm. Peripheral Pulses: 2+ Radial (R). 2+ Radial (L). 2+ Pedal (R). 2+ Pedal (L) Abdominal Exam: Normal bowel sounds. Lower extremities: 3+ pitting edema Neuro/Mental Status: A/OX4, Consults/Reason for consult Cardiology was consulted Operations or Procedures CHEST RADIOGRAPH Indication: chest pain Technique: Single frontal view of the chest was obtained COMPARISON: XY CHEST PORTABLE on DOS: 09/15/22 FINDINGS: Lines and Tubes: None Lungs: Increased interstitial prominence Pleura: No effusion. No pneumothorax. Cardiomediastinal contours: Unremarkable Bones: Unremarkable IMPRESSION: Viral pneumonia or pulmonary vascular congestion Operative Report CARDIAC SVP DIGITAL AD SALES PROCEDURE REPORT [place], [place] Date of Service: 08/09/24 Diagnostic Technician: Niko Kendall MD PROCEDURES PERFORMED: Coronary angiogram, left heart catheterization, conscious sedation administration and supervision, less than 15 minutes; fluoroscopy use and interpretation. sedation 15-30 mins, US guided vascular access PREOPERATIVE DIAGNOSES: NSTEMI POSTOP DIAGNOSIS: NSTEMI DESCRIPTION OF PROCEDURE: The patient or appropriate family signed informed consent understanding the risks, benefits and alternatives of the procedure, they wished to proceed. The patient was brought to the cardiac lab clerk in n.p.o. state. The patient was prepped in a sterile fashion. Sedation was used per cardiac cath protocol. I administered 2 mL of 2% lidocaine to the right wrist. With an antegrade front wall puncture. I cannulated the right radial artery and placed a 6-[place] Glidesheath slender. Next, an intra-arterial spasmolytic was administered. Next, a - 6French Lenore catheterattempted for cath. there was severe tortuosity. therefore we abandoned RRA approach and got SUPERVISOR SMALL APPLIANCE ASSEMBLY access. I used US and accessed with1 stick. . At the completion of procedure, all guides and wires were removed, and there were no immediate complications. angioseal used for closure. FINDINGS: RCA: Moderate vessel off the right sinus of Valsalva, ostial RCA 80% stenosis. mid RCA stent patent 50-60% stensois in mid portion LEFT MAIN: Moderate size left main, it bifurcates into LAD and circumflex. ostial LM stenosis 70%. there is >50 point gradient when engagin LM. CIRCUMFLEX: Moderate caliber vessel coming off the left main with no flow limiting stenosis. prox CX is patent. OM1 superior branch has 60-70% stenosis, OM1 inferior branch 50-60% stenosis mid cx is patent . LAD: LAD is a moderate caliber vessel coming of the left main. prox LAD 90% stenosis. mid LAD stents. 60-70% mid to distal LAD stenosis. distal LAD is 60% stenosis. CONCLUSIONS: 1. severe 3v cad PLAN: Aggressive risk factor modification and medical management for the patient. cabg consult Condition at Discharge: Stable Final Diagnosis/Problems List # NSTEMI with severe three-vessel coronary artery disease # Coronary artery disease s/p multiple PTCA's X 7 TRELL (on ASA and Plavix) # Hypertensive urgency # Chronic HFmrEF, NYHA class II # History myocardial infarction # History of left hip replacement in 2023 # Possible Gram-positive/Gram-negative bacterial pneumonia # Dyslipidemia # Hepatitis-B # History of tobacco use # Obesity, BMI 33.0 kg/m2 Discharge Disposition: Acute Care Facility Discharge Instruct/Medications Diet: Cardiac 2g Na,low cholest Activity: No Restrictions, As Tolerated Follow Up/Referral: Follow up with PCP after 1 week of discharge Medications: As per EMR Scheduled Amlodipine Besylate (Amlodipine Besylate), 5 MG PO DAILY, (Reported) Aspirin (Aspir-81), 81 MG PO DAILY, (Reported) Atorvastatin Calcium (Lipitor), 40 MG PO DAILY, (Reported) Ergocalciferol (Vitamin D), 1 CAP PO QWEEKLY, (Reported) Losartan Potassium (Losartan Potassium), 50 MG PO QPM, (Reported) Discharge Statement: "Patient was advised to return to the ER or call 911 if any headaches, dizziness, shortness of breath, chest pain, abdominal pain, bleeding, fevers, or worsening of medical condition. Patient was counseled about treatment plan, medications, possible side effects, patientverbalized understanding. All questions were answered to the best of my ability. This discharge took greater then 30 minutes in planning, reviewing documentation, counseling the patient, and discussing with other team members." ASSESSMENT ASSESSMENT Assessment NSTEMI with severe three-vessel coronary artery disease. s/p [facility] Date of Service: Aug 11, 2024 Billing Provider: ABDOULAYE MACEDO MD Common Visit Codes: 78915-FZV/OBS DISCH DAY >30min TITO ALLEN Aug 11, 2024 20:39 ABDOULAYE MACEDO MD Aug 12, 2024 21:14
[2024-08-11 20:42] LABS: Partial Thromboplastin Time 108.9 SEC (24.5-34.5)
== END 2024-08-11 20:36 | disposition short-term general hospital (02) | DRG 280 ==
LOC: ER 04:16 → OVERFLOW 09:16 → TELE-EAST 16:21
PROC: 4A023N7 Measurement of Cardiac Sampling and Pressure, Left Heart, Percutaneous Approach (ICD-10-PCS; principal; 2024-08-09)
PROC: B211YZZ Fluoroscopy of Multiple Coronary Arteries using Other Contrast (ICD-10-PCS; 2024-08-09)
DX: I21.4 Non-ST elevation (NSTEMI) myocardial infarction (principal); J15.69 Pneumonia due to other Gram-negative bacteria; J15.9 Unspecified bacterial pneumonia; I50.22 Chronic systolic (congestive) heart failure; I13.0 Hypertensive heart and chronic kidney disease with heart failure and stage 1 through stage 4 chronic kidney disease, or unspecified chronic kidney disease; B19.10 Unspecified viral hepatitis B without hepatic coma; I16.0 Hypertensive urgency; E78.5 Hyperlipidemia, unspecified; E66.9 Obesity, unspecified; I49.3 Ventricular premature depolarization; I25.10 Atherosclerotic heart disease of native coronary artery without angina pectoris; N18.9 Chronic kidney disease, unspecified; Z96.642 Presence of left artificial hip joint; Z79.82 Long term (current) use of aspirin; Z68.33 Body mass index [BMI] 33.0-33.9, adult; Z95.5 Presence of coronary angioplasty implant and graft
CPT/HCPCS: 36415; 71045; 80048; 80061; 80307; 81001; 83036; 83735; 83880; 84132; 84439; 84443; 84484; 85025; 85379; 85610; 85730; 86850; 86900; 86901; 87040; 93005; 93306; 93458; 99152; 99291; G0378; J2250; J2470; Q9967

== ENCOUNTER 2024-08-27 16:24 | Inpatient (IN) | payer MEDICAID ==
[~2024-08-27] VITALS: Ht 177.8 cm; Wt 101.2 kg
[2024-08-27 10:23] VITALS: BP 114/74; PULSE 91; RESP 17; TEMP 98.4; O2SAT 95
[~2024-08-27 16:24] MED LIST changes: +ERGO1CAP12 PO
[2024-08-27 22:24] VITALS: BP_SYST 114; BP_DIAS 74; BP_DIAS 91; PULSE 91; RESP 17; TEMP 98.4; O2SAT 95
[2024-08-27 22:47] VITALS: PULSE 91; RESP 17; O2SAT 95
[2024-08-28] VITALS (8 sets, daily range): BP systolic 102–131; BP diastolic 56–75; PULSE 59–100; RESP 15–18; TEMP 97.8–98.6; O2SAT 92–95
[2024-08-28] MEDS ORDERED: MORPHINE SULFATE INJ 2 MG/ml SYRG IV PRN (01:30)
[2024-08-28] MEDS ORDERED: NITROGLYCERIN 0.4 MG SL TAB SL PRN (01:30)
--- NOTE | 2024-08-28 01:39 | DVHHP2 ---
History of Present Illness History of Present Illness Patient is 83 years old male with a past medical history of CAD, S/P multiple PTCAs x7 TRELL, h/o myocardial infarction, hypertension, dyslipidemia, hepatitis- C, and obesity was admitted at [facility] on 08/09/2024 due to acute chest pain and patient was found to have acute coronary syndrome NSTEMI Type 1, Initial twelve lead electrocardiogram reveals sinus rhythm with PVCs and lateral Q-waves, elevated troponin which Peaked to >8k ng/L, Echo revealed LVEF 40% with a hypokinetic apex. Patient underwent angiogram with left heart cathete rization which revealed severe three-vessel coronary artery disease. Patient was transferred to [facility] on 08/11/2024 for CABG. Patient had CABG ( AVENDAÑO to LAD, SVG to OM/PDA) done at [facility] on 08/15/2024. Patient's post CABG hospital course was complicated by atrial fibrillation with a rapid ventricular rate, reverted to sinus rhythm as per [facility] documentation. Today patient was transferred back to [facility] for further care. Patient denied any acute chest pain, shortness of breaths, fever, coughing, palpitation. Past Medical History CAD, S/P multiple PTCAs x7 TRELL, h/o myocardial infarction, hypertension, dyslipidemia, hepatitis-C, and obesity Past Surgical History History of left hip surgery due to osteoarthritis end-stage, PTCA, status post CABG Past Social History Denies Smoking/occasional alcoholic/ denies substance abuse Review of Systems Review of Systems Allergy- NKDA Patient was seen today at the bedside. Cardiovascular- deny acute chest pain or shortness of breath or cough or palpitation Respiratory denies cough or short of breath or wheezing Gastrointestinal- denies any rectal bleeding, nausea or vomiting Musculoskeletal-denies acute joint swelling or tenderness or redness Neurological- denies acute dysarthria, dysphagia, change in vision Psychiatry- denies depression or SI or HI Skin- denies acute rash or purpura Allergies: Coded Allergies: NO KNOWN ALLERGIES (Unverified , 09/15/22) Medications Current Medications Medications Dose Ordered Sig/Gisele Route Start Time Stop Time Status Last Admin Dose Admin Sodium Chloride 10 ml Q8HR IV 08/28/24 06:00 UNV Enoxaparin Sodium 40 mg DAILY SC 08/28/24 10:00 UNV Nitroglycerin 0.4 mg Q5MINP PRN SL 08/28/24 01:30 UNV Morphine Sulfate 2 mg Q30M PRN IV 08/28/24 01:30 UNV Exam Vital Signs Vital Signs Date Time Temp Pulse Resp B/P (MAP) Pulse Ox O2 Delivery O2 Flow Rate FiO2 08/27/24 22:24 98.4 91 17 114/74 (87) 95 98.4 Exam General examination- awake, alert, oriented HEENT- PEERLA, no acute nasal discharge Cardiovascular--sternotomy incision mari, no erythema or drainage, Respiratory- bilateral diminished breath sound, no rhonchi Gastrointestinal-nontender, bowel sound+. Nondistended Musculoskeletal-no acute joint swelling or tenderness or redness Lower extremity- + bilateral leg edema, right SVG incision mari, no discharge Neurological- alert and oriented x3, cranial nerves intact, no acute dysarthria or dysphagia Psychiatry- denies depression or SI or HI Skin- no acute rash or purpura SEPSIS Sepsis Screen Physician Orders Hepatitis B Surface Antigen (08/27/24 23:48) Hepatitis C Antibody (08/27/24 23:48) Admit (08/28/24 01:25) Code Status (08/28/24 01:25) Sodium Chloride Lock (Saline Lock Ns) (08/28/24 06:00) Enoxaparin Sodium (Lovenox) (08/28/24 10:00) Complete Blood Count (08/29/24 04:00) Comprehensive Metabolic Panel (08/29/24 04:00) Cardiac Diet-2gna,Lofat,Lochol (08/28/24 Breakfast) Echo 2d Mode Cardiac Dop (08/28/24 01:25) Nitroglycerin Sublingual (Ntrostat Subli (08/28/24 01:30) Morphine Sulfate Injection (08/28/24 01:30) Notify Md Of Changes From Base (08/28/24 01:25) Flight Operation Coordinator For 24 Hours (08/28/24 01:25) Amlodipine Tablet (Norvasc Tablet) (08/28/24 10:00) Aspirin Enteric Coated Tablet (Ecotrin E (08/28/24 10:00) Ergocalciferol (Vitamin D 50,000 Unit) (08/28/24 01:45) Losartan Tablet (Cozaar Tablet) (08/28/24 18:00) (Nf) Atorvastatin Calcium (Lipitor) (08/28/24 10:00) Pantoprazole Tablet (Protonix Tablet) (08/28/24 06:00) Pantoprazole Tablet (Protonix Tablet) (08/28/24 01:45) Chest Xray 1 View (08/28/24 01:36) Complete Blood Count (08/28/24 01:36) Comprehensive Metabolic Panel (08/28/24 01:36) Thyroid Stimulating Hormone (08/28/24 01:36) Magnesium (08/28/24 01:36) Vital Signs Date Time Temp Pulse Resp B/P (MAP) Pulse Ox O2 Delivery O2 Flow Rate FiO2 08/27/24 22:24 98.4 91 17 114/74 (87) 95 98.4 08/27/24 22:24 98.4 91 17 114/91 (99) 95 98.4 Assessment/Plan Assessment/Plan Assessment and plan # CAD, triple-vessel disease, S/P CABG ( AVENDAÑO to LAD, SVG to OM/PDA) on 08/15/2024 at [facility], history of multiple stents x7 TRELL -continue aspirin 81 mg p.o. daily -Atorvastatin 40 mg p.o. q.h.s. -continue metoprolol tartrate 25 mg p.o. b.i.d. -monitor vitals # Hypertension -continue metoprolol tartrate 25 mg p.o. b.i.d. -monitor vitals # prediabetes -HBA1c at [facility] 6.1 -cardiac diet # Hyperlipidemia -continue atorvastatin 40 mg p.o. q.h.s. # Obesity -patient was counseled about the effect of obesity on health, weight reduction, physical activity, healthy diet # Hepatitis-C -follow up outpatient with the primary care physician for further care Diet-cardiac diet, low carb diet Goals of care, Code status full code ; discussed with >15 minutes PUD prophylaxis: Pantoprazole DVT prophylaxis: Lovenox Plan discussed with Dr. Kaba , nursing staff, Total time spent on patient evaluation, chart review, assessment and plan, discussion discussion >35 minutes Plan discussed with: Patient, Other (RN) My Orders Orders - BOBBY CARTER RESIDENT Procedure Category Date Status Time Admit ADMIT 08/28/24 Transmitted 01:25 Code Status CODE 08/28/24 Transmitted 01:25 Sodium Chloride Lock PHA 08/28/24 Logged (Saline Lock Ns) 06:00 Enoxaparin Sodium PHA 08/28/24 Logged (Lovenox) 10:00 Complete Blood Count LAB 08/29/24 Verified 04:00 Comprehensive LAB 08/29/24 Verified Metabolic Panel 04:00 Cardiac DIET 08/28/24 Transmitted Diet-2gna,Lofat,Lochol Breakfast Echo 2d Mode Cardiac US 08/28/24 Logged DOP 01:25 Nitroglycerin PHA 08/28/24 Logged Sublingual (Ntrostat 01:30 Morphine Sulfate PHA 08/28/24 Logged Injection 01:30 Notify Of Changes VIELKA 08/28/24 In Process From Base 01:25 Flight Operation Coordinator For VIELKA 08/28/24 In Process 24 Hours 01:25 Amlodipine Tablet PHA 08/28/24 Verified (Norvasc Tablet) 10:00 Aspirin Enteric PHA 08/28/24 Verified Coated Tablet 10:00 Ergocalciferol PHA 08/28/24 Verified (Vitamin D 50,000 01:45 Losartan Tablet PHA 08/28/24 Verified (Cozaar Tablet) 18:00 (Nf) Atorvastatin PHA 08/28/24 Verified Calcium (Lipitor) 10:00 Pantoprazole Tablet PHA 08/28/24 Verified (Protonix Tablet) 06:00 Pantoprazole Tablet PHA 08/28/24 Verified (Protonix Tablet) 01:45 Chest Xray 1 View XY 08/28/24 Verified 01:36 Complete Blood Count LAB 08/28/24 Verified 01:36 Comprehensive LAB 08/28/24 Verified Metabolic Panel 01:36 Thyroid Stimulating LAB 08/28/24 Verified Hormone 01:36 Magnesium LAB 08/28/24 Verified 01:36 Date of Service: Aug 28, 2024 Billing Provider: DORIAN KABA MD Common Visit Codes: [id number] INP/OBS CARE (HIGH) Secondary Visit Codes: [id number] CARE PLAN 30 MINUTES BOBBY CARTER RESIDENT Aug 28, 2024 01:39
[2024-08-28] MEDS: PANTOPRAZOLE 40 MG TAB PO ONE (02:07)
[2024-08-28] MEDS ORDERED: ACET-1881 PO (02:40)
[2024-08-28] MEDS ORDERED: ASCO500T16 PO (02:48)
[2024-08-28] MEDS ORDERED: LIDO5PAD12 EX (02:48)
[2024-08-28] MEDS ORDERED: MUPI2OIN2 EX (02:48)
[2024-08-28] MEDS ORDERED: METO25TA5 PO (02:48)
[2024-08-28] MEDS ORDERED: FAMO-12 PO (02:48)
[2024-08-28] MEDS ORDERED: POLY335015 PO (02:48)
[2024-08-28] MEDS ORDERED: ASCO500C46 PO (02:48)
[2024-08-28] MEDS ORDERED: BUME1TAB3 PO (02:48)
[2024-08-28] MEDS ORDERED: MULT-1018 PO (02:48)
[2024-08-28] MEDS ORDERED: ATOR40TA52 PO (02:48)
[2024-08-28] MEDS ORDERED: INSU100I52 IJ (02:48)
[2024-08-28] MEDS ORDERED: ZINC220T6 PO (02:48)
[2024-08-28] MEDS ORDERED: INSU100I70 SC (02:48)
[2024-08-28] MEDS: ATORVASTATIN 20 MG TAB PO ONE (03:55)
[2024-08-28] MEDS: SODIUM CHLOR 0.9% PF (SALINE LOCK) 10ML VIAL/SYR IV SCH (06:43)
[2024-08-28] MEDS: BUMETANIDE 1 MG TAB PO SCH (06:43)
[2024-08-28 07:26] LABS: Hematocrit 29.3 % (41.0-53.0); Hemoglobin 10.5 g/dL (13.5-17.5); Mean Corpuscular Hemoglobin 32.6 pg (28.0-32.0); Mean Corpuscular Volume 91.2 fL (80.0-100.0); Nucleated Red Blood Cells % 0.0 %
[2024-08-28 07:35] LABS: Alkaline Phosphatase 76 U/L (46-116); Anion Gap 12 (5-15); BUN/Creatinine Ratio 27.8 (10.0-20.0); Calcium 10.0 mg/dL (8.7-10.4); Carbon Dioxide 26 mmol/L (20-31); Chloride 104 mmol/L (98-107); Magnesium 2.3 mg/dL (1.6-2.6); Potassium 3.5 mmol/L (3.5-5.1); Sodium 142 mmol/L (136-145); Total Protein 6.3 g/dL (5.7-8.2)
[2024-08-28 07:36] LABS: Albumin 3.8 g/dL (3.2-4.8)
[2024-08-28 07:37] LABS: Bilirubin, Total 0.7 mg/dL (0.2-1.0)
[2024-08-28 07:38] LABS: Alanine Aminotransferase 52 U/L (7-40); Blood Urea Nitrogen 30 mg/dL (9-23); Glucose 121 mg/dL (74-106)
[2024-08-28] MEDS: ERGOCALCIFEROL 50,000 UNIT(1.25MG) CAP PO SCH (08:18)
[2024-08-28] MEDS: ZINC SULFATE 220mg CAP or TAB PO SCH (08:18)
[2024-08-28] MEDS: ASCORBIC ACID 500 MG TAB PO SCH (08:19)
[2024-08-28] MEDS: ENOXAPARIN SOD 40 MG/0.4 ML SYRINGE SC SCH (08:19)
[2024-08-28] MEDS: ASPirin-EC 81 mg tab PO SCH (08:19)
[2024-08-28] MEDS: MULTIPLE VITAMIN TAB PO SCH (08:19)
[2024-08-28] MEDS: METOPROLOL TARTRATE 25 MG TAB PO SCH (08:20)
[2024-08-28] MEDS: POLYETHYLENE GLYCOL 17 GM PWDR PO SCH (08:20)
--- NOTE | 2024-08-28 09:38 | DVH ---
CHEST RADIOGRAPH Indication: CHF/PLEURAL EFFUSION Technique: Single frontal view of the chest was obtained Comparison: XY CHEST PORTABLE on DOS: 08/09/24, XY CHEST PORTABLE on DOS: 09/15/22 FINDINGS: Lines and Tubes: None Lungs: Increased interstitial prominence Pleura: No effusion. No pneumothorax. Cardiomediastinal contours: Unremarkable Bones: Unremarkable IMPRESSION: Viral pneumonia or pulmonary vascular congestion
[2024-08-28] MEDS: MUPIROCIN 2% OINT 15gm or 22gm FOR MRSA NARES EACHNOSTRI SCH (10:00)
[2024-08-28] MEDS ORDERED: ATORVASTATIN 20 MG TAB PO SCH (10:00)
--- NOTE | 2024-08-28 11:01 | ECG ---
[facility] Test Date: 2024-08-28 Test Time: 07:19:19 Pat Name: NICOLETTE GUADALUPE Department: Respiratoy Room: 0251T Gender: M Sharemilker: RADHA RUST LVN : 1940 Requested By: BOBBY CARTER Order Number: [id number] Reading MD: Joaquin Moncada Measurements Intervals [place] Rate: 89 P: 66 TX: 202 QRS: 26 QRSD: 116 T: 78 QT: 421 QTc: 513 Interpretive Statements Sinus rhythm Multiple premature complexes, vent & supraven Nonspecific intraventricular conduction delay Electronically Signed On 08-29-2024 15:25:07 PDT by Joaquin Moncada Please click the below link to view image of tracing.
--- NOTE | 2024-08-28 11:59 | ECG ---
[facility] Test Date: 2024-08-28 Test Time: 07:22:22 Pat Name: NICOLETTE GUADALUPE Department: Respiratoy Room: 0251T Gender: M Agency Operator: RADHA RUST LVN : 1940 Requested By: BOBBY CARTER Order Number: [id number] Reading MD: Joaquin Moncada Measurements Intervals [place] Rate: 84 P: 62 IN: 196 QRS: 25 QRSD: 115 T: 67 QT: 427 QTc: 505 Interpretive Statements Sinus rhythm Ventricular trigeminy Nonspecific intraventricular conduction delay Electronically Signed On 08-29-2024 15:25:11 PDT by Joaquin Moncada Please click the below link to view image of tracing.
--- NOTE | 2024-08-28 15:32 | DVHPNRES ---
Progress Note Date Seen: Aug 28, 2024 Resident Creating Document: TITO ALLEN RESIDENT Medical Necessity Reason Pt with a Central, PICC or Fol: No Subjective Review of Systems Patient is 83 years old male with a past medical history of CAD, S/P multiple PTCAs x7 TRELL, h/o myocardial infarction, hypertension, dyslipidemia, hepatitis- C, and obesity was admitted at [facility] on 08/09/2024 due to acute chest pain and patient was found to have acute coronary syndrome NSTEMI Type 1, Initial twelve lead electrocardiogram reveals sinus rhythm with PVCs and lateral Q-waves, elevated troponin which Peaked to >8k ng/L, Echo revealed LVEF 40% with a hypokinetic apex. Patient underwent angiogram with left heart catheterization which revealed severe three-vessel coronary artery disease. Patient was transferred to [facility] on 08/11/2024 for CABG. Patient had CABG ( AVENDAÑO to LAD, SVG to OM/PDA) done at [facility] on 08/15/2024. Patient's post CABG hospital course was complicated by atrial fibrillation with a rapid ventricular rate, reverted to sinus rhythm as per [facility] documentation. Patient was transferred back to [facility] for further care. Patient was seen and examined on the bedside. He is alert, oriented X3. Mentioned feeling well, no complaint of chest pain, shortness of breath, pain in the sternal incision site, leg swelling and pain. Patient is hemodynamically stable. Consulted social work msw to arrange SNF for cardiac rehabilitation post CABG. Patient is continuing inpatient physical therapy. Objective vital signs Vital Sign Date Time Temp Pulse Resp B/P (MAP) Pulse Ox O2 Delivery O2 Flow Rate FiO2 08/28/24 13:30 98.1 63 15 102/56 (71) 92 98.1 08/28/24 07:30 Room Air* 0 21 Total Intake and Output 08/27/24 08/27/24 08/28/24 15:00 23:00 07:00 Intake Total 240 ml Balance 240 ml medications Current Medications Medications Dose Ordered Sig/Gisele Route Start Time Stop Time Status Last Admin Dose Admin Sodium Chloride 10 ml Q8HR IV 08/28/24 06:00 08/28/24 06:43 10 ML Enoxaparin Sodium 40 mg DAILY SC 08/28/24 10:00 08/28/24 08:19 40 MG Nitroglycerin 0.4 mg Q5MINP PRN SL 08/28/24 01:30 Morphine Sulfate 2 mg Q30M PRN IV 08/28/24 01:30 Aspirin 81 mg DAILY PO 08/28/24 10:00 08/28/24 08:19 81 MG Ergocalciferol 50,000 unit QWEEKLY PO 08/28/24 10:00 08/28/24 08:18 50,000 UNIT Pantoprazole Sodium 40 mg DAILY@0600 PO 08/29/24 06:00 Atorvastatin Calcium 40 mg HS PO 08/28/24 22:00 Metoprolol Tartrate 25 mg BID PO 08/28/24 10:00 08/28/24 08:20 25 MG Mupirocin 1 applic BID EACHNOSTRI 08/28/24 10:00 09/02/24 09:59 Polyethylene Glycol 17 gm DAILY PO 08/28/24 10:00 Zinc Sulfate 220 mg DAILY PO 08/28/24 10:00 08/28/24 08:18 220 MG Ascorbic Acid 500 mg BID PO 08/28/24 10:00 08/28/24 08:19 500 MG Bumetanide 1 mg TID PO 08/28/24 06:00 08/28/24 06:43 1 MG Multivitamins 1 tab DAILY PO 08/28/24 10:00 08/28/24 08:19 1 TAB Examination Physical examination: General Appearance: Alert, Oriented X3, Cooperative, No acute distress HEENT: Atraumatic, PERRLA, EOMI, Mucous membrane moist/pink Respiratory: Clear to auscultation, Normal air movement Cardiovascular: Regular rate, Normal S1, Normal S2, No murmurs, no chest wall tenderness, no sign of erythema or infection in the sternal incision site Abdominal: Normal bowel sounds, Soft, No tenderness, No hepatospenomegaly, No masses Extremities: Rt SVG incision mari, No clubbing, No cyanosis, No edema, Normal pulses, No tenderness/swelling Skin: No rashes, No breakdown, No significant lesion Neuro: Normal speech, Strength at 5/5 X4 ext, Normal tone, Sensation intact, Cranial nerves 3-12 NL, Reflexes 2+ Psych/Mental Status: Mental status NL, Mood NL laboratory and microbiology Laboratory Tests 08/28/24 06:16 Test 08/28/24 06:16 Range/Units Serum Glucose 121 H 74-106 mg/dL Labs and/or images reviewed: Labs reviewed by me, Image(s) reviewed by me Problem List/Assessment/Plan Problem List/Assessment/Plan Assessment and plan # CAD, triple-vessel disease, S/P CABG ( AVENDAÑO to LAD, SVG to OM/PDA) on 08/15/[address] [facility], history of multiple stents x7 TRELL -continue aspirin 81 mg p.o. daily -Atorvastatin 40 mg p.o. q.h.s. -continue metoprolol tartrate 25 mg p.o. b.i.d. - Continue physical therapy. # Hypertensive heart disease -continue metoprolol tartrate 25 mg p.o. b.i.d. - Echo in [place] post CABG revealed normal EF 50% # prediabetes -HBA1c at [facility] 6.1 -cardiac diet # Hyperlipidemia -continue atorvastatin 40 mg p.o. q.h.s. # Obesity -patient was counseled about the effect of obesity on health, weight reduction, physical activity, healthy diet # Hepatitis-C -follow up outpatient with the primary care physician for further care Diet-cardiac diet, low carb diet Goals of care, Code status full code ; discussed with >15 minutes PUD prophylaxis: Pantoprazole DVT prophylaxis: Lovenox Plan discussed with Dr. Macedo Plan discussed with: Patient, Other (Spouse, son, daughter) My Orders My Orders Orders - TITO ALLEN Procedure Category Date Status Time * Hedge Fund Principal CONS 08/28/24 Transmitted Consult Date of Service: Aug 28, 2024 Billing Provider: ABDOULAYE MACEDO MD Common Visit Codes: [id number] INP/OBS CARE(HIGH) TITO ALLEN Aug 28, 2024 15:31 ABDOULAYE MACEDO MD Aug 30, 2024 14:25
[2024-08-28] MEDS ORDERED: LOSARTAN POTASSIUM 50 MG TAB PO SCH (18:00)
[2024-08-28] MEDS: ATORVASTATIN 20 MG TAB PO SCH (21:43)
[2024-08-29] VITALS (9 sets, daily range): BP systolic 107–144; BP diastolic 63–83; PULSE 64–86; RESP 16–22; TEMP 97.4–98.6; O2SAT 91–99
[2024-08-29] MEDS: PANTOPRAZOLE 40 MG TAB PO SCH (06:19)
[2024-08-29 07:07] LABS: Hematocrit 29.7 % (41.0-53.0); Hemoglobin 10.3 g/dL (13.5-17.5); Mean Corpuscular Hemoglobin 31.5 pg (28.0-32.0); Mean Corpuscular Volume 91.0 fL (80.0-100.0); Nucleated Red Blood Cells % 0.0 %
[2024-08-29 07:17] LABS: Albumin 3.7 g/dL (3.2-4.8); Alkaline Phosphatase 75 U/L (46-116); Anion Gap 10 (5-15); BUN/Creatinine Ratio 25.0 (10.0-20.0); Calcium 10.1 mg/dL (8.7-10.4); Carbon Dioxide 28 mmol/L (20-31); Chloride 102 mmol/L (98-107); Potassium 3.8 mmol/L (3.5-5.1); Sodium 140 mmol/L (136-145); Total Protein 6.2 g/dL (5.7-8.2)
[2024-08-29 07:18] LABS: Bilirubin, Total 0.5 mg/dL (0.2-1.0)
[2024-08-29 07:27] LABS: Alanine Aminotransferase 43 U/L (7-40); Blood Urea Nitrogen 29 mg/dL (9-23); Glucose 106 mg/dL (74-106)
[2024-08-29 11:08] LABS: Hepatitis B Surface Antigen Negative (Negative); Hepatitis C Antibody Negative (Negative)
--- NOTE | 2024-08-29 16:28 | DVHPNRES ---
Progress Note Date Seen: Aug 29, 2024 Resident Creating Document: TITO ALLEN RESIDENT Medical Necessity Reason Pt with a Central, PICC or Fol: No Subjective Review of Systems Patient was seen and examined on the bedside. He is alert, oriented X3. Mentioned feeling well, no complaint of chest pain, shortness of breath, pain in the sternal incision site, leg swelling and pain. Patient is hemodynamically stable. Consulted social service assistant to arrange SNF for cardiac rehabilitation post CABG. Initial physiotherapy evaluation the patient was able to walk 25 ft and improved to X2, 50 feet today. Patient is not eligible for SNF for rehab. Spoke with the patient's family regarding arrangement of home health for physical therapy. Family mentioned right now there home arrangement is not suitable for the patient, will try to make arrangement for the patient and needs some time. Objective vital signs Vital Sign Date Time Temp Pulse Resp B/P (MAP) Pulse Ox O2 Delivery O2 Flow Rate FiO2 08/29/24 14:02 117/76 08/29/24 13:00 98.6 72 20 98 98.6 08/29/24 08:00 Room Air* 0 21 Total Intake and Output 08/28/24 08/28/24 08/29/24 14:59 22:59 06:59 Intake Total 500 ml 275 ml Output Total 650 ml Balance 500 ml -375 ml medications Current Medications Medications Dose Ordered Sig/Gisele Route Start Time Stop Time Status Last Admin Dose Admin Sodium Chloride 10 ml Q8HR IV 08/28/24 06:00 08/29/24 14:02 10 ML Enoxaparin Sodium 40 mg DAILY SC 08/28/24 10:00 08/29/24 08:40 40 MG Nitroglycerin 0.4 mg Q5MINP PRN SL 08/28/24 01:30 Morphine Sulfate 2 mg Q30M PRN IV 08/28/24 01:30 Aspirin 81 mg DAILY PO 08/28/24 10:00 08/29/24 08:38 81 MG Ergocalciferol 50,000 unit QWEEKLY PO 08/28/24 10:00 08/28/24 08:18 50,000 UNIT Pantoprazole Sodium 40 mg DAILY@0600 PO 08/29/24 06:00 08/29/24 06:19 40 MG Atorvastatin Calcium 40 mg HS PO 08/28/24 22:00 08/28/24 21:43 40 MG Metoprolol Tartrate 25 mg BID PO 08/28/24 10:00 08/29/24 08:39 25 MG Mupirocin 1 applic BID EACHNOSTRI 08/28/24 10:00 09/02/24 09:59 Polyethylene Glycol 17 gm DAILY PO 08/28/24 10:00 Zinc Sulfate 220 mg DAILY PO 08/28/24 10:00 08/29/24 08:38 220 MG Ascorbic Acid 500 mg BID PO 08/28/24 10:00 08/29/24 08:38 500 MG Bumetanide 1 mg TID PO 08/28/24 06:00 08/29/24 14:02 1 MG Multivitamins 1 tab DAILY PO 08/28/24 10:00 08/29/24 08:38 1 TAB Examination Physical examination: General Appearance: Alert, Oriented X3, Cooperative, No acute distress HEENT: Atraumatic, PERRLA, EOMI, Mucous membrane moist/pink Respiratory: Clear to auscultation, Normal air movement Cardiovascular: Regular rate, Normal S1, Normal S2, No murmurs, no chest wall tenderness, no sign of erythema or infection in the sternal incision site Abdominal: Normal bowel sounds, Soft, No tenderness, No hepatospenomegaly, No masses Extremities: Rt SVG incision mari, No clubbing, No cyanosis, No edema, Normal pulses, No tenderness/swelling Skin: No rashes, No breakdown, No significant lesion Neuro: Normal speech, Strength at 5/5 X4 ext, Normal tone, Sensation intact, Cranial nerves 3-12 NL, Reflexes 2+ Psych/Mental Status: Mental status NL, Mood NL laboratory and microbiology Laboratory Tests 08/29/24 06:06 Test 08/29/24 06:06 Range/Units Serum Glucose 106 74-106 mg/dL Microbiology Date/Time Source Procedure Growth Status 08/28/24 08:31 Nose MRSA Screen - Final Complete Labs and/or images reviewed: Labs reviewed by me, Image(s) reviewed by me Problem List/Assessment/Plan Problem List/Assessment/Plan Assessment and plan # CAD, triple-vessel disease, S/P CABG ( AVENDAÑO to LAD, SVG to OM/PDA) on 08/15/2024 at [facility], history of multiple stents x7 TRELL -continue aspirin 81 mg p.o. daily -Atorvastatin 40 mg p.o. q.h.s. -continue metoprolol tartrate 25 mg p.o. b.i.d. - Continue physical therapy. # Hypertensive heart disease -continue metoprolol tartrate 25 mg p.o. b.i.d. - Echo in [place] post CABG revealed normal EF 50% # prediabetes -HBA1c at [facility] 6.1 -cardiac diet # Hyperlipidemia -continue atorvastatin 40 mg p.o. q.h.s. # Obesity -patient was counseled about the effect of obesity on health, weight reduction, physical activity, healthy diet # Hepatitis-C -follow up outpatient with the primary care physician for further care Diet-cardiac diet, low carb diet Goals of care, Code status full code ; discussed with >15 minutes PUD prophylaxis: Pantoprazole DVT prophylaxis: Lovenox Plan discussed with Dr. Macedo Plan discussed with: Patient, Other My Orders My Orders Orders - TITO ALLEN Procedure Category Date Status Time * Feltmaker And Weigher CONS 08/28/24 Transmitted Consult 16:41 Date of Service: Aug 29, 2024 Billing Provider: ABDOULAYE MACEDO MD Common Visit Codes: [id number] INP/OBS CARE(HIGH) TITO ALLEN RESIDENT Aug 29, 2024 16:28 ABDOULAYE MACEDO MD Sep 04, 2024 20:02
[2024-08-30 05:29] VITALS: BP 110/70; PULSE 65; RESP 16; TEMP 97.7; O2SAT 100
[2024-08-30 08:00] VITALS: RESP 18
[2024-08-30 09:00] VITALS: BP 123/76; PULSE 80; RESP 17; TEMP 98.1; O2SAT 98
--- NOTE | 2024-08-30 11:08 | DVHINCON2 ---
Date Seen: Aug 30, 2024 Referring Physician MD Cecelia resident Reason for Consultation CAD, S/P CABG History of Present Illness This is an 83-year-old male patient who presents back to this facility status post triple-vessel CABG. The patient was initially seen at this facility, underwent a coronary angiogram on 08/09/2024 which revealed severe three-vessel coronary artery disease. The patient was subsequently transferred over to [facility] where he underwent a triple-vessel CABG on 08/15/2024. He has been transferred back to this facility for further care. Initial twelve lead electrocardiogram done at time of admission reveals normal sinus rhythm with multiple PVCs and lateral Q-waves. The patient denies any cardiac symptoms. Significant past medical history includes coronary artery disease status post multiple PTCA's x 7 TRELL (on ASA), congestive heart failure, myocardial infarction, hypertension, dyslipidemia, hepatitis-C, and obesity. The patient states he does not follow up with a social media developer in the outpatient setting and is being managed by his primary PCP Dr. Pugh. Past Medical History Past medical history reviewed. No other significant than mentioned above. Past Surgical History Triple-vessel CABG (AVENDAÑO to LAD, SVG to OM/PDA) on 08/15/24 at [facility] Multiple PTCAs Left LISA Family History: FH: lung cancer G8 FATHER Family History Family history reviewed. Social History Patient has a five pack-year history, quit smoking approximately 15 years ago denies any illicit drug use, denies any alcohol use Allergies: Coded Allergies: NO KNOWN ALLERGIES (Unverified , 09/15/22) Home Meds Reported Medications Zinc Sulfate (Zinc Sulfate) 220 Mg Tab, 220 MG PO, TAB 08/28/24 Polyethylene Glycol 3350 (Miralax) 17 Gm Pow, 17 GM PO BID, POW 08/28/24 Mupirocin (Pseudomonas Fluores (Mupirocin) 2 % Oin, 2 % EX, OIN 08/28/24 Multiple Vitamin (Multivitamins) Tab, 1 TAB PO DAILY, #90 TAB 3 Refills 08/28/24 Metoprolol Tartrate (Metoprolol Tartrate) 25 Mg Tab, 25 MG PO BID for 30 Days, MG 08/28/24 Lidocaine (Lidocaine Patch 5%) 5 % Pad, 4 % EX, PAD 08/28/24 Insulin Lispro (Insulin Lispro) 100 Unit/Ml Inj, IJ, INJ 08/28/24 Insulin Glargine-Yfgn (Insulin Glargine) 100 Unit/Ml Inj, 5 UNIT SC QAM, INJ 08/28/24 Famotidine (Famotidine) 20 Mg Tab, 40 MG PO BID for 30 Days, MG 08/28/24 Bumetanide (Bumetanide) 1 Mg Tab, 1 MG PO TID, TAB 08/28/24 Ascorbic Acid (Ascorbic Acid) 500 Mg Tab, 500 MG PO BID for 30 Days, MG 08/28/24 Acetaminophen (Acetaminophen) 325 Mg Tab, 1000 MG PO Q8HP PRN for MILD PAIN for 30 Days, MG 0 Refills 08/28/24 Ergocalciferol (Vitamin D) 50,000 Unit Cap, 1 CAP PO QWEEKLY 08/09/24 Atorvastatin Calcium (Lipitor) 40 Mg Tab, 40 MG PO DAILY, TAB 01/16/24 Aspirin (Aspir-81) 81 Mg Tab, 81 MG PO DAILY, TAB 01/16/24 Home Meds Home medications reviewed. Review of Systems Constitutional: No symptom reported Ears, Nose, & Throat: No symptom reported Eyes: No symptom reported Neurological: No symptoms reported Pulmonary/Respiratory: No symptoms reported Cardiovascular: No symptom reported Gastrointestinal: No symptom reported Genitourinary: No symptom reported Musculoskeletal: No symptom reported Skin: No symptom reported Psychiatric: No symptom reported Endocrine: No symptom reported Hematologic/Lymphatic: No symptom reported Vital Signs Vital Signs Date Time Temp Pulse Resp B/P (MAP) Pulse Ox O2 Delivery O2 Flow Rate FiO2 08/30/24 09:31 65 110/70 08/30/24 05:29 97.7 16 100 97.7 08/29/24 20:00 Nasal Cannula* 2 28 Physical Exam General Appearance: Cooperative. Well-developed. Well-nourished. No acute distress. Pulmonary/Respiratory: Clear, bilateral breaths sounds. Cardiovascular/Chest: Regular rate and rhythm. Peripheral Pulses: 2+ Radial (R). 2+ Radial (L). 2+ Pedal (R). 2+ Pedal (L) Abdominal Exam: Normal bowel sounds Ankle Exam: Negative ankle edema Lower extremities: Negative lower extremity edema Neuro/Mental Status: A/OX4, coherent. Thoughts/Psych: Normal thought pattern. Appropriate mood and affect. Good judgment and insight. Appearance: No acute distress. Skin Exam: Midline vertical incision on chest, scabbed. Skin warm and dry Labs/Diagnostic Data Labs Test 08/29/24 06:06 08/28/24 06:16 Range/Units White Blood Count 7.2 4.4-10.8 10^3/uL Red Blood Count 3.26 L 4.5-5.90 10^6/uL Hemoglobin 10.3 L 13.5-17.5 g/dL Hematocrit 29.7 L 41.0-53.0 % Mean Corpuscular Volume 91.0 80.0-100.0 fL Mean Corpuscular Hemoglobin 31.5 28.0-32.0 pg Mean Corpuscular Hemoglobin Concent 34.6 32.0-36.0 g/dL Red Cell Distribution Width 12.9 11.8-14.3 % Platelet Count 491 H 140-450 10^3/uL Mean Platelet Volume 7.2 6.9-10.8 fL Neutrophils (%) (Auto) 68.0 37.0-80.0 % Lymphocytes (%) (Auto) 18.0 10.0-50.0 % Monocytes (%) (Auto) 7.5 0.0-12.0 % Eosinophils (%) (Auto) 5.9 0.0-7.0 % Basophils (%) (Auto) 0.6 0.0-2.0 % Neutrophils # (Auto) 4.9 1.6-8.6 10 ^3/uL Lymphocytes # (Auto) 1.3 0.4-5.4 10 ^3/uL Monocytes # (Auto) 0.5 0-1.3 10 ^3/uL Eosinophils # (Auto) 0.4 0-0.8 10 ^3/uL Basophils # (Auto) 0 0-0.2 10 ^3/uL Nucleated Red Blood Cells 0.0 % Sodium Level 140 136-145 mmol/L Potassium Level 3.8 3.5-5.1 mmol/L Chloride Level 102 98-107 mmol/L Carbon Dioxide Level 28 20-31 mmol/L Anion Gap 10 5-15 Blood Urea Nitrogen 29 H 9-23 mg/dL Creatinine 1.16 0.700-1.30 mg/dL Glomerular Filtration Rate Calc 63 >90 mL/min BUN/Creatinine Ratio 25.0 H 10.0-20.0 Serum Glucose 106 74-106 mg/dL Calcium Level 10.1 8.7-10.4 mg/dL Total Bilirubin 0.5 0.2-1.0 mg/dL Aspartate Amino Transferase (AST) 30 13-40 U/L Alanine Aminotransferase (ALT) 43 H 7-40 U/L Alkaline Phosphatase 75 46-116 U/L Total Protein 6.2 5.7-8.2 g/dL Albumin 3.7 3.2-4.8 g/dL Platelet Estimate Increased Magnesium Level 2.3 1.6-2.6 mg/dL Vitamin B12 Level 1139 H 211-911 pg/mL Vitamin D 25-Hydroxy 81.7 30.0-100 ng/mL Folic Acid 12.39 >5.38 ng/mL Thyroid Stimulating Hormone (TSH) 9.35 H 0.55-4.78 uIU/mL Hepatitis B Surface Antigen Negative Negative Hepatitis C Antibody Negative Negative Microbiology Date/Time Source Procedure Growth Status 08/28/24 08:31 Nose MRSA Screen - Final Complete Assessment Severe triple-vessel coronary artery disease status post triple-vessel CABG Coronary artery disease s/p multiple PTCA's X 7 TRELL (on ASA) Chronic compensated HFrEF, NYHA class II Hypertension History myocardial infarction Dyslipidemia Hepatitis-C History of tobacco use Obesity Plan/Recommendation We will continue with the following plan/recommendations (Dr. Moncada): Case discussed with . Transthoracic echocardiogram from 08/09/2024 reveals EF 40% with grade 1 diastolic dysfunction. Initiate guideline directed medical therapy for CHF as tolerated. Add MRA (spironolactone) with stable BP and creatinine function. Continue single antiplatelet therapy and lipid- lowering agent. Patient to get up with physical therapy as tolerated. Patient able to use incentive spirometer at bedside and reached 2000mL. Patient noted to have frequent PVCs on equipment monitor phototypesetting. We will order magnesium level and replenish as needed. Continue with close cardiac surveillance and notify cardiology team for any ECG changes. Thank you for allowing us to care for this patient. Please call with any questions or concerns. Critical care time spent: 44 minutes This medical document was created using an electronic medical record system with voice recognition software and computerized dictation system. Although this document has been carefully reviewed, there might still be some phonetic and typographical errors. Occasional wrong-word or ``sound-alike substitutions may have occurred due to the inherent limitations of voice recognition software. These areas are purely typographical due to imperfections of the software programs and do not reflect any compromise in the patient's medical care. Please read the chart carefully and recognize, using context, where these substitutions have occurred. Plan discussed with: Patient NYHA Physical activity limitations: Class2(Slight)fatigue,sob (palpitatns, angina w activityv) Date of Service: Aug 30, 2024 Billing Provider: LYNDA CARLISLE Cardiology Common Codes: [id number] INP/OBS CARE (High) Cardiology Consultation Codes: [id number] CONSULT <45MIN LYNDA CARLISLE Aug 30, 2024 11:08
[2024-08-30 13:00] VITALS: BP 115/76; PULSE 69; RESP 18; TEMP 97.8; O2SAT 98
[2024-08-30 17:00] VITALS: BP 103/62; PULSE 71; RESP 17; TEMP 98; O2SAT 96
--- NOTE | 2024-08-30 17:44 | DVHPNRES ---
Progress Note Date Seen: Aug 30, 2024 Resident Creating Document: TITO ALLEN RESIDENT Medical Necessity Reason Pt with a Central, PICC or Fol: No Subjective Review of Systems 08/29/24 : Patient was seen and examined on the bedside. He is alert, oriented X3. Mentioned feeling well, no complaint of chest pain, shortness of breath, pain in the sternal incision site, leg swelling and pain. Patient is hemodynamically stable. Consulted medical social consultant to arrange SNF for cardiac rehabilitation post CABG. Initial physiotherapy evaluation the patient was able to walk 25 ft and improved to X2, 50 feet today. Patient is not eligible for SNF for rehab. Spoke with the patient's family regarding arrangement of home health for physical therapy. Family mentioned right now there home arrangement is not suitable for the patient, will try to make arrangement for the patient and needs some time. 08/30/24: Patient was seen and examined on the bedside. He is alert, oriented X3 and on room air . Feeling well and no active complaint at this time. Family does not want home health for PT and looking for SNF by themselves without an MD order. Objective vital signs Vital Sign Date Time Temp Pulse Resp B/P (MAP) Pulse Ox O2 Delivery O2 Flow Rate FiO2 08/30/24 13:37 115/76 08/30/24 13:00 97.8 69 18 98 97.8 08/30/24 08:00 Room Air* 0 21 Total Intake and Output 08/29/24 08/29/24 08/30/24 15:00 23:00 07:00 Intake Total 400 ml 300 ml Output Total 350 ml 1600 ml Balance -350 ml -1200 ml 300 ml medications Current Medications Medications Dose Ordered Sig/Gisele Route Start Time Stop Time Status Last Admin Dose Admin Sodium Chloride 10 ml Q8HR IV 08/28/24 06:00 08/30/24 13:43 10 ML Enoxaparin Sodium 40 mg DAILY SC 08/28/24 10:00 08/30/24 09:32 40 MG Nitroglycerin 0.4 mg Q5MINP PRN SL 08/28/24 01:30 Morphine Sulfate 2 mg Q30M PRN IV 08/28/24 01:30 Aspirin 81 mg DAILY PO 08/28/24 10:00 08/30/24 09:29 81 MG Ergocalciferol 50,000 unit QWEEKLY PO 08/28/24 10:00 08/28/24 08:18 50,000 UNIT Pantoprazole Sodium 40 mg DAILY@0600 PO 08/29/24 06:00 08/30/24 05:52 40 MG Mupirocin 1 applic BID EACHNOSTRI 08/28/24 10:00 09/02/24 09:59 Polyethylene Glycol 17 gm DAILY PO 08/28/24 10:00 Zinc Sulfate 220 mg DAILY PO 08/28/24 10:00 08/30/24 09:29 220 MG Ascorbic Acid 500 mg BID PO 08/28/24 10:00 08/30/24 09:29 500 MG Bumetanide 1 mg TID PO 08/28/24 06:00 08/30/24 13:37 1 MG Multivitamins 1 tab DAILY PO 08/28/24 10:00 08/30/24 09:29 1 TAB Atorvastatin Calcium 80 mg HS PO 08/30/24 22:00 Metoprolol Succinate 25 mg DAILY PO 08/31/24 10:00 Sacubitril/ Valsartan 1 tab BID PO 08/30/24 22:00 Empaglifozin 10 mg DAILY PO 08/31/24 10:00 Examination Physical examination: General Appearance: Alert, Oriented X3, Cooperative, No acute distress HEENT: Atraumatic, PERRLA, EOMI, Mucous membrane moist/pink Respiratory: Clear to auscultation, Normal air movement Cardiovascular: Regular rate, Normal S1, Normal S2, No murmurs, no chest wall tenderness, no sign of erythema or infection in the sternal incision site Abdominal: Normal bowel sounds, Soft, No tenderness, No hepatospenomegaly, No masses Extremities: Rt SVG incision mari, No clubbing, No cyanosis, No edema, Normal pulses, No tenderness/swelling Skin: No rashes, No breakdown, No significant lesion Neuro: Normal speech, Strength at 5/5 X4 ext, Normal tone, Sensation intact, Cranial nerves 3-12 NL, Reflexes 2+ Psych/Mental Status: Mental status NL, Mood N laboratory and microbiology Laboratory Tests 08/29/24 06:06 Test 08/29/24 06:06 Range/Units Serum Glucose 106 74-106 mg/dL Microbiology Date/Time Source Procedure Growth Status 08/28/24 08:31 Nose MRSA Screen - Final Complete Labs and/or images reviewed: Labs reviewed by me, Image(s) reviewed by me Problem List/Assessment/Plan Problem List/Assessment/Plan Assessment and plan # CAD, triple-vessel disease, S/P CABG ( AVENDAÑO to LAD, SVG to OM/PDA) on 08/15/2024 at [facility], history of multiple stents x7 TRELL -continue aspirin 81 mg p.o. daily -Atorvastatin 40 mg p.o. q.h.s. -continue metoprolol tartrate 25 mg p.o. b.i.d. - Continue physical therapy. # Hypertensive heart disease -continue metoprolol tartrate 25 mg p.o. b.i.d. - Echo in [place] post CABG revealed normal EF 50% # prediabetes -HBA1c at [facility] 6.1 -cardiac diet # Hyperlipidemia -continue atorvastatin 40 mg p.o. q.h.s. # Obesity -patient was counseled about the effect of obesity on health, weight reduction, physical activity, healthy diet # Hepatitis-C -follow up outpatient with the primary care physician for further care Diet-cardiac diet, low carb diet Goals of care, Code status full code ; discussed with >15 minutes PUD prophylaxis: Pantoprazole DVT prophylaxis: Lovenox Plan discussed with Dr. Hicks Plan discussed with: Patient, Other (RN) My Orders My Orders Orders - TITO ALLEN Procedure Category Date Status Time * Foreign Service Teacher CONS 08/30/24 Transmitted Consult Dietary Evaluation Review Comments: 1. Vit D 81, Toribio down Vit D supplementation 2. GFR 63, consider a 0.8-1.0 g/kg protein (60-75g) for preventing uremic syndrome, 3. recommend CCHO-60g Protein 60-75g Cardiac Diet, avoid cafffeine 4. Provide DM education handbook 5. Refer to Yoly Kirkland for DM education Expected Outcomes/Goals: normal blood sugar lesson uremic syndrome Wt management upon D/C Date of Service: Aug 30, 2024 Billing Provider: ABDOULAYE HICKS MD Common Visit Codes: [id number] INP/OBS CARE(HIGH) TITO ALLEN RESIDENT Aug 30, 2024 17:44 ABDOULAYE HICKS MD Sep 04, 2024 20:12
[2024-08-30 20:00] VITALS: RESP 18
[2024-08-30] MEDS: SACUBITRIL-VALSARTAN 24mg/26mg TAB PO SCH (22:09)
[2024-08-30] MEDS: ATORVASTATIN 20 MG TAB PO SCH (22:09)
[2024-08-31 07:57] LABS: Hemoglobin 11.6 g/dL (13.5-17.5); Mean Corpuscular Hemoglobin 31.4 pg (28.0-32.0); Nucleated Red Blood Cells % 0.1 %
[2024-08-31 07:59] LABS: Hematocrit 33.3 % (41.0-53.0); Mean Corpuscular Volume 90.6 fL (80.0-100.0)
[2024-08-31 08:09] LABS: Chloride 102 mmol/L (98-107); Sodium 139 mmol/L (136-145)
[2024-08-31 08:10] LABS: Anion Gap 10 (5-15); Carbon Dioxide 27 mmol/L (20-31)
[2024-08-31 08:11] LABS: Calcium 10.4 mg/dL (8.7-10.4); Potassium 3.5 mmol/L (3.5-5.1)
[2024-08-31 08:15] LABS: BUN/Creatinine Ratio 26.3 (10.0-20.0)
[2024-08-31 08:20] LABS: Blood Urea Nitrogen 30 mg/dL (9-23); Glucose 121 mg/dL (74-106)
[2024-08-31 09:00] VITALS: BP 98/67; PULSE 82; RESP 17; TEMP 98; O2SAT 97
--- NOTE | 2024-08-31 10:29 | DVH ---
CHEST RADIOGRAPH Indication: CP Technique: Single frontal view of the chest was obtained Comparison: XY CHEST XRAY 1 VIEW on DOS: 08/28/24, XY CHEST PORTABLE on DOS: 08/09/24, XY CHEST PORTABLE on DOS: 09/15/22, XY CHEST PORTABLE on DOS: 08/09/24 FINDINGS: Lines and Tubes: None Lungs: Increased interstitial prominence Pleura: No effusion. No pneumothorax. Cardiomediastinal contours: Unremarkable Bones: Unremarkable IMPRESSION: Viral pneumonia or pulmonary vascular congestion
[2024-08-31] MEDS: EMPAGLIFLOZIN 10 MG TAB PO SCH (11:20)
[2024-08-31] MEDS: METOPROLOL SUCCINATE XL 50 MG TAB PO SCH (11:22)
[2024-08-31 13:00] VITALS: BP 85/60; PULSE 89; RESP 17; TEMP 97.7; O2SAT 97
[2024-08-31 17:00] VITALS: BP 112/83; PULSE 77; RESP 18; TEMP 97.8; O2SAT 99
--- NOTE | 2024-08-31 18:46 | DVHDSRES ---
Discharge Summary Date of Admission Resident Creating Document: TITO ALLEN RESIDENT Aug 27, 2024 at 22:24 Date of Discharge: Aug 31, 2024 Admitting Diagnosis S/P CABG Wounds: Surgical wound ,sternotomy incision, and right SVG incision Labs/Diagnostic Data: Laboratory Results Test 08/31/24 07:11 08/30/24 13:42 08/29/24 06:06 08/28/24 06:16 White Blood Count 7.3 10^3/uL (4.4-10.8) Red Blood Count 3.68 10^6/uL (4.5-5.90) Hemoglobin 11.6 g/dL (13.5-17.5) Hematocrit 33.3 % (41.0-53.0) Mean Corpuscular Volume 90.6 fL (80.0-100.0) Mean Corpuscular Hemoglobin 31.4 pg (28.0-32.0) Mean Corpuscular Hemoglobin Concent 34.7 g/dL (32.0-36.0) Red Cell Distribution Width 13.1 % (11.8-14.3) Platelet Count 481 10^3/uL (140-450) Mean Platelet Volume 7.5 fL (6.9-10.8) Neutrophils (%) (Auto) 69.0 % (37.0-80.0) Lymphocytes (%) (Auto) 17.5 % (10.0-50.0) Monocytes (%) (Auto) 7.5 % (0.0-12.0) Eosinophils (%) (Auto) 5.5 % (0.0-7.0) Basophils (%) (Auto) 0.5 % (0.0-2.0) Neutrophils # (Auto) 5.0 10 ^3/uL (1.6-8.6) Lymphocytes # (Auto) 1.3 10 ^3/uL (0.4-5.4) Monocytes # (Auto) 0.5 10 ^3/uL (0-1.3) Eosinophils # (Auto) 0.4 10 ^3/uL (0-0.8) Basophils # (Auto) 0 10 ^3/uL (0-0.2) Nucleated Red Blood Cells 0.1 % Sodium Level 139 mmol/L (136-145) Potassium Level 3.5 mmol/L (3.5-5.1) Chloride Level 102 mmol/L (98-107) Carbon Dioxide Level 27 mmol/L (20-31) Anion Gap 10 (5-15) Blood Urea Nitrogen 30 mg/dL (9-23) Creatinine 1.14 mg/dL (0.700-1.30) Glomerular Filtration Rate Calc 64 mL/min (>90) BUN/Creatinine Ratio 26.3 (10.0-20.0) Serum Glucose 121 mg/dL (74-106) Calcium Level 10.4 mg/dL (8.7-10.4) Magnesium Level 2.3 mg/dL (1.6-2.6) Total Bilirubin 0.5 mg/dL (0.2-1.0) Aspartate Amino Transferase (AST) 30 U/L (13-40) Alanine Aminotransferase (ALT) 43 U/L (7-40) Alkaline Phosphatase 75 U/L (46-116) Total Protein 6.2 g/dL (5.7-8.2) Albumin 3.7 g/dL (3.2-4.8) Platelet Estimate Increased Vitamin B12 Level 1139 pg/mL (211-911) Vitamin D 25-Hydroxy 81.7 ng/mL (30.0-100) Folic Acid 12.39 ng/mL (>5.38) Thyroid Stimulating Hormone (TSH) 9.35 uIU/mL (0.55-4.78) Hepatitis B Surface Antigen Negative (Negative) Hepatitis C Antibody Negative (Negative) Other Laboratory Tests 08/31/24 07:11 Brief Hx & Hospital Course: Patient is 83 years old male with a past medical history of CAD, S/P multiple PTCAs x7 TRELL, h/o myocardial infarction, hypertension, dyslipidemia, hepatitis- C, and obesity was admitted at [facility] on 08/09/2024 due to acute chest pain and patient was found to have acute coronary syndrome NSTEMI Type 1, Initial twelve lead electrocardiogram reveals sinus rhythm with PVCs and lateral Q-waves, elevated troponin which Peaked to >8k ng/L, Echo revealed LVEF 40% with a hypokinetic apex. Patient underwent angiogram with left heart catheterization which revealed severe three-vessel coronary artery disease. Patient was transferred to [facility] on 08/11/2024 for CABG. Patient had CABG ( AVENDAÑO to LAD, SVG to OM/PDA) done at [facility] on 08/15/2024. Patient's post CABG hospital course was complicated by atrial fibrillation with a rapid ventricular rate, reverted to sinus rhythm as per [facility] documentation. Patient was transferred back to [facility] for further care. After admission patient was mentioned feeling well, no complaint of chest pain, shortness of breath, or pain in the sternal incision site, leg swelling or pain. Patient waas hemodynamically stable. Patient was continuing inpatient physical therapy. On 08/29/24 Consulted social media manager to arrange SNF for cardiac rehabilitation post CABG. Initial physiotherapy evaluation the patient was able to walk 25 ft and improved to X2, 50 feet today. Patient was not eligible for SNF for rehab. Spoke with the patient's family regarding arrangement of home health for physical therapy. Family mentioned right now there home arrangement was not suitable for the patient, will try to make arrangement for the patient and needs some time. On 08/30/24. Family does not want home health for PT and looking for SNF by themselves without an MD order. Patient is being discharged to SNF today and he will be transferred when bed will be available. Physical examination: General Appearance: Alert, Oriented X3, Cooperative, No acute distress HEENT: Atraumatic, PERRLA, EOMI, Mucous membrane moist/pink Respiratory: Clear to auscultation, Normal air movement Cardiovascular: Regular rate, Normal S1, Normal S2, No murmurs, no chest wall tenderness, no sign of erythema or infection in the sternal incision site Abdominal: Normal bowel sounds, Soft, No tenderness, No hepatospenomegaly, No masses Extremities: Rt SVG incision mari, No clubbing, No cyanosis, No edema, Normal pulses, No tenderness/swelling Skin: No rashes, No breakdown, No significant lesion Neuro: Normal speech, Strength at 5/5 X4 ext, Normal tone, Sensation intact, Cranial nerves 3-12 NL, Reflexes 2+ Psych/Mental Status: Mental status NL, Mood N Consults/Reason for consult No consultation was done Condition at Discharge: Stable Final Diagnosis/Problems List # CAD, triple-vessel disease, S/P CABG ( AVENDAÑO to LAD, SVG to OM/PDA) on 08/15/2024 at [facility], history of multiple stents x7 TRELL # Hypertensive heart disease # Prediabetes, HbA1C 6.1 # Hyperlipidemia # Obesity, BMI 32.0 kg/m2 # Hepatitis-C Discharge Disposition: Care Home Facility Discharge Instruct/Medications Diet: Cardiac 2g Na,low cholest Activity: No Restrictions, As Tolerated Follow Up/Referral: Follow up with PCP as per SNF Medications: As per EMR Scheduled Ascorbic Acid (Ascorbic Acid), 500 MG PO BID, (Reported) Aspirin (Aspir-81), 81 MG PO DAILY, (Reported) Atorvastatin Calcium (Lipitor), 40 MG PO DAILY, (Reported) Bumetanide (Bumetanide), 1 MG PO TID, (Reported) Ergocalciferol (Vitamin D), 1 CAP PO QWEEKLY, (Reported) Famotidine (Famotidine), 40 MG PO BID, (Reported) Insulin Glargine-Yfgn (Insulin Glargine), 5 UNIT SC QAM, (Reported) Metoprolol Tartrate (Metoprolol Tartrate), 25 MG PO BID, (Reported) Multiple Vitamin (Multivitamins), 1 TAB PO DAILY, (Reported) Polyethylene Glycol 3350 (Miralax), 17 GM PO BID, (Reported) Scheduled PRN Acetaminophen (Acetaminophen), 1,000 MG PO Q8HP PRN for MILD PAIN, (Reported) Miscellaneous Medications Insulin Lispro (Insulin Lispro), Unknown Dose IJ, (Reported) Lidocaine (Lidocaine Patch 5%), 4 % EX, (Reported) Mupirocin (Pseudomonas Fluores (Mupirocin), 2 % EX, (Reported) Zinc Sulfate (Zinc Sulfate), 220 MG PO, (Reported) Discharge Statement: "Patient was advised to return to the ER or call 911 if any headaches, dizziness, shortness of breath, chest pain, abdominal pain, bleeding, fevers, or worsening of medical condition. Patient was counseled about treatment plan, medications, possible side effects, patientverbalized understanding. All questions were answered to the best of my ability. This discharge took greater then 30 minutes in planning, reviewing documentation, counseling the patient, and discussing with other team members." ASSESSMENT ASSESSMENT Assessment S/P CABG Date of Service: Aug 31, 2024 Billing Provider: ABDOULAYE MACEDO MD Common Visit Codes: [id number] DISCH DAY >30min TITO ALLEN RESIDENT Aug 31, 2024 18:46 ABDOULAYE MACEDO MD Sep 06, 2024 13:31
[2024-08-31 21:00] VITALS: BP 104/65; PULSE 75; RESP 16; TEMP 98.3; O2SAT 95
[2024-09-01 01:00] VITALS: BP 117/80; PULSE 72; RESP 16; TEMP 97.7; O2SAT 94
[2024-09-01 05:00] VITALS: BP 117/96; PULSE 83; RESP 17; TEMP 97.1; O2SAT 97
[2024-09-01 09:00] VITALS: BP 109/73; PULSE 75; RESP 18; TEMP 97.9; O2SAT 100
[2024-09-01 12:50] VITALS: BP 98/61; PULSE 87; RESP 17; TEMP 97.8; O2SAT 95
[2024-09-01 16:45] VITALS: BP 101/65; PULSE 89; RESP 17; TEMP 98.7; O2SAT 96
--- NOTE | 2024-09-01 18:12 | DVHPN2 ---
Subjective I am assuming the care of the patient from today onwards who was under the care of the hospitalist team. 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 Medications Current Medications Medications Dose Ordered Sig/Gisele Route Start Time Stop Time Status Last Admin Dose Admin Sodium Chloride 10 ml Q8HR IV 08/28/24 06:00 09/01/24 15:35 10 ML Enoxaparin Sodium 40 mg DAILY SC 08/28/24 10:00 09/01/24 10:04 40 MG Nitroglycerin 0.4 mg Q5MINP PRN SL 08/28/24 01:30 Morphine Sulfate 2 mg Q30M PRN IV 08/28/24 01:30 Aspirin 81 mg DAILY PO 08/28/24 10:00 09/01/24 10:03 81 MG Ergocalciferol 50,000 unit QWEEKLY PO 08/28/24 10:00 08/28/24 08:18 50,000 UNIT Pantoprazole Sodium 40 mg DAILY@0600 PO 08/29/24 06:00 09/01/24 06:00 40 MG Mupirocin 1 applic BID EACHNOSTRI 08/28/24 10:00 09/02/24 09:59 Polyethylene Glycol 17 gm DAILY PO 08/28/24 10:00 Zinc Sulfate 220 mg DAILY PO 08/28/24 10:00 09/01/24 10:04 220 MG Ascorbic Acid 500 mg BID PO 08/28/24 10:00 09/01/24 10:04 500 MG Bumetanide 1 mg TID PO 08/28/24 06:00 09/01/24 15:35 1 MG Multivitamins 1 tab DAILY PO 08/28/24 10:00 09/01/24 10:04 1 TAB Atorvastatin Calcium 80 mg HS PO 08/30/24 22:00 08/31/24 21:55 80 MG Metoprolol Succinate 25 mg DAILY PO 08/31/24 10:00 09/01/24 10:07 25 MG Sacubitril/ Valsartan 1 tab BID PO 08/30/24 22:00 09/01/24 10:04 1 TAB Empaglifozin 10 mg DAILY PO 08/31/24 10:00 09/01/24 10:04 10 MG Laboratory Results Laboratory Tests 08/31/24 07:11 Microbiology Microbiology Date/Time Source Procedure Growth Status 08/28/24 08:31 Nose MRSA Screen - Final Complete Assessment/Plan Assessment/Plan 83-year-old male with a known history of coronary artery disease status post multiple stents in the past, hypertension, dyslipidemia, chronic tobacco use disorder, morbid obesity class I, who was admitted here on August 09 for NSTEMI type 1 found to have triple-vessel disease. Patient was transferred to higher level of care. Patient underwent CABG triple-vessel surgery at [place]. Patient was transferred back. Currently we are waiting for the bed availability in the SNF. 1. Coronary artery disease status post triple-vessel CABG 2. Chronic congestive heart failure with systolic dysfunction currently compensated 3. Hypertension 4. Dyslipidemia 5. Hepatitis-C 6. History of tobacco use disorder 7. Morbid obesity classI -continue current medications, physical therapy evaluation and treatment, discharge plan to [facility] facility. Plan discussed with: Patient, Spouse Date of Service: Sep 01, 2024 Billing Provider: MARK AMOS MD Common Visit Codes: [id number] INP/OBS CARE(MOD) MARK AMOS MD Sep 01, 2024 18:12
--- NOTE | 2024-09-01 18:21 | DVHPN2 ---
Subjective Denies chest pain No cardiac events reported Changes from previous H/P or p: No Changes Objective Vitals Vital Signs Date Time Temp Pulse Resp B/P (MAP) Pulse Ox O2 Delivery O2 Flow Rate FiO2 09/01/24 16:45 98.7 89 17 101/65 (77) 96 98.7 09/01/24 08:00 Room Air* 0 21 Intake/Output Intake and Output 09/01/24 07:00 Intake Total 1650 ml Balance 1650 ml Intake Oral 1650 ml # Voids 5 # Bowel Movements 1 General Appearance: Alert Cardiovascular: Regular rate, Normal S1, Normal S2 Medications Current Medications Medications Dose Ordered Sig/Gisele Route Start Time Stop Time Status Last Admin Dose Admin Sodium Chloride 10 ml Q8HR IV 08/28/24 06:00 09/01/24 15:35 10 ML Enoxaparin Sodium 40 mg DAILY SC 08/28/24 10:00 09/01/24 10:04 40 MG Nitroglycerin 0.4 mg Q5MINP PRN SL 08/28/24 01:30 Morphine Sulfate 2 mg Q30M PRN IV 08/28/24 01:30 Aspirin 81 mg DAILY PO 08/28/24 10:00 09/01/24 10:03 81 MG Ergocalciferol 50,000 unit QWEEKLY PO 08/28/24 10:00 08/28/24 08:18 50,000 UNIT Pantoprazole Sodium 40 mg DAILY@0600 PO 08/29/24 06:00 09/01/24 06:00 40 MG Mupirocin 1 applic BID EACHNOSTRI 08/28/24 10:00 09/02/24 09:59 Polyethylene Glycol 17 gm DAILY PO 08/28/24 10:00 Zinc Sulfate 220 mg DAILY PO 08/28/24 10:00 09/01/24 10:04 220 MG Ascorbic Acid 500 mg BID PO 08/28/24 10:00 09/01/24 10:04 500 MG Bumetanide 1 mg TID PO 08/28/24 06:00 09/01/24 15:35 1 MG Multivitamins 1 tab DAILY PO 08/28/24 10:00 09/01/24 10:04 1 TAB Atorvastatin Calcium 80 mg HS PO 08/30/24 22:00 08/31/24 21:55 80 MG Metoprolol Succinate 25 mg DAILY PO 08/31/24 10:00 09/01/24 10:07 25 MG Sacubitril/ Valsartan 1 tab BID PO 08/30/24 22:00 09/01/24 10:04 1 TAB Empaglifozin 10 mg DAILY PO 08/31/24 10:00 09/01/24 10:04 10 MG Laboratory Results Laboratory Tests 08/31/24 07:11 Microbiology Microbiology Date/Time Source Procedure Growth Status 08/28/24 08:31 Nose MRSA Screen - Final Complete Assessment/Plan Assessment/Plan Assessment Severe triple-vessel coronary artery disease status post triple-vessel CABG Coronary artery disease s/p multiple PTCA's X 7 TRELL (on ASA) Chronic compensated HFrEF, NYHA class II Hypertension History myocardial infarction Dyslipidemia Hepatitis-C History of tobacco use Obesity Plan/Recommendation We will continue with the following plan/recommendations (Dr. Moncada): 09/01/24-- BP remains soft. Add MRA spironolactone once BP stabilized. Case discussed with . Transthoracic echocardiogram from 08/09/2024 reveals EF 40% with grade 1 diastolic dysfunction. Initiate guideline directed medical therapy for CHF as tolerated. Add MRA (spironolactone) with stable BP and creatinine function. Continue single antiplatelet therapy and lipid- lowering agent. Patient to get up with physical therapy as tolerated. Patient able to use incentive spirometer at bedside and reached 2000mL. Patient noted to have frequent PVCs on patient monitor. We will order magnesium level and replenish as needed. Continue with close cardiac surveillance and notify cardiology team for any ECG changes. Thank you for allowing us to care for this patient. Please call with any questions or concerns. Critical care time spent: 44 minutes This medical document was created using an electronic medical record system with voice recognition software and computerized dictation system. Although this document has been carefully reviewed, there might still be some phonetic and typographical errors. Occasional wrong-word or ``sound-alike substitutions may have occurred due to the inherent limitations of voice recognition software. These areas are purely typographical due to imperfections of the software programs and do not reflect any compromise in the patient's medical care. Please read the chart carefully and recognize, using context, where these substitutions have occurred. Plan discussed with: Patient Plan discussed with: Patient Date of Service: Sep 01, 2024 Billing Provider: MERCY MONCADA Sr., MD Common Visit Codes: CONSULT ONLY KRISTEN BAILEY [facility] Sep 01, 2024 18:21
[2024-09-01 21:00] VITALS: BP 98/60; PULSE 82; RESP 16; TEMP 97.8; O2SAT 96
[2024-09-02] VITALS (8 sets, daily range): BP systolic 97–123; BP diastolic 56–73; PULSE 82–94; RESP 16–18; TEMP 97.7–98.1; O2SAT 95–97
[2024-09-02 12:46] LABS: Base Excess -1.7 mmol/L (-2.0-3.0)
--- NOTE | 2024-09-02 14:58 | DVHPN2 ---
Subjective Overnight events noted. Patient's daughter took the patient in wheelchair outside upon return he became unresponsive with a duodenal any incontinence suspected vasovagal syndrome. Currently patient is fully awake alert oriented in follow commands there is no focal deficit. 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 General Appearance: Alert Cardiovascular: Regular rate, Normal S1, Normal S2 Medications Current Medications Medications Dose Ordered Sig/Gisele Route Start Time Stop Time Status Last Admin Dose Admin Sodium Chloride 10 ml Q8HR IV 08/28/24 06:00 09/02/24 14:01 10 ML Enoxaparin Sodium 40 mg DAILY SC 08/28/24 10:00 09/02/24 09:54 40 MG Nitroglycerin 0.4 mg Q5MINP PRN SL 08/28/24 01:30 Morphine Sulfate 2 mg Q30M PRN IV 08/28/24 01:30 Aspirin 81 mg DAILY PO 08/28/24 10:00 09/02/24 09:54 81 MG Ergocalciferol 50,000 unit QWEEKLY PO 08/28/24 10:00 08/28/24 08:18 50,000 UNIT Pantoprazole Sodium 40 mg DAILY@0600 PO 08/29/24 06:00 09/02/24 05:26 40 MG Polyethylene Glycol 17 gm DAILY PO 08/28/24 10:00 Zinc Sulfate 220 mg DAILY PO 08/28/24 10:00 09/02/24 09:54 220 MG Ascorbic Acid 500 mg BID PO 08/28/24 10:00 09/02/24 09:54 500 MG Bumetanide 1 mg TID PO 08/28/24 06:00 09/02/24 05:26 1 MG Multivitamins 1 tab DAILY PO 08/28/24 10:00 09/02/24 09:54 1 TAB Atorvastatin Calcium 80 mg HS PO 08/30/24 22:00 09/01/24 21:48 80 MG Metoprolol Succinate 25 mg DAILY PO 08/31/24 10:00 09/01/24 10:07 25 MG Sacubitril/ Valsartan 1 tab BID PO 08/30/24 22:00 09/02/24 09:54 1 TAB Empaglifozin 10 mg DAILY PO 08/31/24 10:00 09/02/24 09:54 10 MG Laboratory Results Laboratory Tests 08/31/24 07:11 Blood Gas Results Test 09/02/24 12:34 Arterial Blood pH 7.490 (7.350-7.450) FiO2 % 28.0 Microbiology Microbiology Date/Time Source Procedure Growth Status 08/28/24 08:31 Nose MRSA Screen - Final Complete Assessment/Plan Assessment/Plan 83-year-old male with a known history of coronary artery disease status post multiple stents in the past, hypertension, dyslipidemia, chronic tobacco use disorder, morbid obesity class I, who was admitted here on August 09 for NSTEMI type 1 found to have triple-vessel disease. Patient was transferred to higher level of care. Patient underwent CABG triple-vessel surgery at [place]. Patient was transferred back. Currently we are waiting for the bed availability in the SNF. 1. Coronary artery disease status post triple-vessel CABG 2. Chronic congestive heart failure with systolic dysfunction currently compensated 3. Hypertension 4. Dyslipidemia 5. Hepatitis-C 6. History of tobacco use disorder 7. Episode of vasovagal syndrome on09/02 -continue current medications, physical therapy evaluation and treatment, discharge plan to detention facility. Plan discussed with: Patient, Daughter My Orders Orders - MARK AMOS MD Procedure Category Date Status Time Transfer Orders XFER 09/02/24 Transmitted 12:40 Date of Service: Sep 02, 2024 Billing Provider: MARK AMOS MD Common Visit Codes: [id number] INP/OBS CARE(MOD) MARK AMOS MD Sep 02, 2024 14:58
--- NOTE | 2024-09-02 20:54 | DVHPN2 ---
Subjective Denies chest pain No cardiac events reported Changes from previous H/P or p: No Changes Objective Vitals Vital Signs Date Time Temp Pulse Resp B/P (MAP) Pulse Ox O2 Delivery O2 Flow Rate FiO2 09/02/24 17:00 97.7 85 18 116/73 (87) 97 97.7 09/02/24 08:00 Room Air* 0 21 Intake/Output Intake and Output 09/02/24 07:00 Intake Total 1440 ml Output Total 1050 ml Balance 390 ml Intake Oral 1440 ml Output Urine Total 1050 ml # Bowel Movements 2 General Appearance: Alert Cardiovascular: Regular rate, Normal S1, Normal S2 Medications Current Medications Medications Dose Ordered Sig/Gisele Route Start Time Stop Time Status Last Admin Dose Admin Sodium Chloride 10 ml Q8HR IV 08/28/24 06:00 09/02/24 14:01 10 ML Enoxaparin Sodium 40 mg DAILY SC 08/28/24 10:00 09/02/24 09:54 40 MG Nitroglycerin 0.4 mg Q5MINP PRN SL 08/28/24 01:30 Morphine Sulfate 2 mg Q30M PRN IV 08/28/24 01:30 Aspirin 81 mg DAILY PO 08/28/24 10:00 09/02/24 09:54 81 MG Ergocalciferol 50,000 unit QWEEKLY PO 08/28/24 10:00 08/28/24 08:18 50,000 UNIT Pantoprazole Sodium 40 mg DAILY@0600 PO 08/29/24 06:00 09/02/24 05:26 40 MG Polyethylene Glycol 17 gm DAILY PO 08/28/24 10:00 Zinc Sulfate 220 mg DAILY PO 08/28/24 10:00 09/02/24 09:54 220 MG Ascorbic Acid 500 mg BID PO 08/28/24 10:00 09/02/24 09:54 500 MG Bumetanide 1 mg TID PO 08/28/24 06:00 09/02/24 05:26 1 MG Multivitamins 1 tab DAILY PO 08/28/24 10:00 09/02/24 09:54 1 TAB Atorvastatin Calcium 80 mg HS PO 08/30/24 22:00 09/01/24 21:48 80 MG Metoprolol Succinate 25 mg DAILY PO 08/31/24 10:00 09/01/24 10:07 25 MG Sacubitril/ Valsartan 1 tab BID PO 08/30/24 22:00 09/02/24 09:54 1 TAB Empaglifozin 10 mg DAILY PO 08/31/24 10:00 09/02/24 09:54 10 MG Laboratory Results Laboratory Tests 08/31/24 07:11 Blood Gas Results Test 09/02/24 12:34 Arterial Blood pH 7.490 (7.350-7.450) FiO2 % 28.0 Microbiology Microbiology Date/Time Source Procedure Growth Status 08/28/24 08:31 Nose MRSA Screen - Final Complete Assessment/Plan Assessment/Plan Assessment Severe triple-vessel coronary artery disease status post triple-vessel CABG Coronary artery disease s/p multiple PTCA's X 7 TRELL (on ASA) Chronic compensated HFrEF, NYHA class II Hypertension History myocardial infarction Dyslipidemia Hepatitis-C History of tobacco use Obesity Plan/Recommendation We will continue with the following plan/recommendations (Dr. Moncada): 09/02/24--average bp in 100/80. Recommend to initiate spironolactone as part of GDMT for HF. 09/01/24-- BP remains soft. Add MRA spironolactone once BP stabilized. Case discussed with . Transthoracic echocardiogram from 08/09/2024 reveals EF 40% with grade 1 diastolic dysfunction. Initiate guideline directed medical therapy for CHF as tolerated. Add MRA (spironolactone) with stable BP and creatinine function. Continue single antiplatelet therapy and lipid- lowering agent. Patient to get up with physical therapy as tolerated. Patient able to use incentive spirometer at bedside and reached 2000mL. 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 We will order magnesium level and replenish as needed. Continue with close cardiac surveillance and notify cardiology team for any ECG changes. Thank you for allowing us to care for this patient. Please call with any questions or concerns. Critical care time spent: 44 minutes This medical document was created using an electronic medical record system with voice recognition software and computerized dictation system. Although this document has been carefully reviewed, there might still be some phonetic and typographical errors. Occasional wrong-word or ``sound-alike substitutions may have occurred due to the inherent limitations of voice recognition software. These areas are purely typographical due to imperfections of the software programs and do not reflect any compromise in the patient's medical care. Please read the chart carefully and recognize, using context, where these substitutions have occurred. Plan discussed with: Patient Plan discussed with: Patient Date of Service: Sep 02, 2024 Billing Provider: MERCY MONCADA Sr., MD Common Visit Codes: [id number] INP/OBS CARE (HIGH) Consultation Codes: [id number] CONSULT <45MIN KRISTEN BAILEY GROUNDSMAN Sep 02, 2024 20:54
[2024-09-03] VITALS (9 sets, daily range): BP systolic 94–124; BP diastolic 57–74; PULSE 82–90; RESP 16–22; TEMP 97.9–98.6; O2SAT 96–99
[2024-09-03] MEDS: SPIRONOLACTONE 25 MG TAB PO SCH (10:00)
--- NOTE | 2024-09-03 17:33 | DVHPNRES ---
Progress Note Date Seen: Sep 03, 2024 Resident Creating Document: EROS BARKSDALE RESDIENT Medical Necessity Reason Pt with a Central, PICC or Fol: No Subjective Review of Systems Patient is seen and examined at the bedside. Patient is feeling better since admission, complained of stool incontinence. Objective vital signs Vital Sign Date Time Temp Pulse Resp B/P (MAP) Pulse Ox O2 Delivery O2 Flow Rate FiO2 09/03/24 17:08 124/57 (79) 09/03/24 17:07 98.6 85 18 98 98.6 09/03/24 08:00 Nasal Cannula* 2 28 Total Intake and Output 09/02/24 09/02/24 09/03/24 15:00 23:00 07:00 Intake Total 1360 ml 1200 ml Output Total 600 ml 1000 ml Balance 760 ml 200 ml medications Current Medications Medications Dose Ordered Sig/Gisele Route Start Time Stop Time Status Last Admin Dose Admin Sodium Chloride 10 ml Q8HR IV 08/28/24 06:00 09/03/24 14:08 10 ML Enoxaparin Sodium 40 mg DAILY SC 08/28/24 10:00 09/03/24 11:09 40 MG Nitroglycerin 0.4 mg Q5MINP PRN SL 08/28/24 01:30 Morphine Sulfate 2 mg Q30M PRN IV 08/28/24 01:30 Aspirin 81 mg DAILY PO 08/28/24 10:00 09/03/24 11:04 81 MG Ergocalciferol 50,000 unit QWEEKLY PO 08/28/24 10:00 08/28/24 08:18 50,000 UNIT Pantoprazole Sodium 40 mg DAILY@0600 PO 08/29/24 06:00 09/03/24 06:11 40 MG Zinc Sulfate 220 mg DAILY PO 08/28/24 10:00 09/03/24 11:05 220 MG Ascorbic Acid 500 mg BID PO 08/28/24 10:00 09/03/24 11:04 500 MG Bumetanide 1 mg TID PO 08/28/24 06:00 09/03/24 06:17 1 MG Multivitamins 1 tab DAILY PO 08/28/24 10:00 09/03/24 11:04 1 TAB Atorvastatin Calcium 80 mg HS PO 08/30/24 22:00 09/02/24 21:25 80 MG Metoprolol Succinate 25 mg DAILY PO 08/31/24 10:00 09/01/24 10:07 25 MG Empaglifozin 10 mg DAILY PO 08/31/24 10:00 09/03/24 11:07 10 MG Spironolactone 25 mg DAILY PO 09/03/24 10:00 Examination General Appearance: Alert, Oriented X3, Cooperative, No acute distress HEENT: Atraumatic, PERRLA, EOMI, Mucous membrane moist/pink Respiratory: Clear to auscultation, Normal air movement Cardiovascular: Regular rate, Normal S1, Normal S2, No murmurs, no chest wall tenderness Abdominal: Normal bowel sounds, Soft, No tenderness, No hepatospenomegaly, No masses Extremities: No clubbing, No cyanosis, No edema, Normal pulses, No tenderness/swelling Skin: No rashes, No breakdown, No significant lesion Neuro: Normal gait, Normal speech, Strength at 5/5 X4 ext, Normal tone, Sensation intact, Cranial nerves 3-12 NL, Reflexes 2+ Psych/Mental Status: Mental status NL, Mood NL laboratory and microbiology Laboratory Tests 08/31/24 07:11 Test 08/31/24 07:11 Range/Units Serum Glucose 121 H 74-106 mg/dL Microbiology Date/Time Source Procedure Growth Status 08/28/24 08:31 Nose MRSA Screen - Final Complete Problem List/Assessment/Plan Problem List/Assessment/Plan # CAD, triple-vessel disease, S/P CABG ( AVENDAÑO to LAD, SVG to OM/PDA) on 08/15/2024 at [facility], history of multiple stents x7 TRELL -continue aspirin 81 mg p.o. daily -Atorvastatin 40 mg p.o. q.h.s. -continue metoprolol tartrate 25 mg p.o. b.i.d. - Continue physical therapy. # Hypertensive heart disease -continue metoprolol tartrate 25 mg p.o. b.i.d. - Echo in [place] post CABG revealed normal EF 50% # prediabetes -HBA1c at [facility] 6.1 -cardiac diet # Hyperlipidemia -continue atorvastatin 40 mg p.o. q.h.s. # Obesity -patient was counseled about the effect of obesity on health, weight reduction, physical activity, healthy diet # Hepatitis-C -follow up outpatient with the primary care physician for further care Diet-cardiac diet, low carb diet Goals of care, Code status full code ; discussed with >15 minutes PUD prophylaxis: Pantoprazole DVT prophylaxis: Analisanox Patient was discharged on 07/01/2024, waiting for SNF placement for physical therapy. Patient has been accepted at [place] [facility], waiting for bed education. Plan discussed with Dr. Hicks Plan discussed with: Patient, Other (RN) My Orders My Orders Orders - EROS BARKSDALE RESDINIGEL Procedure Category Date Status Time Spironolactone PHA 09/03/24 In Process (Aldactone) 10:00 Orthostatic Vital ORDERS 09/03/24 Transmitted Signs 13:22 Basic Metabolic Panel LAB 09/04/24 Verified 04:00 Complete Blood Count LAB 09/04/24 Verified 04:00 Dietary Evaluation Review Comments: 1. Vit D 81, Toribio down Vit D supplementation 2. GFR 63, consider a 0.8-1.0 g/kg protein (60-75g) for preventing uremic syndrome, 3. recommend CCHO-60g Protein 60-75g Cardiac Diet, avoid cafffeine 4. Provide DM education handbook 5. Refer to Yoly Kirkland for DM education Expected Outcomes/Goals: normal blood sugar lesson uremic syndrome Wt management upon D/C Date of Service: Sep 03, 2024 Billing Provider: ABDOULAYE HICKS MD Common Visit Codes: [id number] INP/OBS CARE(HIGH) EROS BARKSDALE RESDIENT Sep 03, 2024 17:33 ABDOULAYE HICKS MD Sep 06, 2024 13:37
[2024-09-04] VITALS (7 sets, daily range): BP systolic 107–123; BP diastolic 68–83; PULSE 72–85; RESP 17–20; TEMP 96.5–98; O2SAT 95–100
[2024-09-04 06:55] LABS: Chloride 102 mmol/L (98-107); Potassium 3.7 mmol/L (3.5-5.1); Sodium 139 mmol/L (136-145)
[2024-09-04 06:56] LABS: Anion Gap 8 (5-15); Calcium 10.3 mg/dL (8.7-10.4); Carbon Dioxide 29 mmol/L (20-31); Hematocrit 32.8 % (41.0-53.0); Hemoglobin 11.3 g/dL (13.5-17.5); Mean Corpuscular Hemoglobin 31.4 pg (28.0-32.0); Mean Corpuscular Volume 90.8 fL (80.0-100.0); Nucleated Red Blood Cells % 0.1 %
[2024-09-04 07:01] LABS: BUN/Creatinine Ratio 26.8 (10.0-20.0)
[2024-09-04 07:02] LABS: Blood Urea Nitrogen 33 mg/dL (9-23); Glucose 117 mg/dL (74-106)
--- NOTE | 2024-09-04 15:41 | DVHPNRES ---
Progress Note Date Seen: Sep 04, 2024 Resident Creating Document: EROS BARKSDALE RESDIENT Medical Necessity Reason Pt with a Central, PICC or Fol: No Subjective Review of Systems Patient seen and examined at the bedside. Patient is feeling better since admission. The patient does not have any active complaint including chest pain with shortness of breathe. Patient had no nighttime event. Objective vital signs Vital Sign Date Time Temp Pulse Resp B/P (MAP) Pulse Ox O2 Delivery O2 Flow Rate FiO2 09/04/24 14:03 107/77 09/04/24 13:00 96.5 81 19 100 96.5 09/04/24 07:50 Room Air* 0 21 Total Intake and Output 09/03/24 09/03/24 09/04/24 15:00 23:00 07:00 Intake Total 1200 ml 250 ml Balance 1200 ml 250 ml medications Current Medications Medications Dose Ordered Sig/Gisele Route Start Time Stop Time Status Last Admin Dose Admin Sodium Chloride 10 ml Q8HR IV 08/28/24 06:00 09/04/24 14:03 10 ML Enoxaparin Sodium 40 mg DAILY SC 08/28/24 10:00 09/04/24 10:17 40 MG Nitroglycerin 0.4 mg Q5MINP PRN SL 08/28/24 01:30 Morphine Sulfate 2 mg Q30M PRN IV 08/28/24 01:30 Aspirin 81 mg DAILY PO 08/28/24 10:00 09/04/24 10:14 81 MG Ergocalciferol 50,000 unit QWEEKLY PO 08/28/24 10:00 08/28/24 08:18 50,000 UNIT Pantoprazole Sodium 40 mg DAILY@0600 PO 08/29/24 06:00 09/04/24 05:50 40 MG Zinc Sulfate 220 mg DAILY PO 08/28/24 10:00 09/04/24 10:14 220 MG Ascorbic Acid 500 mg BID PO 08/28/24 10:00 09/04/24 10:14 500 MG Bumetanide 1 mg TID PO 08/28/24 06:00 09/04/24 14:03 1 MG Multivitamins 1 tab DAILY PO 08/28/24 10:00 09/04/24 10:14 1 TAB Atorvastatin Calcium 80 mg HS PO 08/30/24 22:00 09/03/24 21:23 80 MG Metoprolol Succinate 25 mg DAILY PO 08/31/24 10:00 09/04/24 10:15 25 MG Empaglifozin 10 mg DAILY PO 08/31/24 10:00 09/04/24 10:14 10 MG Spironolactone 25 mg DAILY PO 09/03/24 10:00 09/04/24 10:15 25 MG Examination General Appearance: Alert, Oriented X3, Cooperative, No acute distress HEENT: Atraumatic, PERRLA, EOMI, Mucous membrane moist/pink Respiratory: Clear to auscultation, Normal air movement Cardiovascular: Regular rate, Normal S1, Normal S2, No murmurs, no chest wall tenderness Abdominal: Normal bowel sounds, Soft, No tenderness, No hepatospenomegaly, No masses Extremities: No clubbing, No cyanosis, No edema, Normal pulses, No tenderness/swelling Skin: No rashes, No breakdown, No significant lesion Neuro: Normal gait, Normal speech, Strength at 5/5 X4 ext, Normal tone, Sensation intact, Cranial nerves 3-12 NL, Reflexes 2+ Psych/Mental Status: Mental status NL, Mood NL laboratory and microbiology Laboratory Tests 09/04/24 06:32 Test 09/04/24 06:32 Range/Units Serum Glucose 117 H 74-106 mg/dL Microbiology Date/Time Source Procedure Growth Status 08/28/24 08:31 Nose MRSA Screen - Final Complete Labs and/or images reviewed: Labs reviewed by me, Image(s) reviewed by me Problem List/Assessment/Plan Problem List/Assessment/Plan # CAD, triple-vessel disease, S/P CABG ( AVENDAÑO to LAD, SVG to OM/PDA) on 08/15/2024 at [facility], history of multiple stents x7 TRELL -continue aspirin 81 mg p.o. daily -Atorvastatin 40 mg p.o. q.h.s. -continue metoprolol tartrate 25 mg p.o. b.i.d. - Continue physical therapy. # Hypertensive heart disease -continue metoprolol tartrate 25 mg p.o. b.i.d. - Echo in [place] post CABG revealed normal EF 50% # prediabetes -HBA1c at [facility] 6.1 -cardiac diet # Hyperlipidemia -continue atorvastatin 40 mg p.o. q.h.s. # Obesity -patient was counseled about the effect of obesity on health, weight reduction, physical activity, healthy diet # Hepatitis-C -follow up outpatient with the primary care physician for further care Diet-cardiac diet, low carb diet Goals of care, Code status full code ; discussed with >15 minutes PUD prophylaxis: Pantoprazole DVT prophylaxis: Analisanox Patient was discharged on 07/01/2024, waiting for SNF placement for physical therapy. Patient has been accepted at [facility] acute care, waiting for bed allocation. Plan discussed with Dr. Hicks Plan discussed with: Patient, Other (RN) My Orders My Orders Orders - EROS BARKSDALE RESDIENT Procedure Category Date Status Time Transfer Orders XFER 09/04/24 Transmitted 11:01 Transfer Orders XFER 09/04/24 Transmitted 11:01 Dietary Evaluation Review Comments: 1. Vit D 81, Toribio down Vit D supplementation 2. GFR 63, consider a 0.8-1.0 g/kg protein (60-75g) for preventing uremic syndrome, 3. recommend CCHO-60g Protein 60-75g Cardiac Diet, avoid cafffeine 4. Provide DM education handbook 5. Refer to Yoly Kirkland for DM education Expected Outcomes/Goals: normal blood sugar lesson uremic syndrome Wt management upon D/C Date of Service: Sep 04, 2024 Billing Provider: ABDOULAYE HICKS MD Common Visit Codes: [id number] INP/OBS CARE(MOD) EROS BARKSDALE RESDIENT Sep 04, 2024 15:41 ABDOULAYE HICKS MD Sep 06, 2024 13:40
[2024-09-05] VITALS (8 sets, daily range): BP systolic 104–142; BP diastolic 71–81; PULSE 71–87; RESP 17–22; TEMP 97.1–98.1; O2SAT 98–100
[2024-09-05 06:56] LABS: Anion Gap 9 (5-15); Carbon Dioxide 28 mmol/L (20-31); Chloride 101 mmol/L (98-107); Potassium 3.5 mmol/L (3.5-5.1); Sodium 138 mmol/L (136-145)
[2024-09-05 06:57] LABS: Calcium 10.0 mg/dL (8.7-10.4)
[2024-09-05 07:02] LABS: BUN/Creatinine Ratio 26.0 (10.0-20.0)
[2024-09-05 07:03] LABS: Blood Urea Nitrogen 32 mg/dL (9-23); Glucose 113 mg/dL (74-106)
--- NOTE | 2024-09-05 15:08 | DVHPNRES ---
Progress Note Date Seen: Sep 05, 2024 Resident Creating Document: EROS BARKSDALE RESDIENT Medical Necessity Reason Pt with a Central, PICC or Fol: No Subjective Review of Systems Patient seen and examined at bedside. Patient does not have any active complaint including chest pain or shortness breaths. Objective vital signs Vital Sign Date Time Temp Pulse Resp B/P (MAP) Pulse Ox O2 Delivery O2 Flow Rate FiO2 09/05/24 13:29 97.6 82 22 133/80 (97) 98 97.6 09/05/24 07:53 Room Air* 0 21 Total Intake and Output 09/04/24 09/04/24 09/05/24 15:00 23:00 07:00 Intake Total 1000 ml 400 ml Output Total 1100 ml Balance 1000 ml -700 ml medications Current Medications Medications Dose Ordered Sig/Gisele Route Start Time Stop Time Status Last Admin Dose Admin Sodium Chloride 10 ml Q8HR IV 08/28/24 06:00 09/05/24 06:03 10 ML Enoxaparin Sodium 40 mg DAILY SC 08/28/24 10:00 09/05/24 09:31 40 MG Nitroglycerin 0.4 mg Q5MINP PRN SL 08/28/24 01:30 Morphine Sulfate 2 mg Q30M PRN IV 08/28/24 01:30 Aspirin 81 mg DAILY PO 08/28/24 10:00 09/05/24 09:30 81 MG Ergocalciferol 50,000 unit QWEEKLY PO 08/28/24 10:00 08/28/24 08:18 50,000 UNIT Pantoprazole Sodium 40 mg DAILY@0600 PO 08/29/24 06:00 09/05/24 06:00 40 MG Zinc Sulfate 220 mg DAILY PO 08/28/24 10:00 09/05/24 09:29 220 MG Ascorbic Acid 500 mg BID PO 08/28/24 10:00 09/05/24 09:30 500 MG Bumetanide 1 mg TID PO 08/28/24 06:00 09/04/24 21:56 1 MG Multivitamins 1 tab DAILY PO 08/28/24 10:00 09/05/24 09:30 1 TAB Atorvastatin Calcium 80 mg HS PO 08/30/24 22:00 09/04/24 21:56 80 MG Metoprolol Succinate 25 mg DAILY PO 08/31/24 10:00 09/05/24 09:28 25 MG Empaglifozin 10 mg DAILY PO 08/31/24 10:00 09/05/24 09:26 10 MG Spironolactone 25 mg DAILY PO 09/03/24 10:00 09/05/24 09:30 25 MG Examination General Appearance: Alert, Oriented X3, Cooperative, No acute distress HEENT: Atraumatic, PERRLA, EOMI, Mucous membrane moist/pink Respiratory: Clear to auscultation, Normal air movement Cardiovascular: Regular rate, Normal S1, Normal S2, No murmurs, no chest wall tenderness Abdominal: Normal bowel sounds, Soft, No tenderness, No hepatospenomegaly, No masses Extremities: No clubbing, No cyanosis, No edema, Normal pulses, No tenderness/swelling Skin: No rashes, No breakdown, No significant lesion Neuro: Normal gait, Normal speech, Strength at 5/5 X4 ext, Normal tone, Sensation intact, Cranial nerves 3-12 NL, Reflexes 2+ Psych/Mental Status: Mental status NL, Mood NL laboratory and microbiology Laboratory Tests 09/05/24 05:58 09/04/24 06:32 Test 09/05/24 05:58 Range/Units Serum Glucose 113 H 74-106 mg/dL Microbiology Date/Time Source Procedure Growth Status 08/28/24 08:31 Nose MRSA Screen - Final Complete Labs and/or images reviewed: Labs reviewed by me, Image(s) reviewed by me Problem List/Assessment/Plan Problem List/Assessment/Plan # CAD, triple-vessel disease, S/P CABG ( AVENDAÑO to LAD, SVG to OM/PDA) on 08/15/2024 at [facility], history of multiple stents x7 TRELL -continue aspirin 81 mg p.o. daily -Atorvastatin 40 mg p.o. q.h.s. -continue metoprolol tartrate 25 mg p.o. b.i.d. - Continue physical therapy. # Hypertensive heart disease -continue metoprolol tartrate 25 mg p.o. b.i.d. - Echo in [place] post CABG revealed normal EF 50% # prediabetes -HBA1c at [facility] 6.1 -cardiac diet # Hyperlipidemia -continue atorvastatin 40 mg p.o. q.h.s. # Obesity -patient was counseled about the effect of obesity on health, weight reduction, physical activity, healthy diet # Hepatitis-C -follow up outpatient with the primary care physician for further care Diet-cardiac diet, low carb diet Goals of care, Code status full code ; discussed with >15 minutes PUD prophylaxis: Pantoprazole DVT prophylaxis: Lovenox Patient was discharged on 07/01/2024, waiting for SNF placement for physical therapy. Patient has been accepted at [place] [facility], still waiting for bed allocation. Plan discussed with Dr. Hicks Plan discussed with: Patient, Other (RN) My Orders My Orders Orders - EROS BARKSDALE RESDINIGEL Procedure Category Date Status Time Transfer Orders XFER 09/05/24 Transmitted 11:36 Dietary Evaluation Review Comments: 1. Vit D 81, Toribio down Vit D supplementation 2. GFR 63, consider a 0.8-1.0 g/kg protein (60-75g) for preventing uremic syndrome, 3. recommend CCHO-60g Protein 60-75g Cardiac Diet, avoid cafffeine 4. Provide DM education handbook 5. Refer to Yoly Kirkland for DM education Expected Outcomes/Goals: normal blood sugar lesson uremic syndrome Wt management upon D/C Date of Service: Sep 05, 2024 Billing Provider: ABDOULAYE HICKS MD Common Visit Codes: [id number] INP/OBS CARE(HIGH) EROS BARKSDALE RESDIENT Sep 05, 2024 15:08 ABDOULAYE HICKS MD Sep 06, 2024 14:00
[2024-09-06 01:00] VITALS: BP 116/79; PULSE 84; RESP 14; RESP 19; TEMP 97.7; O2SAT 96
[2024-09-06 05:00] VITALS: BP 123/76; PULSE 82; RESP 19; TEMP 97.6; O2SAT 97
[2024-09-06 08:00] VITALS: PULSE 78
[2024-09-06 09:14] VITALS: BP 106/70; PULSE 82; RESP 19; TEMP 97.4; O2SAT 99
[2024-09-06 13:00] VITALS: BP 107/75; PULSE 72; RESP 17; TEMP 97.5; O2SAT 98
[2024-09-06 16:45] VITALS: BP 102/69; PULSE 71; RESP 20; TEMP 97.6; O2SAT 17
--- NOTE | 2024-09-06 17:33 | DVHPNRES ---
Progress Note Date Seen: Sep 06, 2024 Resident Creating Document: EROS BARKSDALE RESDIENT Medical Necessity Reason Pt with a Central, PICC or Fol: No Objective vital signs Vital Sign Date Time Temp Pulse Resp B/P (MAP) Pulse Ox O2 Delivery O2 Flow Rate FiO2 09/06/24 16:45 97.6 71 20 102/69 (80) 17 97.6 09/06/24 08:01 Nasal Cannula* 2 28 Total Intake and Output 09/05/24 09/05/24 09/06/24 15:00 23:00 07:00 Intake Total 300 ml Output Total 400 ml 2040 ml Balance -100 ml -2040 ml medications Current Medications Medications Dose Ordered Sig/Gisele Route Start Time Stop Time Status Last Admin Dose Admin Sodium Chloride 10 ml Q8HR IV 08/28/24 06:00 09/06/24 14:00 10 ML Enoxaparin Sodium 40 mg DAILY SC 08/28/24 10:00 09/06/24 10:31 40 MG Nitroglycerin 0.4 mg Q5MINP PRN SL 08/28/24 01:30 Aspirin 81 mg DAILY PO 08/28/24 10:00 09/06/24 10:31 81 MG Ergocalciferol 50,000 unit QWEEKLY PO 08/28/24 10:00 08/28/24 08:18 50,000 UNIT Pantoprazole Sodium 40 mg DAILY@0600 PO 08/29/24 06:00 09/06/24 05:54 40 MG Zinc Sulfate 220 mg DAILY PO 08/28/24 10:00 09/06/24 10:32 220 MG Ascorbic Acid 500 mg BID PO 08/28/24 10:00 09/06/24 10:32 500 MG Bumetanide 1 mg TID PO 08/28/24 06:00 09/06/24 05:56 1 MG Multivitamins 1 tab DAILY PO 08/28/24 10:00 09/06/24 10:32 1 TAB Atorvastatin Calcium 80 mg HS PO 08/30/24 22:00 09/05/24 22:11 80 MG Metoprolol Succinate 25 mg DAILY PO 08/31/24 10:00 09/06/24 10:33 25 MG Empaglifozin 10 mg DAILY PO 08/31/24 10:00 09/06/24 10:32 10 MG Spironolactone 25 mg DAILY PO 09/03/24 10:00 09/06/24 10:32 25 MG Examination General Appearance: Alert, Oriented X3, Cooperative, No acute distress HEENT: Atraumatic, PERRLA, EOMI, Mucous membrane moist/pink Respiratory: Clear to auscultation, Normal air movement Cardiovascular: Regular rate, Normal S1, Normal S2, No murmurs, no chest wall tenderness Abdominal: Normal bowel sounds, Soft, No tenderness, No hepatospenomegaly, No masses Extremities: No clubbing, No cyanosis, No edema, Normal pulses, No tenderness/swelling Skin: No rashes, No breakdown, No significant lesion Neuro: Normal gait, Normal speech, Strength at 5/5 X4 ext, Normal tone, Sensation intact, Cranial nerves 3-12 NL, Reflexes 2+ Psych/Mental Status: Mental status NL, Mood NL laboratory and microbiology Laboratory Tests 09/05/24 05:58 09/04/24 06:32 Test 09/05/24 05:58 Range/Units Serum Glucose 113 H 74-106 mg/dL Microbiology Date/Time Source Procedure Growth Status 08/28/24 08:31 Nose MRSA Screen - Final Complete Labs and/or images reviewed: Labs reviewed by me, Image(s) reviewed by me Problem List/Assessment/Plan Problem List/Assessment/Plan # CAD, triple-vessel disease, S/P CABG ( AVENDAÑO to LAD, SVG to OM/PDA) on 08/15/2024 at [facility], history of multiple stents x7 TRELL -continue aspirin 81 mg p.o. daily -Atorvastatin 40 mg p.o. q.h.s. -continue metoprolol tartrate 25 mg p.o. b.i.d. - Continue physical therapy. # Hypertensive heart disease -continue metoprolol tartrate 25 mg p.o. b.i.d. - Echo in [place] post CABG revealed normal EF 50% # prediabetes -HBA1c at [facility] 6.1 -cardiac diet # Hyperlipidemia -continue atorvastatin 40 mg p.o. q.h.s. # Obesity -patient was counseled about the effect of obesity on health, weight reduction, physical activity, healthy diet # Hepatitis-C -follow up outpatient with the primary care physician for further care Diet-cardiac diet, low carb diet Goals of care, Code status full code ; discussed with >15 minutes PUD prophylaxis: Pantoprazole DVT prophylaxis: Lovenox Patient was discharged on 07/01/2024, waiting for SNF placement for physical therapy. Patient has been accepted at [facility], patient discharged to the SNF today.. Plan discussed with Dr. Hicks Plan discussed with: Other (RN) Dietary Evaluation Review Comments: 1. Vit D 81, Toribio down Vit D supplementation 2. GFR 63, consider a 0.8-1.0 g/kg protein (60-75g) for preventing uremic syndrome, 3. recommend CCHO-60g Protein 60-75g Cardiac Diet, avoid cafffeine 4. Provide DM education handbook 5. Refer to Yoly Kirkland for DM education Expected Outcomes/Goals: normal blood sugar lesson uremic syndrome Wt management upon D/C EROS BARKSDALE RESDIENT Sep 06, 2024 17:33
== END 2024-09-06 20:02 | DRG 303 ==
LOC: TELE-EAST 22:24 → EAST 08-30 10:21 → TELE-EAST 09-02 13:09 → EAST 09-04 11:11 → TELE-EAST 09-04 23:31 → EAST 09-05 11:36
PROVIDERS: ADMIT Student in an Organized Health Care Education/Training Program; ATTEND Student in an Organized Health Care Education/Training Program
DX: I25.10 Atherosclerotic heart disease of native coronary artery without angina pectoris (principal); I50.22 Chronic systolic (congestive) heart failure; B19.20 Unspecified viral hepatitis C without hepatic coma; E78.5 Hyperlipidemia, unspecified; R73.03 Prediabetes; I49.3 Ventricular premature depolarization; E66.01 Morbid (severe) obesity due to excess calories; E66.811 Obesity, class 1; I11.0 Hypertensive heart disease with heart failure; I48.91 Unspecified atrial fibrillation; Z95.5 Presence of coronary angioplasty implant and graft; Z80.1 Family history of malignant neoplasm of trachea, bronchus and lung; Z79.82 Long term (current) use of aspirin; I25.2 Old myocardial infarction; Z79.899 Other long term (current) drug therapy; Z87.891 Personal history of nicotine dependence; Z68.32 Body mass index [BMI] 32.0-32.9, adult
CPT/HCPCS: 36415; 36600; 71045; 80048; 80053; 82306; 82607; 82746; 82805; 82962; 83735; 84443; 85025; 86803; 87081; 87340; 93005; 97110; 97116; 97163; 97530; G0378